=== PATIENT | female | born 1935 ===

== ENCOUNTER 2020-12-25 11:15 | Inpatient (IN) | payer MEDICARE ==
--- NOTE | 2020-12-25 11:30 | Event Note ---
ED Screening Note Date of service: 12/25/20 Time: 11:23 ED Screening Note: Patient sent here by PCP for hypokalemia and UTI Denies symptoms This initial assessment/diagnostic orders/clinical plan/treatment(s) is/are subject to change based on patients health status, clinical progression and re- assessment by fellow clinical providers in the ED. Further treatment and workup at subsequent clinical providers discretion. Patient/guardian urged not to elope from the ED as their condition may be serious if not clinically assessed and managed. Initial orders include: labs
[2020-12-25 12:16] LABS: Hematocrit 35.1 % (30.3-42.9); Hemoglobin 11.7 gm/dl (10.1-14.3); Mean Corpuscular HGB Conc 33 % (30-34); Mean Corpuscular Volume 77 fl (79-97); Platelet Count 473 K/mm3 (140-440); Red Blood Count 4.56 M/mm3 (3.65-5.03); Red Cell Distribution Width 19.1 % (13.2-15.2)
[2020-12-25 12:20] LABS: Albumin 3.5 g/dL (3.9-5); Calcium 9.4 mg/dL (8.4-10.2)
[2020-12-25] MEDS ORDERED: SODIUM CHLORIDE 0.9% 1000 ML IV SOLN IV ONE (12:41)
[2020-12-25] MEDS ORDERED: POTASSIUM CHLORIDE 10 MEQ 10 MEQ/100 ML BAG IV ONE (12:45)
--- NOTE | 2020-12-25 13:01 | Emergency Department Report ---
ED General Adult HPI - General Chief complaint: Recheck/Abnormal Lab/Rx Stated complaint: ABNORMAL LABS Time Seen by Provider: 12/25/20 11:20 Source: patient Mode of arrival: Ambulatory Limitations: No Limitations - History of Present Illness Initial comments: Patient 85-year-old female with past medical history of hypertension diabetes who is presenting with abnormal laboratory studies. Patient was seen by her primary care physician yesterday and was called to come in for evaluation. Patient has had fatigue and decreased ability to ambulate with less eating and drinking over the last several days. Laboratory studies showed a elevated white count, low potassium level, and evidence of UTI. Patient states she feels just fatigued and tired. She states when she walks she is gets very fatigued and has to stop. She denies any cough congestion nausea vomiting or diarrhea at this time. - Related Data Allergies Allergy/AdvReac Type Severity Reaction Status Date / Time Penicillins Allergy Unknown Verified 12/25/20 11:19 ED Review of Systems ROS: Stated complaint: ABNORMAL LABS Other details as noted in HPI Comment: All other systems reviewed and negative ED Past Medical Hx - Past Medical History Hx Hypertension: Yes Hx Diabetes: Yes - Surgical History Additional Surgical History: kidney - Social History Smoking Status: Never Smoker ED Physical Exam - General Limitations: No Limitations General appearance: alert, in no apparent distress - Head Head exam: Present: atraumatic, normocephalic - Eye Eye exam: Present: normal appearance, PERRL, EOMI - ENT ENT exam: Present: mucous membranes moist - Neck Neck exam: Present: normal inspection - Respiratory Respiratory exam: Present: normal lung sounds bilaterally. Absent: respiratory distress, wheezes, rales, rhonchi - Cardiovascular Cardiovascular Exam: Present: regular rate, normal rhythm, normal heart sounds. Absent: systolic murmur, diastolic murmur, rubs, gallop - GI/Abdominal GI/Abdominal exam: Present: soft, normal bowel sounds. Absent: distended, tenderness, guarding, rebound - Extremities Exam Extremities exam: Present: normal inspection - Back Exam Back exam: Present: normal inspection - Neurological Exam Neurological exam: Present: alert, oriented X3 - Psychiatric Psychiatric exam: Present: normal affect, normal mood - Skin Skin exam: Present: warm, dry, intact, normal color. Absent: rash ED Course Vital Signs 12/25/20 12/25/20 12/25/20 11:19 12:48 13:00 Temperature 98.0 F Pulse Rate 76 79 73 Respiratory 18 25 H 24 Rate Blood Pressure 130/75 O2 Sat by Pulse 92 91 Oximetry 12/25/20 12/25/20 12/25/20 13:15 13:30 13:46 Temperature Pulse Rate 70 73 74 Respiratory 23 20 24 Rate Blood Pressure 144/64 144/64 148/66 O2 Sat by Pulse 92 92 92 Oximetry 12/25/20 12/25/20 12/25/20 14:00 14:16 15:25 Temperature Pulse Rate 70 67 66 Respiratory 20 22 21 Rate Blood Pressure 149/98 163/79 158/70 O2 Sat by Pulse 93 94 93 Oximetry 12/25/20 15:28 Temperature 98 F Pulse Rate Respiratory Rate Blood Pressure O2 Sat by Pulse Oximetry ED Medical Decision Making - Lab Data Result diagrams: 12/25/20 11:35 12/25/20 11:35 Lab Results 12/25/20 12/25/20 Range/Units 11:35 11:35 WBC 20.1 H (4.5-11.0) K/mm3 RBC 4.56 (3.65-5.03) M/mm3 Hgb 11.7 (10.1-14.3) gm/dl Hct 35.1 (30.3-42.9) % MCV 77 L (79-97) fl MCH 26 L (28-32) pg MCHC 33 (30-34) % RDW 19.1 H (13.2-15.2) % Plt Count 473 H (140-440) K/mm3 Seg Neutrophils % Fly Fishing Guide Sodium 122 L (137-145) mmol/L Potassium 2.7 L* (3.6-5.0) mmol/L Chloride 80.2 L (98-107) mmol/L Carbon Dioxide 21 L (22-30) mmol/L Anion Gap 24 mmol/L BUN 35 H (7-17) mg/dL Creatinine 0.9 (0.6-1.2) mg/dL Estimated GFR 60 ml/min BUN/Creatinine Ratio 39 % Glucose 154 H (65-100) mg/dL Calcium 9.4 (8.4-10.2) mg/dL Magnesium 2.20 (1.7-2.3) mg/dL Total Bilirubin 0.90 (0.1-1.2) mg/dL AST 34 (5-40) units/L ALT 29 (7-56) units/L Alkaline Phosphatase 77 (35-129) units/L Total Protein 7.0 (6.3-8.2) g/dL Albumin 3.5 L (3.9-5) g/dL Albumin/Globulin Ratio 1.0 % Patient sodium on laboratory studies yesterday was 133 and there has been a significant drop to 122. Potassium 2.7. Patient's white count was 16 yesterday is now elevated to 20 Lab Results 12/25/20 12/25/20 Range/Units 11:35 11:35 WBC 20.1 H (4.5-11.0) K/mm3 RBC 4.56 (3.65-5.03) M/mm3 Hgb 11.7 (10.1-14.3) gm/dl Hct 35.1 (30.3-42.9) % MCV 77 L (79-97) fl MCH 26 L (28-32) pg MCHC 33 (30-34) % RDW 19.1 H (13.2-15.2) % Plt Count 473 H (140-440) K/mm3 Add Manual Diff Complete Total Counted 100 Seg Neutrophils % Fly Fishing Guide Seg Neuts % (Manual) 89.0 H (40.0-70.0) % Band Neutrophils % 2.0 % Lymphocytes % (Manual) 5.0 L (13.4-35.0) % Monocytes % (Manual) 4.0 (0.0-7.3) % Nucleated RBC % Not Reportable Seg Neutrophils # Man 17.9 H (1.8-7.7) K/mm3 Band Neutrophils # 0.4 K/mm3 Lymphocytes # (Manual) 1.0 L (1.2-5.4) K/mm3 Abs React Lymphs (Man) 0.0 K/mm3 Monocytes # (Manual) 0.8 (0.0-0.8) K/mm3 Eosinophils # (Manual) 0.0 (0.0-0.4) K/mm3 Basophils # (Manual) 0.0 (0.0-0.1) K/mm3 Metamyelocytes # 0.0 K/mm3 Myelocytes # 0.0 K/mm3 Promyelocytes # 0.0 K/mm3 Blast Cells # 0.0 K/mm3 WBC Morphology Not Reportable Hypersegmented Neuts Not Reportable Hyposegmented Neuts Not Reportable Hypogranular Neuts Not Reportable Smudge Cells Not Reportable Toxic Granulation Not Reportable Toxic Vacuolation Not Reportable Dohle Bodies Not Reportable Pelger-Huet Anomaly Not Reportable Ernie Rods Not Reportable Platelet Estimate Consistent w auto Clumped Platelets Not Reportable Plt Clumps, EDTA Not Reportable Large Platelets Not Reportable Giant Platelets Not Reportable Platelet Satelliting Not Reportable Plt Morphology Comment Not Reportable RBC Morphology Not Reportable Dimorphic RBCs Not Reportable Polychromasia Not Reportable Hypochromasia 1+ Poikilocytosis Not Reportable Anisocytosis 1+ Microcytosis Not Reportable Macrocytosis Not Reportable Spherocytes Not Reportable Pappenheimer Bodies Not Reportable Sickle Cells Not Reportable Target Cells Not Reportable Tear Drop Cells Not Reportable Ovalocytes Not Reportable Helmet Cells Not Reportable [place] Bodies Not Reportable [place] Rings Not Reportable Trina Cells Not Reportable Bite Cells Not Reportable Crenated Cell Not Reportable Elliptocytes Not Reportable Acanthocytes (Spur) Not Reportable Rouleaux Not Reportable Hemoglobin C Crystals Not Reportable Schistocytes Not Reportable Malaria parasites Not Reportable Louis Bodies Not Reportable Hem Pathologist Commnt No Sodium 122 L (137-145) mmol/L Potassium 2.7 L* (3.6-5.0) mmol/L Chloride 80.2 L (98-107) mmol/L Carbon Dioxide 21 L (22-30) mmol/L Anion Gap 24 mmol/L BUN 35 H (7-17) mg/dL Creatinine 0.9 (0.6-1.2) mg/dL Estimated GFR 60 ml/min BUN/Creatinine Ratio 39 % Glucose 154 H (65-100) mg/dL Calcium 9.4 (8.4-10.2) mg/dL Magnesium 2.20 (1.7-2.3) mg/dL Total Bilirubin 0.90 (0.1-1.2) mg/dL AST 34 (5-40) units/L ALT 29 (7-56) units/L Alkaline Phosphatase 77 (35-129) units/L Total Protein 7.0 (6.3-8.2) g/dL Albumin 3.5 L (3.9-5) g/dL Albumin/Globulin Ratio 1.0 % - EKG Data -: EKG Interpreted by Me - EKG Data 12/25/20 13:43 EKG shows sinus rhythm with a rate of 71. Evidence of LVH. Poor R wave progression. Intervals showed prolonged QT. No ST segment elevations or depressions. Occasional PVC - Medical Decision Making Patient with significant drop in the sodium level. Patient started on IV hydration and she will be admitted to the hospitalist service. Was reported that the patient had a UTI prior to her arrival. Urine appears normal at this time however cultures will be done. Is possible patient is already been pretreated with some antibiotics and is improving. White count is significantly elevated. Patient mated to the hospitalist service. Critical care attestation.: If time is entered above; I have spent that time in minutes in the direct care of this critically ill patient, excluding procedure time. ED Disposition Clinical Impression: Hypokalemia, Hyponatremia, Dehydration, Failure to thrive Disposition: 09 OP ADMIT IP TO THIS HOSP Is pt being admited?: Yes Does the pt Need Aspirin: No Condition: Stable Time of Disposition: 15:44
--- NOTE | 2020-12-25 13:29 | XRay Report ---
CHEST 1 VIEW INDICATION: dyspnea. COMPARISON: None. FINDINGS: Support devices: None. Heart: Normal. Lungs/Pleura: No acute pulmonary or pleural findings. There is a punctate calcified granuloma in the right lower lung with mild calcified right hilar nodes. There is elevation the left hemidiaphragm wit h presumed atelectasis in the left lung base. IMPRESSION: 1. No acute findings. Signer Name: Lorenzo Reddy MD Signed: 12/25/2020 1:25 PM Workstation Name: [id number]
[2020-12-25] MEDS ORDERED: ACETAMINOPHEN 325 MG TAB PO PRN ×2 (13:55→14:30)
--- NOTE | 2020-12-25 13:55 | History and Physical Report ---
History of Present Illness Chief complaint: She is just real weak History of present illness: 85 YO Female with HTN, DM, Vascular Dementia without Behavioral Disturbance, Cerebral Atherosclerosis presents ED for evaluation. Patient reports "I feel weak". Patient has diminished cognition at the time my evaluation and provides minimal history. Patient daughter is at bedside during exam and interview and provides more detailed history. As per daughter the patient has experienced increased weakness and confusion over the past 2 weeks with persistently worsening symptoms over the past 1 week. Patient daughter also reports that patient is unable to walk and has diminished oral intake. Patient transported to [facility] via private vehicle for further care and evaluation of the aforementioned symptoms. The patient was seen and evaluated in the emergency department. All lab and imaging studies reviewed. The patient was found to have urinary tract infection complicated by sepsis, hyponatremia, hypokalemia, as well as debility. The patient was found to have a palliative performance score of 30%. The patient is bedbound and nonambulatory and requires 5/6 assistance with activities of daily living. Patient admitted to medical floor and initiated on sepsis protocol. No reports of fever, chills, chest pain, palpitation, productive cough, skin rash, recent ill contacts, or known exposure to COVID-19. No prior admission for review. No medication listed at time of admission for reconciliation. Advanced care planning conducted in ED. Past History Past Medical History: diabetes, hypertension, other (See HPI) Past Surgical History: Other (Kidney surgery) Social history: lives with family. denies: smoking, alcohol abuse, prescription drug abuse Family history: diabetes, hypertension Medications and Allergies Allergies Allergy/AdvReac Type Severity Reaction Status Date / Time Penicillins Allergy Unknown Verified 12/25/20 11:19 Review of Systems ROS unobtainable: due to mental status Exam - Constitutional Vitals: Temp Pulse Resp BP Pulse Ox 98.0 F 76 18 130/75 92 12/25/20 11:19 12/25/20 11:19 12/25/20 11:19 12/25/20 11:19 12/25/20 11:19 General appearance: Present: mild distress - EENT Eyes: Present: PERRL ENT: clear oral mucosa, hearing decreased - Neck Neck: Present: supple, normal ROM - Respiratory Respiratory effort: normal Respiratory: bilateral: CTA - Cardiovascular Heart Sounds: Present: S1 & S2. Absent: rub, click - Extremities Extremities: pulses symmetrical, No edema Peripheral Pulses: abnormal (Capillary refill greater than 3.5 seconds) - Abdominal General gastrointestinal: Present: soft, non-tender, non-distended, normal bowel sounds Female genitourinary: Present: normal - Integumentary Integumentary: Present: dry, clammy, decreased turgor - Musculoskeletal Musculoskeletal: generalized weakness - Psychiatric Psychiatric: no intact judgment & insight, no memory intact, cooperative - Neurologic Neurologic: CNII-XII intact, no focal deficits, moves all extremities, no gait normal Results - Labs CBC & Chem 7: 12/25/20 11:35 12/25/20 11:35 Labs: Abnormal lab results 12/25/20 12/25/20 Range/Units 11:35 11:35 WBC 20.1 H (4.5-11.0) K/mm3 MCV 77 L (79-97) fl MCH 26 L (28-32) pg RDW 19.1 H (13.2-15.2) % Plt Count 473 H (140-440) K/mm3 Sodium 122 L (137-145) mmol/L Potassium 2.7 L* (3.6-5.0) mmol/L Chloride 80.2 L (98-107) mmol/L Carbon Dioxide 21 L (22-30) mmol/L BUN 35 H (7-17) mg/dL Glucose 154 H (65-100) mg/dL Albumin 3.5 L (3.9-5) g/dL Assessment and Plan - Patient Problems (1) Sepsis Status: Acute Plan to address problem: Sepsis protocol: IV fluid resuscitation therapy, IV antibiotic therapy, chest x- ray, urinalysis, blood culture, maintain mean arterial pressure greater than equal to 65, serial lactic acid level. (2) UTI (urinary tract infection) Status: Acute Qualifiers: Encounter type: initial encounter Plan to address problem: CBC, urinalysis, IV antibiotic therapy. (3) Vascular dementia Status: Acute Qualifiers: Dementia behavioral disturbance: without behavioral disturbance Qualified Code(s): F01.50 - Vascular dementia without behavioral disturbance Plan to address problem: Verbal prompting, verbal redirection, benzodiazepine therapy as clinically indicated. (4) Cerebral atherosclerosis Status: Acute Plan to address problem: Supportive care, risk factor reduction, antiplatelet therapy as clinically indicated. (5) Debility Status: Acute Plan to address problem: Fall precautions, supportive care. (6) Hyponatremia syndrome Status: Acute Plan to address problem: IV fluid resuscitation therapy, BMP, repeat BMP in a.m. to monitor serum sodium levels. (7) Hypokalemia Status: Acute Plan to address problem: Repleted in ED, IV magnesium therapy, supportive care, BMP, repeat BMP in a.m. (8) Hypertension Status: Acute Qualifiers: Hypertension type: essential hypertension Qualified Code(s): I10 - Essential (primary) hypertension Plan to address problem: Monitor blood pressure every shift, continue medical management. (9) Diabetes Status: Acute Plan to address problem: Consistent carbohydrate diet, sliding scale insulin therapy, Accu-Chek. (10) DVT prophylaxis Status: Acute Plan to address problem: SCD to bilateral lower extremities while in bed, prophylactic anticoagulation (11) Advance care planning Status: Acute Plan to address problem: Disease education conducted, care plan discussed, diagnosis discussed, prognosis discussed, patient daughter knowledges understanding and agreement with care plan. Patient daughter elects to have home hospice evaluation after discharge. Outpatient hospice consult placed and patient pending evaluation after discharge. Patient is full code, +30 minutes.
[2020-12-25] MEDS ORDERED: POTASSIUM CHLORIDE 20 MEQ PACKET FEEDTUBE NR (13:58)
[2020-12-25 14:41] LABS: Band Neutrophils # (Manual) 0.4 K/mm3; Total Cells Counted 100
[2020-12-25 14:42] LABS: Anisocytosis 1+; Hypochromasia 1+; Platelet Estimate Consistent w Auto
[2020-12-25] MEDS ORDERED: SODIUM CHLORIDE 0.9% 1000 ML 2,000 ML ONE (14:56)
[2020-12-25] MEDS ORDERED: MAGNESIUM SULFATE 1 GM in SODIUM CHLORIDE 0.9% 50 ML IV ONE (14:59)
[2020-12-25] MEDS ORDERED: HYDROmorphone 1 MG/1 ML INJ IV PRN (15:00)
[2020-12-25 15:30] LABS: Bilirubin,Urine NEG (Negative); Blood,Urine SM (Negative); Color,Urine Amber (Yellow); Mucus,Urine FEW /HPF
[2020-12-25 15:39] LABS: Protein,Urine >500 mg/dL (Negative)
[2020-12-25] MEDS ORDERED: ALBUTEROL 2.5 MG/3 ML NEBU IH PRN (16:00)
[2020-12-25] MEDS: ONDANSETRON 4 MG/2 ML INJ IV PRN (23:49)
[2020-12-26] MEDS ORDERED: amLODIPine 5 MG TAB PO SCH (14:00)
[2020-12-26] MEDS: atenoloL 50 MG TAB PO SCH (14:56)
[2020-12-26] MEDS: FLUoxetine 20 MG CAP PO SCH (14:56)
[2020-12-26] MEDS: amLODIPine 10 MG TAB PO SCH (14:56)
--- NOTE | 2020-12-26 15:07 | Progress Note ---
Assessment and Plan 85 YO Female with HTN, DM, Vascular Dementia without Behavioral Disturbance, Cerebral Atherosclerosis presents ED for generalized weakness. In the ER patient found to have hyponatremia hypokalemia dehydration and physical debility. The patient is bedbound and nonambulatory and requires 5/6 assistance with activities of daily living. Patient admitted to the medical floor for further evaluation and management. A/P -- Vascular dementia Verbal prompting, verbal redirection, benzodiazepine therapy as clinically indicated. --Cerebral atherosclerosis Supportive care, risk factor reduction, antiplatelet therapy as clinically indicated. --Physical debility Fall precautions, supportive care. --Hyponatremia syndrome Likely due to dehydration and lacking oral intake IV fluid resuscitation therapy, BMP, repeat BMP in a.m. to monitor serum sodium levels. -- Hypokalemia Repleted in ED, IV magnesium therapy, supportive care, repeat BMP in a.m. -- Hypertension Monitor blood pressure every shift, continue medical management. Resume patient's home meds -- Diabetes mellitus type II Consistent carbohydrate diet, sliding scale insulin therapy, Accu-Chek. -- DVT prophylaxis SCD to bilateral lower extremities while in bed, prophylactic anticoagulation -- Advance care planning Disease education conducted, care plan discussed, diagnosis discussed, prognosis discussed. Patient daughter elects to have home hospice evaluation after discharge. Outpatient hospice consult placed and patient pending evaluation after discharge. full code, +30 minutes. Daily clinical course: 12/26/20; continue IV fluids. Resume home meds, continue consistent carb with sliding scale insulin. Start on nutritional supplement as pt is Having limited oral intake. PT eval, discussed with protective services case worker for hospice placement. Subjective Date of service: 12/26/20 Interval history: Patient seen and examined. Medical records and medication list reviewed. No acute event overnight noted by the RN. Patient denies any chest pain or difficulty breathing. Patient states she does not have much appetite to eat She denies any abdominal pain nausea or vomiting Discussed plan of care at bedside with patient. Objective - Exam Narrative Exam: GENERAL: well-developed white female lying on bed appeared to be in no discomfort. HEENT: Normocephalic. Atraumatic. No conjunctival congestion or icterus. Patient has moist mucous membranes. NECK: Supple. Trachea midline. CHEST/LUNGS: Clear to auscultated bilaterally, breathing nonlabored. No wheezes crackles or rhonchi. HEART/CARDIOVASCULAR: Regular in rate and rhythm. S1 and S2 positive. ABDOMEN: Abdomen is soft, nontender. Patient has normal bowel sounds. SKIN: There is no rash. Warm and dry. NEURO: No focal motor deficit. Follows command. MUSCULOSKELETAL: No joint effusion or tenderness. EXTRIMITY: No edema, no cyanosis or clubbing. PSYCH: Cooperative. - Constitutional Vitals: Vital Signs - 12hr 12/26/20 12/26/20 12/26/20 06:12 08:50 11:34 Temperature 97.5 F L 98.4 F Pulse Rate 69 100 H Respiratory 20 Rate Blood Pressure 143/46 168/91 O2 Sat by Pulse 97 97 94 Oximetry 12/26/20 14:56 Temperature Pulse Rate 89 Respiratory Rate Blood Pressure 168/78 O2 Sat by Pulse Oximetry - Labs CBC & Chem 7: 12/25/20 11:35 12/25/20 11:35
[2020-12-26 15:42] LABS: Blood Urea Nitrogen 19 mg/dL (7-17); Calcium 9.4 mg/dL (8.4-10.2); Hemolysis Index 154
[2020-12-26 15:45] LABS: BUN/Creatinine Ratio 32
[2020-12-26 15:49] LABS: Mean Corpuscular HGB Conc 33 % (30-34); Mean Corpuscular Volume 78 fl (79-97); Red Blood Count 4.64 M/mm3 (3.65-5.03); Red Cell Distribution Width 19.3 % (13.2-15.2)
[2020-12-26 15:57] LABS: Platelet Count 293 K/mm3 (140-440)
[2020-12-26] MEDS: POTASSIUM CHLORIDE ER 20 MEQ TAB PO SCH ×2 (17:40→21:25)
[2020-12-26] MEDS: INSULIN REGULAR, HUMAN 100 UNITS/1 ML SUB-Q SCH ×2 (17:42→22:21)
[2020-12-27 06:05] LABS: Hematocrit 32.4 % (30.3-42.9); Hemoglobin 10.7 gm/dl (10.1-14.3); Mean Corpuscular HGB Conc 33 % (30-34); Mean Corpuscular Volume 78 fl (79-97); Platelet Count 419 K/mm3 (140-440); Red Blood Count 4.16 M/mm3 (3.65-5.03); Red Cell Distribution Width 19.2 % (13.2-15.2)
[2020-12-27 06:19] LABS: BUN/Creatinine Ratio 26; Blood Urea Nitrogen 21 mg/dL (7-17); Calcium 9.6 mg/dL (8.4-10.2); Hemolysis Index 16
[2020-12-27] MEDS ORDERED: POTASSIUM CHLORIDE ER 20 MEQ TAB PO ONE (07:00)
[2020-12-27] MEDS: INSULIN REGULAR, HUMAN 100 UNITS/1 ML SUB-Q SCH ×4 (07:30→22:00)
[2020-12-27 07:50] LABS: Total Cells Counted 100
[2020-12-27 07:51] LABS: Anisocytosis 1+; Hypochromasia 1+; Large Platelets Few; Platelet Estimate Consistent w Auto
[2020-12-27] MEDS: POTASSIUM CHLORIDE 10 MEQ 10 MEQ/100 ML BAG IV SCH ×2 (08:45→09:34)
[2020-12-27] MEDS: ONDANSETRON 4 MG/2 ML INJ IV PRN (08:54)
[2020-12-27] MEDS: atenoloL 50 MG TAB PO SCH (09:23)
[2020-12-27] MEDS: FAMOTIDINE 10 MG TAB PO SCH (09:23)
[2020-12-27] MEDS: FLUoxetine 20 MG CAP PO SCH (09:23)
[2020-12-27] MEDS: amLODIPine 10 MG TAB PO SCH (09:23)
[2020-12-27] MEDS ORDERED: POTASSIUM CHLORIDE ER 20 MEQ TAB PO NR (10:30)
[2020-12-27] MEDS ORDERED: POTASSIUM CHLORIDE 10 MEQ 10 MEQ/100 ML BAG IV SCH (11:00)
--- NOTE | 2020-12-27 15:19 | Progress Note ---
Assessment and Plan 85 YO Female with HTN, DM, Vascular Dementia without Behavioral Disturbance, Cerebral Atherosclerosis presents ED for generalized weakness. In the ER patient found to have hyponatremia hypokalemia dehydration and physical debility. The patient is bedbound and nonambulatory and requires 5/6 assistance with activities of daily living. Patient admitted to the medical floor for further evaluation and management. A/P --SIRS, cont empiric abx for now, UA normal, CXR normal. follow blood cx pt spiking fever, no clear etiology yet, will consult ID -- Vascular dementia Verbal prompting, verbal redirection, benzodiazepine therapy as clinically indicated. --Cerebral atherosclerosis Supportive care, risk factor reduction, antiplatelet therapy as clinically indicated. --Physical debility Fall precautions, supportive care. PT eval --Hyponatremia syndrome Likely due to dehydration and lacking oral intake IV fluid resuscitation therapy, BMP, repeat BMP in a.m. to monitor serum sodium levels. -- Hypokalemia 2.8 today with EKG prolonged MD and generalized weakness, cont to replete check phosphorus level -- Hypertension Monitor blood pressure every shift, continue medical management. Resume patient's home meds -- Diabetes mellitus type II Consistent carbohydrate diet, sliding scale insulin therapy, Accu-Chek. -- DVT prophylaxis SCD to bilateral lower extremities while in bed, prophylactic anticoagulation -- Advance care planning Disease education conducted, care plan discussed, diagnosis discussed, prognosis discussed. Patient daughter elects to have home hospice evaluation after discharge. Outpatient hospice consult placed and patient pending evaluation after discharge. full code, +30 minutes. Daily clinical course: 12/26/20; continue IV fluids. Resume home meds, continue consistent carb with sliding scale insulin. Start on nutritional supplement as pt is Having limited oral intake. PT eval, discussed with immigration case manager for hospice placement. 12/27/20; white count remains elevated, no clear source of infection yet. Continue to replete potassium-today K was 2.8. patient spiking fever, will consult ID. Subjective Date of service: 12/27/20 Interval history: Patient seen and examined. Medical records and medication list reviewed. No acute event overnight noted by the RN. Patient spiking fever, one out of 2 blood cx negative Discussed plan of care at bedside with patient. Objective - Exam Narrative Exam: GENERAL: elderly white female lying on bed appeared to be lethargic but able to follow commend HEENT: Normocephalic. Atraumatic. No conjunctival congestion or icterus. Patient has moist mucous membranes. NECK: Supple. Trachea midline. CHEST/LUNGS: Clear to auscultated bilaterally, breathing nonlabored. No wheezes crackles or rhonchi. HEART/CARDIOVASCULAR: Regular in rate and rhythm. S1 and S2 positive. ABDOMEN: Abdomen is soft, nontender. Patient has normal bowel sounds. SKIN: There is no rash. Warm and dry. NEURO: No focal motor deficit. Follows command. MUSCULOSKELETAL: No joint effusion or tenderness. EXTRIMITY: No edema, no cyanosis or clubbing. PSYCH: Cooperative. - Constitutional Vitals: Vital Signs - 12hr 12/27/20 12/27/20 12/27/20 04:26 04:34 05:34 Temperature 99.3 F Pulse Rate 95 H Respiratory 24 17 17 Rate Blood Pressure 135/54 O2 Sat by Pulse 87 Oximetry 12/27/20 12/27/20 12/27/20 09:04 11:11 11:12 Temperature 97.3 F L Pulse Rate 92 H 93 H Respiratory 20 Rate Blood Pressure 132/79 O2 Sat by Pulse 92 91 91 Oximetry - Labs CBC & Chem 7: 12/27/20 05:10 12/27/20 05:10 Labs: Abnormal lab results 12/26/20 12/26/20 12/26/20 Range/Units 15:02 15:07 15:07 WBC 17.9 H (4.5-11.0) K/mm3 MCV 78 L (79-97) fl MCH 26 L (28-32) pg RDW 19.3 H (13.2-15.2) % Seg Neuts % (Manual) (40.0-70.0) % Monocytes % (Manual) (0.0-7.3) % Seg Neutrophils # Man (1.8-7.7) K/mm3 Lymphocytes # (Manual) (1.2-5.4) K/mm3 Monocytes # (Manual) (0.0-0.8) K/mm3 Sodium 122 L (137-145) mmol/L Potassium 2.7 L* (3.6-5.0) mmol/L Chloride 82.7 L (98-107) mmol/L BUN 19 H (7-17) mg/dL Glucose 138 H (65-100) mg/dL POC Glucose 161 H (70-105) mg/dL Phosphorus (2.5-4.5) mg/dL 12/26/20 12/27/20 12/27/20 Range/Units 21:19 05:10 05:10 WBC 21.7 H (4.5-11.0) K/mm3 MCV 78 L (79-97) fl MCH 26 L (28-32) pg RDW 19.2 H (13.2-15.2) % Seg Neuts % (Manual) 92.0 H (40.0-70.0) % Monocytes % (Manual) 8.0 H (0.0-7.3) % Seg Neutrophils # Man 20.0 H (1.8-7.7) K/mm3 Lymphocytes # (Manual) 0.0 L (1.2-5.4) K/mm3 Monocytes # (Manual) 1.7 H (0.0-0.8) K/mm3 Sodium 128 L (137-145) mmol/L Potassium 2.8 L* (3.6-5.0) mmol/L Chloride 86.3 L (98-107) mmol/L BUN 21 H (7-17) mg/dL Glucose 147 H (65-100) mg/dL POC Glucose 142 H (70-105) mg/dL Phosphorus (2.5-4.5) mg/dL 12/27/20 12/27/20 Range/Units 06:52 07:33 WBC (4.5-11.0) K/mm3 MCV (79-97) fl MCH (28-32) pg RDW (13.2-15.2) % Seg Neuts % (Manual) (40.0-70.0) % Monocytes % (Manual) (0.0-7.3) % Seg Neutrophils # Man (1.8-7.7) K/mm3 Lymphocytes # (Manual) (1.2-5.4) K/mm3 Monocytes # (Manual) (0.0-0.8) K/mm3 Sodium (137-145) mmol/L Potassium (3.6-5.0) mmol/L Chloride (98-107) mmol/L BUN (7-17) mg/dL Glucose (65-100) mg/dL POC Glucose 163 H (70-105) mg/dL Phosphorus 1.50 L (2.5-4.5) mg/dL
[2020-12-27] MEDS ORDERED: ALUM-MAG HYDROXIDE-SIMETHICONE 200-200-20MG/5ML ORAL LIQD 30 ML PO PRN (15:33)
[2020-12-27] MEDS ORDERED: FUROSEMIDE 20 MG/2 ML INJ IV PRN (19:45)
--- NOTE | 2020-12-27 20:17 | XRay Report ---
CHEST 1 VIEW 12/27/2020 7:44 PM INDICATION / CLINICAL INFORMATION: SEPSIS,CHANGES IN STATUS. COMPARISON: 12/25/2020 FINDINGS: SUPPORT DEVICES: None. HEART / MEDIASTINUM: Stable. LUNGS / PLEURA: Moderate bilateral consolidative changes which are mostly in the lower lungs and the medial aspect of the right upper lung. No pneumothorax. ADDITIONAL FINDINGS: No significant additional findings. IMPRESSION: 1. Moderate bilateral consolidative changes, greatest in the left lower lung, however also present on the right. Findings are concerning for aspiration, edema, or pneumonia. Appearance is new/worse when compared to 12/25/2020. Signer Name: Neo Joseph MD Signed: 12/27/2020 8:13 PM Workstation Name: [id number]
[2020-12-27] MEDS ORDERED: FUROSEMIDE 40 MG/4 ML INJ IV ONE (22:45)
[2020-12-28] MEDS ORDERED: ACETAMINOPHEN 650 MG RECT SUPP PR PRN ×2 (05:30→10:00)
[2020-12-28] MEDS: INSULIN REGULAR, HUMAN 100 UNITS/1 ML SUB-Q SCH ×4 (07:30→23:18)
[2020-12-28] MEDS: FAMOTIDINE 10 MG TAB PO SCH (09:44)
[2020-12-28] MEDS: amLODIPine 10 MG TAB PO SCH (09:44)
[2020-12-28] MEDS: atenoloL 50 MG TAB PO SCH (09:45)
[2020-12-28] MEDS: FLUoxetine 20 MG CAP PO SCH (09:45)
[2020-12-28 10:40] LABS: Hematocrit 32.2 % (30.3-42.9); Hemoglobin 10.4 gm/dl (10.1-14.3); Lymphocytes # (Auto) 0.3 K/mm3 (1.2-5.4); Lymphocytes % (Auto) 1.8 % (13.4-35.0); Mean Corpuscular HGB Conc 32 % (30-34); Mean Corpuscular Volume 81 fl (79-97); Monocytes # (Auto) 1.2 K/mm3 (0.0-0.8); Monocytes % (Auto) 8.2 % (0.0-7.3); Platelet Count 399 K/mm3 (140-440); Red Blood Count 3.97 M/mm3 (3.65-5.03); Red Cell Distribution Width 19.5 % (13.2-15.2)
--- NOTE | 2020-12-28 10:55 | Consultation ---
History of Present Illness - Reason for Consult Consult date: 12/28/20 Sepsis Requesting physician: RUDOLPH CHENG - History of Present Illness The patient is a 80-year-old female with hypertension, dementia, diabetes mellitus, admitted to the hospital with weakness. Patient is a poor historian. Upon evaluation in the ER, she was noted to have leukocytosis. She has also been spiking fevers up to 102 F, hence infectious diseases was consulted. UA did not show any significant pyuria. Labs showed significant electrolyte abnormalities. Initial chest x-ray does not show pneumonia however repeat chest x-ray from yesterday does show bilateral consolidative changes more on the left. Due to worsening respiratory distress, she is now on BiPAP with 100% FiO2. Is quite drowsy. Moved to ICU. Review of Systems: Limited due to altered mental status Past History Past Medical History: diabetes, hypertension, other (See HPI) Past Surgical History: Other (Kidney surgery) Social history: lives with family. denies: smoking, alcohol abuse, prescription drug abuse Family history: diabetes, hypertension Medications and Allergies Allergies Allergy/AdvReac Type Severity Reaction Status Date / Time Penicillins Allergy Unknown Verified 12/25/20 11:19 Home Medications Medication Instructions Recorded Confirmed Last Taken Type Amlodipine Besylate [Norvasc] 10 mg PO DAILY 12/26/20 12/26/20 Unknown History FLUoxetine HCL [Prozac] 20 mg PO DAILY 12/26/20 12/26/20 Unknown History Famotidine [Acid Controller] 20 mg PO DAILY 12/26/20 12/26/20 Unknown History ISOSORBIDE MONOnitrate [Imdur ER] 30 mg PO DAILY 12/26/20 12/26/20 Unknown History atenoloL [Tenormin] 50 mg PO DAILY 12/26/20 12/26/20 Unknown History hydroCHLOROthiazide [HCTZ] 25 mg PO DAILY 12/26/20 12/26/20 Unknown History metFORMIN [Glucophage] 500 mg PO BID 12/26/20 12/26/20 Unknown History Active Meds: Active Medications Acetaminophen (Acetaminophen 325 Mg Tab) 650 mg PO Q4H PRN PRN Reason: Pain MILD(1-3)/Fever >100.5/JAIME Last Admin: 12/27/20 04:34 Dose: 650 mg Documented by: Acetaminophen (Acetaminophen 650 Mg Rect Supp) 650 mg [place] Q4H PRN PRN Reason: Pain, Mild (1-3) Last Admin: 12/28/20 10:01 Dose: 650 mg Documented by: Al Hydrox/Mg Hydrox/Simethicone (Alum-Mag Hydroxide-Simethicone [phone]/5ml Oral Liqd 30 Ml) 15 ml PO Q4H PRN PRN Reason: Indigestion Last Admin: 12/27/20 16:49 Dose: 15 ml Documented by: Albuterol (Albuterol 2.5 Mg/3 Ml Nebu) 2.5 mg IH Q4HRT PRN PRN Reason: Shortness Of Breath Last Admin: 12/27/20 22:11 Dose: 2.5 mg Documented by: Albuterol/Ipratropium (Ipratropium/Albuterol Sulfate 3 Ml Ampul.Neb) 1 ampul IH Q6HRT [facility] Amlodipine Besylate (Amlodipine 10 Mg Tab) 10 mg PO DAILY [facility] Last Admin: 12/28/20 09:44 Dose: Not Given Documented by: Atenolol (Atenolol 50 Mg Tab) 50 mg PO DAILY [facility] Last Admin: 12/28/20 09:45 Dose: Not Given Documented by: Famotidine (Famotidine 10 Mg Tab) 20 mg PO DAILY [facility] Last Admin: 12/28/20 09:44 Dose: Not Given Documented by: Fluoxetine HCl (Fluoxetine 20 Mg Cap) 20 mg PO DAILY [facility] Last Admin: 12/28/20 09:45 Dose: Not Given Documented by: Furosemide (Furosemide 20 Mg/2 Ml Inj) 10 mg IV ONCE PRN PRN Reason: ABNORMAL BLOOD GAS,CONGESTION. Last Admin: 12/27/20 20:28 Dose: 10 mg Documented by: Hydromorphone HCl (Hydromorphone 1 Mg/1 Ml Inj) 0.25 mg IV Q4H PRN PRN Reason: Pain, Moderate (4-6) Last Admin: 12/25/20 19:32 Dose: 0.25 mg Documented by: Levofloxacin/Dextrose (Levaquin 750mg/150ml) 750 mg in 150 mls @ 100 mls/hr IV Q24H [facility]; Protocol Vancomycin HCl (Vancomycin/Ns 1 Gm/250 Ml) 1 gm in 250 mls @ 166.667 mls/hr IV Q12H [facility]; Protocol Dextrose/Sodium Chloride (D5ns) 1,000 mls @ 42 mls/hr IV DIRECT [facility] Levofloxacin/Dextrose (Levaquin 500mg/100ml) 500 mg in 100 mls @ 100 mls/hr IV ONCE ONE Stop: 12/28/20 11:59 Last Admin: 12/28/20 10:45 Dose: 100 mls/hr Documented by: Vancomycin HCl 1,500 mg/ (Sodium Chloride) 530 mls @ 333.333 mls/hr IV ONCE ONE Stop: 12/28/20 14:35 Insulin Human Regular (Insulin Regular, Human 100 Units/1 Ml) 0 units SUB-Q ACHS [facility]; Protocol Last Admin: 12/28/20 07:30 Dose: Not Given Documented by: Isosorbide Mononitrate (Isosorbide Mononitrate Er 30 Mg Tab) 30 mg PO DAILY [facility] Last Admin: 12/28/20 09:44 Dose: Not Given Documented by: Ondansetron HCl (Ondansetron 4 Mg/2 Ml Inj) 4 mg IV Q8H PRN PRN Reason: Nausea And Vomiting Last Admin: 12/27/20 08:54 Dose: 4 mg Documented by: Sodium Chloride (Sodium Chloride 0.9% 10 Ml Flush Syringe) 10 ml IV BID [facility] Last Admin: 12/28/20 09:45 Dose: 10 ml Documented by: Sodium Chloride (Sodium Chloride 0.9% 10 Ml Flush Syringe) 10 ml IV PRN PRN PRN Reason: LINE FLUSH Stop: 01/05/21 13:54 Physical Examination - Physical Exam Narrative exam: Physical Exam: Constitutional:drowsy, on BiPAP Head, Ears, Nose: Normocephalic, atraumatic. External ears, nose normal Eyes: Conjunctivae/corneas clear. No icterus. No ptosis. Neck: Supple, no meningeal signs Oral: BiPAP Cardiovascular: S1, S2 normal. Respiratory: b/l rhonchi + GI: Soft, non-tender; bowel sounds normal. No peritoneal signs Musculoskeletal: No pedal edema, no cyanosis. Skin: No rash or abscess Hem/Lymphatic: No palpable cervical or supraclavicular nodes. No lymphangitis Psych: no agitation Neurological: drowsy - Constitutional Vitals: Vital Signs Temp Pulse Resp BP Pulse Ox 102 F H 85 32 H 119/51 94 12/28/20 10:39 06/12/21 10:39 12/28/20 10:39 12/28/20 10:39 12/28/20 10:39 Temperature -Last 24 Hours Temperature 102 F Temperature 102.0 F Temperature 98.9 F Temperature 98.9 F Temperature 99.2 F Temperature 98.9 F Temperature 97.3 F Results - Labs CBC & Chem 7: 12/28/20 10:01 12/28/20 10:01 Labs: Abnormal lab results 12/27/20 12/27/20 12/27/20 Range/Units 06:52 13:16 16:42 WBC (4.5-11.0) K/mm3 MCH (28-32) pg RDW (13.2-15.2) % Lymph % (Auto) (13.4-35.0) % [place] % (Auto) (0.0-7.3) % Lymph # (Auto) (1.2-5.4) K/mm3 [place] # (Auto) (0.0-0.8) K/mm3 Seg Neutrophils % (40.0-70.0) % Seg Neutrophils # (1.8-7.7) K/mm3 POC ABG pCO2 (32.0-48.0) mmHg POC ABG pO2 (83-108) mmHg ABG Oxyhemoglobin (94-98) ABG Chloride (98-107) mmol/L ABG Glucose (65-95) mg/dL POC Glucose 165 H 124 H (70-105) mg/dL Phosphorus 1.50 L (2.5-4.5) mg/dL Arterial Blood Glucose (65-95) mg/dL 12/27/20 12/27/20 12/27/20 Range/Units 19:00 19:21 21:58 WBC (4.5-11.0) K/mm3 MCH (28-32) pg RDW (13.2-15.2) % Lymph % (Auto) (13.4-35.0) % [place] % (Auto) (0.0-7.3) % Lymph # (Auto) (1.2-5.4) K/mm3 [place] # (Auto) (0.0-0.8) K/mm3 Seg Neutrophils % (40.0-70.0) % Seg Neutrophils # (1.8-7.7) K/mm3 POC ABG pCO2 53.3 H (32.0-48.0) mmHg POC ABG pO2 51.3 L (83-108) mmHg ABG Oxyhemoglobin 86.9 L (94-98) ABG Chloride 91.0 L (98-107) mmol/L ABG Glucose 143 H (65-95) mg/dL POC Glucose 141 H 137 H (70-105) mg/dL Phosphorus (2.5-4.5) mg/dL Arterial Blood Glucose 143 H (65-95) mg/dL 12/28/20 12/28/20 Range/Units 07:49 10:01 WBC 15.2 H (4.5-11.0) K/mm3 MCH 26 L (28-32) pg RDW 19.5 H (13.2-15.2) % Lymph % (Auto) 1.8 L (13.4-35.0) % [place] % (Auto) 8.2 H (0.0-7.3) % Lymph # (Auto) 0.3 L (1.2-5.4) K/mm3 [place] # (Auto) 1.2 H (0.0-0.8) K/mm3 Seg Neutrophils % 90.0 H (40.0-70.0) % Seg Neutrophils # 13.6 H (1.8-7.7) K/mm3 POC ABG pCO2 (32.0-48.0) mmHg POC ABG pO2 (83-108) mmHg ABG Oxyhemoglobin (94-98) ABG Chloride (98-107) mmol/L ABG Glucose (65-95) mg/dL POC Glucose 122 H (70-105) mg/dL Phosphorus (2.5-4.5) mg/dL Arterial Blood Glucose (65-95) mg/dL - Imaging and Cardiology Chest x-ray: report reviewed, image reviewed (b/l pneumonia) Assessment and Plan Cultures: 12/25/2020 blood culture: No growth 12/26/2020 blood culture: No growth A/P: 80-year-old female with hypertension, dementia, diabetes mellitus, admitted to the hospital with weakness: #Sepsis, likely secondary to bilateral probably aspiration pneumonia as noted on subsequent chest x-ray. UA did not show any significant pyuria. #Acute hypoxic respiratory failure: on BiPAP #Acute encephalopathy/underlying vascular dementia, also electrolyte abnormalities Recs: Switched to Ceftriaxone and vancomycin MRSA nasal PCR ordered COVID-19 PCR ordered Procalcitonin ordered If fever and leukocytosis remains persistent, obtain CT abdomen and pelvis with IV contrast to look for any additional source of infection Hilaria Glover MD, FACP [facility] O: [phone] F: [phone]
[2020-12-28 11:00] LABS: Calcium 9.9 mg/dL (8.4-10.2)
[2020-12-28] MEDS ORDERED: VANCOMYCIN PHARMACY TO DOSE IV SCH (11:00)
[2020-12-28] MEDS ORDERED: VANCOMYCIN/NS 1 GM/250 ML 1 GM/250 ML BAG IV SCH (11:00)
[2020-12-28] MEDS: cefTRIAXone/NS 2 GM/100 ML 2 GM/100 ML BAG IV SCH (12:18)
[2020-12-28] MEDS ORDERED: POTASSIUM PHOSPHATE 30 MMOL in SODIUM CHLORIDE 0.9% 500 ML 500 ML IV ONE (13:00)
[2020-12-28] MEDS ORDERED: VANCOMYCIN 1,500 MG in SODIUM CHLORIDE 0.9% 500 ML 500 ML IV ONE (13:00)
[2020-12-28] MEDS ORDERED: IPRATROPIUM/ALBUTEROL SULFATE 3 ML AMPUL.NEB IH SCH (14:00)
--- NOTE | 2020-12-28 14:08 | Consultation ---
History of Present Illness Consult date: 12/28/20 Requesting physician: RUDOLPH CHENG Reason for consult: other (Severe Sepsis; Acute Hypoxemic Respiratory Failure) History of present illness: PULMONARY/CCM CONSULT NOTE (Full dictation # [id number]) Please see dictated notes for full details Past History Past Medical History: diabetes, hypertension, other (See HPI) Past Surgical History: Other (Kidney surgery) Social history: lives with family. denies: smoking, alcohol abuse, prescription drug abuse Family history: diabetes, hypertension Medications and Allergies Allergies Allergy/AdvReac Type Severity Reaction Status Date / Time Penicillins Allergy Unknown Verified 12/25/20 11:19 Home Medications Medication Instructions Recorded Confirmed Last Taken Type Amlodipine Besylate [Norvasc] 10 mg PO DAILY 12/26/20 12/26/20 Unknown History FLUoxetine HCL [Prozac] 20 mg PO DAILY 12/26/20 12/26/20 Unknown History Famotidine [Acid Controller] 20 mg PO DAILY 12/26/20 12/26/20 Unknown History ISOSORBIDE MONOnitrate [Imdur ER] 30 mg PO DAILY 12/26/20 12/26/20 Unknown History atenoloL [Tenormin] 50 mg PO DAILY 12/26/20 12/26/20 Unknown History hydroCHLOROthiazide [HCTZ] 25 mg PO DAILY 12/26/20 12/26/20 Unknown History metFORMIN [Glucophage] 500 mg PO BID 12/26/20 12/26/20 Unknown History Active Meds: Active Medications Acetaminophen (Acetaminophen 325 Mg Tab) 650 mg PO Q4H PRN PRN Reason: Pain MILD(1-3)/Fever >100.5/JAIME Last Admin: 12/27/20 04:34 Dose: 650 mg Documented by: Acetaminophen (Acetaminophen 650 Mg Rect Supp) 650 mg [place] Q4H PRN PRN Reason: Pain, Mild (1-3) Last Admin: 12/28/20 10:01 Dose: 650 mg Documented by: Al Hydrox/Mg Hydrox/Simethicone (Alum-Mag Hydroxide-Simethicone [id number]/5ml Oral Liqd 30 Ml) 15 ml PO Q4H PRN PRN Reason: Indigestion Last Admin: 12/27/20 16:49 Dose: 15 ml Documented by: Albuterol (Albuterol 2.5 Mg/3 Ml Nebu) 2.5 mg IH Q4HRT PRN PRN Reason: Shortness Of Breath Last Admin: 12/27/20 22:11 Dose: 2.5 mg Documented by: Amlodipine Besylate (Amlodipine 10 Mg Tab) 10 mg PO DAILY [facility] [place] Last Admin: 12/28/20 09:44 Dose: Not Given Documented by: Atenolol (Atenolol 50 Mg Tab) 50 mg PO DAILY [facility] [place] Last Admin: 12/28/20 09:45 Dose: Not Given Documented by: Famotidine (Famotidine 10 Mg Tab) 20 mg PO DAILY [facility] [place] Last Admin: 12/28/20 09:44 Dose: Not Given Documented by: Fluoxetine HCl (Fluoxetine 20 Mg Cap) 20 mg PO DAILY [facility] [place] Last Admin: 12/28/20 09:45 Dose: Not Given Documented by: Furosemide (Furosemide 20 Mg/2 Ml Inj) 10 mg IV ONCE PRN PRN Reason: ABNORMAL BLOOD GAS,CONGESTION. Last Admin: 12/27/20 20:28 Dose: 10 mg Documented by: Hydromorphone HCl (Hydromorphone 1 Mg/1 Ml Inj) 0.25 mg IV Q4H PRN PRN Reason: Pain, Moderate (4-6) Last Admin: 12/25/20 19:32 Dose: 0.25 mg Documented by: Dextrose/Sodium Chloride (D5ns) 1,000 mls @ 42 mls/hr IV DIRECT [facility] Vancomycin HCl 1,500 mg/ (Sodium Chloride) 530 mls @ 333.333 mls/hr IV ONCE ONE Stop: 12/28/20 14:35 Ceftriaxone Sodium (Rocephin/Ns 2 Gm/100 Ml) 2 gm in 100 mls @ 200 mls/hr IV Q24HR [facility] [place]; Protocol Last Admin: 12/28/20 12:18 Dose: 200 mls/hr Documented by: Potassium Phosphate 30 mmol/ (Sodium Chloride) 510 mls @ 85 mls/hr IV ONCE ONE Stop: 12/28/20 18:59 Insulin Human Regular (Insulin Regular, Human 100 Units/1 Ml) 0 units SUB-Q ACHS [facility]; Protocol Last Admin: 12/28/20 12:30 Dose: Not Given Documented by: Isosorbide Mononitrate (Isosorbide Mononitrate Er 30 Mg Tab) 30 mg PO DAILY [facility] [place] Last Admin: 12/28/20 09:44 Dose: Not Given Documented by: Ondansetron HCl (Ondansetron 4 Mg/2 Ml Inj) 4 mg IV Q8H PRN PRN Reason: Nausea And Vomiting Last Admin: 12/27/20 08:54 Dose: 4 mg Documented by: Sodium Chloride (Sodium Chloride 0.9% 10 Ml Flush Syringe) 10 ml IV BID [facility] Last Admin: 12/28/20 09:45 Dose: 10 ml Documented by: Sodium Chloride (Sodium Chloride 0.9% 10 Ml Flush Syringe) 10 ml IV PRN PRN PRN Reason: LINE FLUSH Stop: 01/05/21 13:54 Physical Examination Vital signs: Vital Signs Temp Pulse Resp BP Pulse Ox 98.0 F 76 18 130/75 92 12/25/20 11:19 12/25/20 11:19 12/25/20 11:19 12/25/20 11:19 12/25/20 11:19 Results - Laboratory Findings CBC and BMP: 12/28/20 10:01 12/28/20 10:01 ABG ABG pH 7.184 (7.320-7.450) L 12/28/20 12:11 POC ABG pCO2 80.7 mmHg (32.0-48.0) H 12/28/20 12:11 POC ABG pO2 76.0 mmHg (83-108) L 12/28/20 12:11 POC ABG HCO3 29.7 12/28/20 12:11 ABG O2 Saturation 93.3 (0-100) 12/28/20 12:11 Abnormal lab findings: Abnormal Labs 12/25/20 12/25/20 12/26/20 11:35 11:35 15:02 WBC 20.1 H MCV 77 L MCH 26 L RDW 19.1 H Plt Count 473 H Lymph % (Auto) [place] % (Auto) Lymph # (Auto) [place] # (Auto) Seg Neutrophils % Seg Neuts % (Manual) 89.0 H Lymphocytes % (Manual) 5.0 L Monocytes % (Manual) Seg Neutrophils # Seg Neutrophils # Man 17.9 H Lymphocytes # (Manual) 1.0 L Monocytes # (Manual) ABG pH POC ABG pCO2 POC ABG pO2 ABG Hemoglobin ABG Oxyhemoglobin ABG Sodium ABG Chloride ABG Glucose Carboxyhemoglobin Sodium 122 L Potassium 2.7 L* Chloride 80.2 L Carbon Dioxide 21 L BUN 35 H Creatinine Glucose 154 H POC Glucose 161 H Phosphorus Albumin 3.5 L Arterial Blood Glucose 12/26/20 12/26/20 12/26/20 15:07 15:07 21:19 WBC 17.9 H MCV 78 L MCH 26 L RDW 19.3 H Plt Count Lymph % (Auto) [place] % (Auto) Lymph # (Auto) [place] # (Auto) Seg Neutrophils % Seg Neuts % (Manual) Lymphocytes % (Manual) Monocytes % (Manual) Seg Neutrophils # Seg Neutrophils # Man Lymphocytes # (Manual) Monocytes # (Manual) ABG pH POC ABG pCO2 POC ABG pO2 ABG Hemoglobin ABG Oxyhemoglobin ABG Sodium ABG Chloride ABG Glucose Carboxyhemoglobin Sodium 122 L Potassium 2.7 L* Chloride 82.7 L Carbon Dioxide BUN 19 H Creatinine Glucose 138 H POC Glucose 142 H Phosphorus Albumin Arterial Blood Glucose 12/27/20 12/27/20 12/27/20 05:10 05:10 06:52 WBC 21.7 H MCV 78 L MCH 26 L RDW 19.2 H Plt Count Lymph % (Auto) [place] % (Auto) Lymph # (Auto) [place] # (Auto) Seg Neutrophils % Seg Neuts % (Manual) 92.0 H Lymphocytes % (Manual) Monocytes % (Manual) 8.0 H Seg Neutrophils # Seg Neutrophils # Man 20.0 H Lymphocytes # (Manual) 0.0 L Monocytes # (Manual) 1.7 H ABG pH POC ABG pCO2 POC ABG pO2 ABG Hemoglobin ABG Oxyhemoglobin ABG Sodium ABG Chloride ABG Glucose Carboxyhemoglobin Sodium 128 L Potassium 2.8 L* Chloride 86.3 L Carbon Dioxide BUN 21 H Creatinine Glucose 147 H POC Glucose Phosphorus 1.50 L Albumin Arterial Blood Glucose 12/27/20 12/27/20 12/27/20 07:33 13:16 16:42 WBC MCV MCH RDW Plt Count Lymph % (Auto) [place] % (Auto) Lymph # (Auto) [place] # (Auto) Seg Neutrophils % Seg Neuts % (Manual) Lymphocytes % (Manual) Monocytes % (Manual) Seg Neutrophils # Seg Neutrophils # Man Lymphocytes # (Manual) Monocytes # (Manual) ABG pH POC ABG pCO2 POC ABG pO2 ABG Hemoglobin ABG Oxyhemoglobin ABG Sodium ABG Chloride ABG Glucose Carboxyhemoglobin Sodium Potassium Chloride Carbon Dioxide BUN Creatinine Glucose POC Glucose 163 H 165 H 124 H Phosphorus Albumin Arterial Blood Glucose 12/27/20 12/27/20 12/27/20 19:00 19:21 21:58 WBC MCV MCH RDW Plt Count Lymph % (Auto) [place] % (Auto) Lymph # (Auto) [place] # (Auto) Seg Neutrophils % Seg Neuts % (Manual) Lymphocytes % (Manual) Monocytes % (Manual) Seg Neutrophils # Seg Neutrophils # Man Lymphocytes # (Manual) Monocytes # (Manual) ABG pH POC ABG pCO2 53.3 H POC ABG pO2 51.3 L ABG Hemoglobin ABG Oxyhemoglobin 86.9 L ABG Sodium ABG Chloride 91.0 L ABG Glucose 143 H Carboxyhemoglobin Sodium Potassium Chloride Carbon Dioxide BUN Creatinine Glucose POC Glucose 141 H 137 H Phosphorus Albumin Arterial Blood Glucose 143 H 12/28/20 12/28/20 12/28/20 07:49 10:01 10:01 WBC 15.2 H MCV MCH 26 L RDW 19.5 H Plt Count Lymph % (Auto) 1.8 L [place] % (Auto) 8.2 H Lymph # (Auto) 0.3 L [place] # (Auto) 1.2 H Seg Neutrophils % 90.0 H Seg Neuts % (Manual) Lymphocytes % (Manual) Monocytes % (Manual) Seg Neutrophils # 13.6 H Seg Neutrophils # Man Lymphocytes # (Manual) Monocytes # (Manual) ABG pH POC ABG pCO2 POC ABG pO2 ABG Hemoglobin ABG Oxyhemoglobin ABG Sodium ABG Chloride ABG Glucose Carboxyhemoglobin Sodium 133 L Potassium Chloride 94.4 L Carbon Dioxide 31 H BUN 40 H Creatinine 1.6 H D Glucose 122 H POC Glucose 122 H Phosphorus Albumin Arterial Blood Glucose 12/28/20 12:11 WBC MCV MCH RDW Plt Count Lymph % (Auto) [place] % (Auto) Lymph # (Auto) [place] # (Auto) Seg Neutrophils % Seg Neuts % (Manual) Lymphocytes % (Manual) Monocytes % (Manual) Seg Neutrophils # Seg Neutrophils # Man Lymphocytes # (Manual) Monocytes # (Manual) ABG pH 7.184 L POC ABG pCO2 80.7 H POC ABG pO2 76.0 L ABG Hemoglobin 10.3 L ABG Oxyhemoglobin 92.7 L ABG Sodium 134.5 L ABG Chloride 96.0 L ABG Glucose 119 H Carboxyhemoglobin 0.3 L Sodium Potassium Chloride Carbon Dioxide BUN Creatinine Glucose POC Glucose Phosphorus Albumin Arterial Blood Glucose 119 H
--- NOTE | 2020-12-28 16:34 | Progress Note ---
Assessment and Plan 85 YO Female with HTN, DM, presents ED for generalized weakness and not eating and drinking well. In the ER patient found to have hyponatremia hypokalemia dehydration and physical debility. Patient admitted to the medical floor for further evaluation and management. Now developed respiratory failure with aspiration pneumonia. A/P --Acute hypoxic respiratory failure, developed o/n Likely due to aspiration pneumonia, patient placed on BiPAP We will consult pulmonary and transfer the patient to ICU Continue scheduled breathing treatment and empiric antibiotics --Sepsis, likely due to aspiration pneumonia Patient initially admitted with SIRS criteria and infectious work-up initially remained negative Repeat checks x-ray now showing pulmonary infiltrate Consulted ID, continue empiric antibiotics --Aspiration PNA, cont abx, follow clinically --COVID 19 PUI, will order for the test --Physical debility Fall precautions, supportive care. PT eval --Hyponatremia syndrome Likely due to dehydration and lacking oral intake IV fluid resuscitation therapy, BMP, repeat BMP in a.m. to monitor serum sodium levels. -- Hypokalemia 2.8 today with EKG prolonged AK and generalized weakness, cont to replete check phosphorus level -- Hypertension Monitor blood pressure every shift, continue medical management. Resume patient's home meds -- Diabetes mellitus type II Consistent carbohydrate diet, sliding scale insulin therapy, Accu-Chek. 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 The aggregate critical care time was [45] minutes. This time is in addition to time spent performing reported procedures but includes the following: [x] Data Review and interpretation [x] Patient assessment and monitoring of vital signs [x] Documentation [x] Medication orders and management Daily clinical course: 12/26/20; continue IV fluids. Resume home meds, continue consistent carb with sliding scale insulin. Start on nutritional supplement as pt is Having limited oral intake. PT abdirashid, discussed with case planner for hospice placement. 12/27/20; white count remains elevated, no clear source of infection yet. Continue to replete potassium-today K was 2.8. patient spiking fever, will consult ID. 12/28/20; Discussed with patient's daughter and pt did not have covid vaccine yet. family also denies any h/o dementia, will order COVID test. patient o/n placed on BIPAP and cxr showing consolidation. transferred to ICU. Consult CC, ID following. cont gentle hydration. Family wants to keep the patient full code Subjective Date of service: 12/28/20 Interval history: Patient seen and examined. Medical records and medication list reviewed. Patient developed respiratory distress overnight and placed on BiPAP Spiking temp with elevated white count Repeat chest x-ray showed pulmonary infiltrates likely aspiration pneumonia Patient transferred to ICU today Objective - Exam Narrative Exam: GENERAL: elderly white female currently on BiPAP, lethargic, HEENT: Normocephalic. Atraumatic. No conjunctival congestion or icterus. Patient has moist mucous membranes. NECK: Supple. Trachea midline. CHEST/LUNGS: Coarse breath sound bilaterally HEART/CARDIOVASCULAR: Regular in rate and rhythm. S1 and S2 positive. ABDOMEN: Abdomen is soft, nontender. Patient has normal bowel sounds. SKIN: There is no rash. Warm and dry. NEURO: No focal motor deficit. Unable to follow any command MUSCULOSKELETAL: No joint effusion or tenderness. EXTRIMITY: No edema, no cyanosis or clubbing. PSYCH: Unable to assess - Constitutional Vitals: Vital Signs - 12hr 12/28/20 12/28/20 12/28/20 04:48 05:00 05:06 Temperature Pulse Rate 98 H 96 H 99 H Respiratory 41 H Rate Blood Pressure Blood Pressure [Left] O2 Sat by Pulse 97 99 97 Oximetry 12/28/20 12/28/20 12/28/20 05:49 07:24 09:01 Temperature 102.0 F H Pulse Rate 102 H 92 H Respiratory 28 H 24 Rate Blood Pressure 134/71 121/57 Blood Pressure [Left] O2 Sat by Pulse 90 92 Oximetry 12/28/20 12/28/20 12/28/20 10:00 10:39 12:08 Temperature 102 F H Pulse Rate 85 96 H Respiratory 32 H 33 H Rate Blood Pressure 97/48 Blood Pressure 119/51 [Left] O2 Sat by Pulse 94 94 96 Oximetry 12/28/20 15:08 Temperature Pulse Rate 79 Respiratory 30 H Rate Blood Pressure 125/56 Blood Pressure [Left] O2 Sat by Pulse 97 Oximetry - Labs CBC & Chem 7: 12/28/20 10:01 12/28/20 10:01 Labs: Abnormal lab results 12/27/20 12/27/20 12/27/20 Range/Units 13:16 16:42 19:00 WBC (4.5-11.0) K/mm3 MCH (28-32) pg RDW (13.2-15.2) % Lymph % (Auto) (13.4-35.0) % Lassen % (Auto) (0.0-7.3) % Lymph # (Auto) (1.2-5.4) K/mm3 Lassen # (Auto) (0.0-0.8) K/mm3 Seg Neutrophils % (40.0-70.0) % Seg Neutrophils # (1.8-7.7) K/mm3 ABG pH (7.320-7.450) POC ABG pCO2 (32.0-48.0) mmHg POC ABG pO2 (83-108) mmHg ABG Hemoglobin (12.0-17.5) ABG Oxyhemoglobin (94-98) ABG Sodium (136.0-145.0) mmol/L ABG Chloride (98-107) mmol/L ABG Glucose (65-95) mg/dL Carboxyhemoglobin (0.5-1.5) Sodium (137-145) mmol/L Chloride (98-107) mmol/L Carbon Dioxide (22-30) mmol/L BUN (7-17) mg/dL Creatinine (0.6-1.2) mg/dL Glucose (65-100) mg/dL POC Glucose 165 H 124 H 141 H (70-105) mg/dL C-Reactive Protein (0.00-1.30) mg/dL Arterial Blood Glucose (65-95) mg/dL 12/27/20 12/27/20 12/28/20 Range/Units 19:21 21:58 07:49 WBC (4.5-11.0) K/mm3 MCH (28-32) pg RDW (13.2-15.2) % Lymph % (Auto) (13.4-35.0) % Lassen % (Auto) (0.0-7.3) % Lymph # (Auto) (1.2-5.4) K/mm3 Lassen # (Auto) (0.0-0.8) K/mm3 Seg Neutrophils % (40.0-70.0) % Seg Neutrophils # (1.8-7.7) K/mm3 ABG pH (7.320-7.450) POC ABG pCO2 53.3 H (32.0-48.0) mmHg POC ABG pO2 51.3 L (83-108) mmHg ABG Hemoglobin (12.0-17.5) ABG Oxyhemoglobin 86.9 L (94-98) ABG Sodium (136.0-145.0) mmol/L ABG Chloride 91.0 L (98-107) mmol/L ABG Glucose 143 H (65-95) mg/dL Carboxyhemoglobin (0.5-1.5) Sodium (137-145) mmol/L Chloride (98-107) mmol/L Carbon Dioxide (22-30) mmol/L BUN (7-17) mg/dL Creatinine (0.6-1.2) mg/dL Glucose (65-100) mg/dL POC Glucose 137 H 122 H (70-105) mg/dL C-Reactive Protein (0.00-1.30) mg/dL Arterial Blood Glucose 143 H (65-95) mg/dL 12/28/20 12/28/20 12/28/20 Range/Units 10:01 10:01 12:11 WBC 15.2 H (4.5-11.0) K/mm3 MCH 26 L (28-32) pg RDW 19.5 H (13.2-15.2) % Lymph % (Auto) 1.8 L (13.4-35.0) % Lassen % (Auto) 8.2 H (0.0-7.3) % Lymph # (Auto) 0.3 L (1.2-5.4) K/mm3 Lassen # (Auto) 1.2 H (0.0-0.8) K/mm3 Seg Neutrophils % 90.0 H (40.0-70.0) % Seg Neutrophils # 13.6 H (1.8-7.7) K/mm3 ABG pH 7.184 L (7.320-7.450) POC ABG pCO2 80.7 H (32.0-48.0) mmHg POC ABG pO2 76.0 L (83-108) mmHg ABG Hemoglobin 10.3 L (12.0-17.5) ABG Oxyhemoglobin 92.7 L (94-98) ABG Sodium 134.5 L (136.0-145.0) mmol/L ABG Chloride 96.0 L (98-107) mmol/L ABG Glucose 119 H (65-95) mg/dL Carboxyhemoglobin 0.3 L (0.5-1.5) Sodium 133 L (137-145) mmol/L Chloride 94.4 L (98-107) mmol/L Carbon Dioxide 31 H (22-30) mmol/L BUN 40 H (7-17) mg/dL Creatinine 1.6 H D (0.6-1.2) mg/dL Glucose 122 H (65-100) mg/dL POC Glucose (70-105) mg/dL C-Reactive Protein (0.00-1.30) mg/dL Arterial Blood Glucose 119 H (65-95) mg/dL 12/28/20 12/28/20 Range/Units 12:15 13:15 WBC (4.5-11.0) K/mm3 MCH (28-32) pg RDW (13.2-15.2) % Lymph % (Auto) (13.4-35.0) % Lassen % (Auto) (0.0-7.3) % Lymph # (Auto) (1.2-5.4) K/mm3 Lassen # (Auto) (0.0-0.8) K/mm3 Seg Neutrophils % (40.0-70.0) % Seg Neutrophils # (1.8-7.7) K/mm3 ABG pH (7.320-7.450) POC ABG pCO2 (32.0-48.0) mmHg POC ABG pO2 (83-108) mmHg ABG Hemoglobin (12.0-17.5) ABG Oxyhemoglobin (94-98) ABG Sodium (136.0-145.0) mmol/L ABG Chloride (98-107) mmol/L ABG Glucose (65-95) mg/dL Carboxyhemoglobin (0.5-1.5) Sodium (137-145) mmol/L Chloride (98-107) mmol/L Carbon Dioxide (22-30) mmol/L BUN (7-17) mg/dL Creatinine (0.6-1.2) mg/dL Glucose (65-100) mg/dL POC Glucose 123 H (70-105) mg/dL C-Reactive Protein 25.50 H (0.00-1.30) mg/dL Arterial Blood Glucose (65-95) mg/dL
[2020-12-28] MEDS: HEPARIN 5,000 UNIT/1 ML VIAL SUB-Q SCH (18:01)
[2020-12-28] MEDS: D5W/0.9% NACL 1,000 ML IV SCH (20:05)
--- NOTE | 2020-12-28 22:49 | Consultation ---
DATE OF CONSULTATION: 12/28/2020 PULMONARY CRITICAL CARE CONSULT CONSULTING PHYSICIAN: Dr. Burks. REASON FOR CONSULTATION: Altered mental status, acute hypoxemic respiratory failure. CHIEF COMPLAINT AND HISTORY OF PRESENT ILLNESS: The patient is an 85-year-old obese female with past medical history significant amongst other things for vascular dementia with so-called behavioral disturbance came into the Emergency Room on the of this month is about 3 days ago complaining of feeling weak. She was described as having diminished cognition in the ER. Per her daughter, it had been going on for about 2 weeks with worsening symptoms in the preceding few days. She had had reduced oral intake and was just unable to perform activities of daily living. In the ER, she was diagnosed with a urinary tract infection complicated by sepsis and electrolyte derangements. She was evaluated for COVID-19, admitted to the medical floor. It seems that she had been managing her appointment medical followup until earlier today she was described as being found with altered mental status, short of breath. She was spiking fevers and she was transferred to the Intensive Care Unit for close observation after she had been put on noninvasive ventilation therapy when I stopped by to see her, she was resting in bed. She was riding the set rate on the noninvasive ventilation. She had been put on the AVAPS mode with a target tidal volume at the time, I believe of about 400 mL. She was getting about 12 liters minute ventilation. She was on 100% oxygen, but her O2 sats were 100%. I do not have any history of vomiting or overt aspiration. The above is as much of the history of presentation as I have. PAST MEDICAL HISTORY: According to the records, significant for hypertension, diabetes, vascular dementia. She is obese. PAST SURGICAL HISTORY: She has had surgery on her kidney in the past. Nature of the surgery is unknown. MEDICATIONS: She was on at the time I stopped by to see according to the medication administration record included the following: Tylenol 650 mg p.o. q. 4 hours p.r.n. mild pain or fevers, albuterol 2.5 mg nebulized q. 4 hours p.r.n. shortness of breath, amlodipine 10 mg p.o. daily, atenolol 50 mg p.o. daily, Rocephin 2 grams IV daily, D5 NS at 42 mL per hour, Pepcid 20 mg p.o. daily, Prozac 20 mg p.o. daily, Lasix, had a one-time dose, Dilaudid 0.25 mg IV every 4 hours p.r.n. moderate pain, insulin via sliding scale, Imdur 30 mg p.o. daily, Zofran 4 mg IV q. 8 hours p.r.n. nausea and vomiting. She was given 30 millimoles of potassium phosphate and vancomycin 1.5 grams IV x1. ALLERGIES: PENICILLIN. NATURE OF THIS ALLERGY IS UNKNOWN. DIET: Obese lady, acute weight loss or gain history is unknown. FAMILY AND SOCIAL HISTORY: Apparently lives in the community with family. They denied alcohol, tobacco, or illicit drug use or abuse. There is a family history of diabetes and hypertension. REVIEW OF SYSTEMS: Unobtainable secondary to patient's medical and mental condition. Since she has been here, no reported gross hematochezia or melena, no gross hematuria or dysuria. No hematemesis, no hemoptysis, no witnessed seizures. Review of systems otherwise unobtainable or as in the body of the history above. PHYSICAL EXAMINATION: VITAL SIGNS: At presentation in the Emergency Room, vital signs, she was afebrile, temperature 98.0 degrees Fahrenheit, pulse of 76, respiratory rate of 18, blood pressure 130/75, O2 sats were 92%, inspired oxygen concentration was not recorded. She had a fever of 102.0 Fahrenheit today when I saw her O2 sats 100% that was on AVAPS noninvasive ventilation with an FIO2 of 100%, sats 100%. GENERAL: Elderly looking, obese female. Normocephalic, atraumatic. Resting in bed right in the set rate on the noninvasive ventilator without significant ventilator dyssynchrony. HEENT: Anicteric, No conjunctival erythema. Oropharynx appeared moist. She had a full face mask over her face. NECK: No gross jugular venous distention, no thyromegaly. Grossly, there were no palpable lymph nodes in the supraclavicular or submandibular lymph node chains. LUNGS: Auscultation of both lung campa significant for diminished bibasilar air entry, bibasilar inspiratory rales. No wheezing. HEART: Sounds 1 and 2 are heard at the time of my evaluation, regular rate and rhythm without overt rubs or murmurs. ABDOMEN: Soft, full, protuberant. Bowel sounds are positive, nontender, no palpable hepatosplenomegaly. EXTREMITIES: Without overt digital clubbing or cyanosis, no pedal edema. Pedal pulses are 2+ bilaterally. NEUROLOGIC: Pupils are equal, round, about 4 mm, reactive to light. Extraocular muscle movements could not be assessed. She did have some withdrawal movements to all extremities. SKIN: Normal turgor in the areas examined without overt cellulitis or rash. Please see the wound care nurses' notes for full description of the skin. PSYCHIATRIC: Mood and affect could not be assessed. LABORATORY DATA: From my review are as follows: Admission white cell count 20,100, hemoglobin 11.7, hematocrit 35.1, platelet count at that time was 473. 2% band forms on the manual differential. Serum sodium was 122, potassium 2.7, chloride 80, bicarbonate 21, BUN 35, creatinine 0.9, glucose 154. Urinalysis negative for nitrites and leukocyte esterase. White count today is 15,200, platelet count 399. Her arterial blood gases earlier showed a pH of 7.18, pCO2 of 81, pO2 of 76 that was on 100%, I believe nonrebreather. BUN is 40, creatinine is 1.6 today. Two sets of blood cultures are no growth to date. Chest x-ray today documents new bibasilar predominant infiltrates that are new since admission. Small bilateral pleural effusions. The film is slightly rotated to the right appears to be some element of interstitial edema also. Overall, consistent with an aspiration event. ASSESSMENT: 1. Acute hypoxemic respiratory failure on noninvasive ventilation. 2. Severe sepsis, presumably due to bilateral pneumonia. 3. Bilateral pneumonia, aspiration. 4. Possible urinary tract infections. 5. History of diabetes. 6. Acute hypercapnic respiratory failure. 7. Acute kidney injury. 8. Acute toxic metabolic encephalopathy. PLAN: We will keep her in the intensive care unit. Watch her closely. She is tolerating the bilevel positive airway pressure ventilation, the AVAPS ventilation therapy well, good minute ventilation. I have increased the set tidal volume to about 450 mL. We will repeat an arterial blood gas in a couple of hours and see which direction she is going. I have dropped the FiO2 to 80 percent. Oxygen will be weaned to keep sats greater than or equal to about 92%. Strict aspiration precautions will be maintained. She is on the precautions for possible COVID-19 infection. COVID test has been ordered and she will be in contact and airborne isolation in the short time. While critically ill, we will target blood glucose for 140-180 mg/dL. We will watch her electrolytes and correct as necessary. Consideration will be given for empiric Lasix depending on how she progresses. For now, she may end up needing vasopressor support if she becomes hypotensive as I do feel there is some element of pulmonary edema, but it depends on gas will see which direction she is going. Infectious Disease consultation will be at the behest of the attending physician. We will continue broad spectrum anti-infective therapy coordinating covering healthcare-associated pneumonia. She has received vancomycin and Rocephin. I will defer to the infectious disease physician as to escalating or deescalating anti-infective therapy. She is appropriately on GI prophylaxis. She will be placed on DVT prophylaxis with heparin. Flu and pneumonia vaccination will be addressed per protocol. Thank you very much for the consult. We will follow along and make further recommendations as picture progresses/becomes clearer. She is critically ill on life-sustaining interventions including noninvasive continuous ventilation at high risk of from cardiopulmonary system decompensation. At this time was spent about 35-40 minutes of critical care time without overlap and excluding any procedural time that may be necessary. TID: [id number] RECEIPT: [id number] BISHOP/BELIA COTTER
[2020-12-29] MEDS: HEPARIN 5,000 UNIT/1 ML VIAL SUB-Q SCH (05:37)
[2020-12-29] MEDS: D5W/0.9% NACL 1,000 ML IV SCH ×2 (06:44→21:25)
--- NOTE | 2020-12-29 12:26 | Event Note ---
Date: 12/29/20 Patient remains on Bipap unresponsive Cannot do CT head as she is on Bipap Discussed with daughter again this am and she wanted to change the code status to DNR and requested inpt hospice Hospice consult placed and changed code to DNR patient also positive for COVID 19, ID following
[2020-12-29] MEDS: cefTRIAXone/NS 2 GM/100 ML 2 GM/100 ML BAG IV SCH (12:39)
[2020-12-29] MEDS: INSULIN REGULAR, HUMAN 100 UNITS/1 ML SUB-Q SCH ×2 (12:40→22:00)
[2020-12-29] MEDS: amLODIPine 10 MG TAB PO SCH (12:40)
[2020-12-29] MEDS: FLUoxetine 20 MG CAP PO SCH (12:41)
[2020-12-29] MEDS: atenoloL 50 MG TAB PO SCH (12:41)
[2020-12-29] MEDS: FAMOTIDINE 10 MG TAB PO SCH (12:41)
--- NOTE | 2020-12-29 13:50 | Progress Note ---
Assessment and Plan Cultures: 12/25/2020 blood culture: No growth 12/26/2020 blood culture: No growth A/P: 80-year-old female with hypertension, dementia, diabetes mellitus, admitted to the hospital with weakness: #Sepsis, likely secondary to bilateral probably aspiration pneumonia as noted on subsequent chest x-ray. UA did not show any significant pyuria. #Acute hypoxic respiratory failure: on BiPAP #Acute encephalopathy/underlying vascular dementia, also electrolyte abnormalities Recs: Ceftriaxone switched to IV Cefepime. Continue IV vancomycin f/u MRSA nasal PCR, COVID-19 PCR agree with goals of care discussion and possible hospice Hilaria Glover MD, FACP [facility] O: [phone] F: [phone] Subjective Date of service: 12/29/20 Interval history: Continues to spike fever. Remains on BiPAP. COVID-19 PCR is not back. Objective - Exam Narrative Exam: Physical Exam: Constitutional:unresponsive, on BiPAP Head, Ears, Nose: Normocephalic, atraumatic. External ears, nose normal Eyes: Conjunctivae/corneas clear. No icterus. No ptosis. Neck: Supple, no meningeal signs Oral: BiPAP Cardiovascular: S1, S2 normal. Respiratory: b/l rhonchi + GI: Soft, non-tender; bowel sounds normal. No peritoneal signs Musculoskeletal: No pedal edema, no cyanosis. Skin: No rash or abscess Hem/Lymphatic: No palpable cervical or supraclavicular nodes. No lymphangitis Psych: no agitation Neurological: unresponsive - Constitutional Vitals: Vital Signs Temp Pulse Resp BP Pulse Ox 103.1 F H 101 H 39 H 151/62 97 12/29/20 12:00 12/29/20 11:11 12/29/20 11:11 12/29/20 11:11 12/29/20 11:11 Temperature -Last 24 Hours Temperature 103.1 F Temperature 102.9 F Temperature 97.7 F Temperature 98.8 F Temperature 99.8 F - Labs CBC & Chem 7: 12/28/20 10:01 12/28/20 10:01 Labs: Abnormal lab results 12/28/20 12/28/20 12/28/20 Range/Units 12:15 13:15 18:09 POC ABG pO2 57.8 L (83-108) mmHg ABG Hemoglobin 10.2 L (12.0-17.5) ABG Oxyhemoglobin 90.4 L (94-98) ABG Sodium 134.4 L (136.0-145.0) mmol/L ABG Glucose 98 H (65-95) mg/dL Carboxyhemoglobin 0.4 L (0.5-1.5) POC Glucose 123 H (70-105) mg/dL C-Reactive Protein 25.50 H (0.00-1.30) mg/dL Arterial Blood Glucose 98 H (65-95) mg/dL
--- NOTE | 2020-12-29 16:29 | Progress Note ---
Assessment and Plan 85 YO Female with HTN, DM, presents ED for generalized weakness and not eating and drinking well. In the ER patient found to have hyponatremia hypokalemia dehydration and physical debility. Patient admitted to the medical floor for further evaluation and management. Now developed respiratory failure with aspiration pneumonia. A/P --Acute hypoxic respiratory failure, not POA Likely due to COVID 19 and aspiration pneumonia, patient placed on BiPAP consulted pulmonary and ID Continue scheduled breathing treatment and empiric antibiotics follow ID recommendation --Sepsis, likely due to covid 19 and aspiration pneumonia Patient initially admitted with SIRS criteria and infectious work-up initially was negative Repeat checks x-ray now showing pulmonary infiltrate Consulted ID, continue empiric antibiotics, patient is tested positive for COVID --COVID 19 PNA, consulted ID , follow protocol --aspiration PNA, cont iv abx --Physical debility Fall precautions, supportive care. PT eval --Hyponatremia syndrome Likely due to dehydration and lacking oral intake IV fluid resuscitation therapy, BMP, repeat BMP in a.m. to monitor serum sodium levels. -- Hypokalemia 2.8 today with EKG prolonged HI and generalized weakness, cont to replete check phosphorus level -- Hypertension Monitor blood pressure every shift, continue medical management. Resume patient's home meds -- Diabetes mellitus type II Consistent carbohydrate diet, sliding scale insulin therapy, Accu-Chek. 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 The aggregate critical care time was [45] minutes. This time is in addition to time spent performing reported procedures but includes the following: [x] Data Review and interpretation [x] Patient assessment and monitoring of vital signs [x] Documentation [x] Medication orders and management Daily clinical course: 12/26/20; continue IV fluids. Resume home meds, continue consistent carb with sliding scale insulin. Start on nutritional supplement as pt is Having limited oral intake. PT eval, discussed with dependency case manager for hospice placement. 12/27/20; white count remains elevated, no clear source of infection yet. Continue to replete potassium-today K was 2.8. patient spiking fever, will consult ID. 12/28/20; Discussed with patient's daughter and pt did not have covid vaccine yet. family also denies any h/o dementia, will order COVID test. patient o/n placed on BIPAP and cxr showing consolidation. transferred to ICU. Consult CC, ID following. cont gentle hydration. Family wants to keep the patient full code 12/29/20; Positive for COVID, consult ID. family wants hospice and DNR, But they also want to cont with treatment for COVID. Start on steroid, will order remdesivir if Cr level improves. Subjective Date of service: 12/29/20 Interval history: Patient seen and examined. Medical records and medication list reviewed. Patient remains on BiPAP, continues to be lethargic Spiking temp with elevated white count Repeat chest x-ray showed pulmonary infiltrates, patient also positive for COVID-19 Discussed with family and requesting DNR Objective - Exam Narrative Exam: GENERAL: elderly white female currently on BiPAP, lethargic, HEENT: Normocephalic. Atraumatic. No conjunctival congestion or icterus. Patient has moist mucous membranes. NECK: Supple. Trachea midline. CHEST/LUNGS: Coarse breath sound bilaterally HEART/CARDIOVASCULAR: Regular in rate and rhythm. S1 and S2 positive. ABDOMEN: Abdomen is soft, nontender. Patient has normal bowel sounds. SKIN: There is no rash. Warm and dry. NEURO: No focal motor deficit. Unable to follow any command MUSCULOSKELETAL: No joint effusion or tenderness. EXTRIMITY: No edema, no cyanosis or clubbing. PSYCH: Unable to assess - Constitutional Vitals: Vital Signs - 12hr 12/29/20 12/29/20 12/29/20 06:00 07:00 07:54 Temperature 102.9 F H Pulse Rate 103 H Respiratory 30 H 37 H Rate Blood Pressure 152/73 O2 Sat by Pulse 94 90 Oximetry 12/29/20 12/29/20 12/29/20 07:57 11:11 12:00 Temperature 103.1 F H Pulse Rate 101 H Respiratory 39 H Rate Blood Pressure 151/62 O2 Sat by Pulse 87 97 Oximetry 12/29/20 15:13 Temperature Pulse Rate 100 H Respiratory 40 H Rate Blood Pressure 147/91 O2 Sat by Pulse 96 Oximetry - Labs CBC & Chem 7: 12/30/20 07:38 06/14/21 07:38 Labs: Abnormal lab results 12/28/20 12/29/20 Range/Units 18:09 09:25 POC ABG pO2 57.8 L (83-108) mmHg ABG Hemoglobin 10.2 L (12.0-17.5) ABG Oxyhemoglobin 90.4 L (94-98) ABG Sodium 134.4 L (136.0-145.0) mmol/L ABG Glucose 98 H (65-95) mg/dL Carboxyhemoglobin 0.4 L (0.5-1.5) Arterial Blood Glucose 98 H (65-95) mg/dL Coronavirus (PCR) Positive A (Negative)
[2020-12-29] MEDS ORDERED: SIMPLE SYRUP 15 ML FEEDTUBE PRN ×2 (16:34)
[2020-12-29] MEDS ORDERED: LIPASE 10,500/PROTEASE 25,000/AMYLASE 43,750 (UNITS) DR CAP FEEDTUBE PRN (16:34)
[2020-12-29] MEDS ORDERED: SODIUM BICARBONATE 325 MG TAB FEEDTUBE PRN (16:34)
--- NOTE | 2020-12-29 18:37 | Progress Note ---
Assessment and Plan Acute hypercapnic respiratory failure Acute kidney injury Acute toxic metabolic encephalopathy. Acute hypoxemic respiratory failure on noninvasive ventilation Severe sepsis, presumably due to bilateral pneumonia Bilateral pneumonia, aspiration Possible urinary tract infections History of diabetes - continue on RTC NIV for now (await families final decision while transitioning to [facility] only BIPAP as tolerated) - get repeat CXR in am - continue care as below otherwise; - continue aspiration precautions (HOB > 40 degrees) - continue lung protective strategies - continue bronchodilators with pulmonary hygiene per RT - wean per pulmonary driven protocols otherwise - avoid nephrotoxins, renally dose all medications - continue to avoid benzodiazepine's, reduce the possibility of delirium - complete AB's per ID rec's - prn analgesia per CPOT score - Maintenance of sleep-wake cycle, avoid delirium - continue enteral nutritional support at goal rate as tolerated - G.I. & VTE prophylaxis - PT/OT/ROM exercises - continue mobility protocols for pressure ulcer prophylaxis - Monitor hemodynamics closely - continue other care per attending / other consultants - discharge planning ongoing concurrently COVID SPECIFIC INTERVENTIONS - Remdesivir as per ID/Pulmonary developed protocols - continue systemic steroids for severe COVID-19 infection empirically - follow repeat COVID tests results - zinc and vitamin C supplementation - Monitor inflammatory markers per facility protocol - ferritin, Ddimer, CRP - therapeutic anticoagulation per system Protocol based on d-dimer and clinical considerations - Continue contact and airborne isolation .... Re-evaluate in am & prn CONDITION: CRITICAL PROGNOSIS: GUARDED CODE STATUS: FULL CODE The high probability of a clinically significant, sudden or life-threatening deterioration of the [respiratory, cardiovascular, GI & neurologic] system(s) re quired my full and direct attention, intervention and personal management. The aggregate critical care time was [34] minutes without overlap. Time includes spent on; [x] Data Review and interpretation [x] Patient assessment and monitoring of vital signs [x] Documentation [x] Medication orders and management Subjective Date of service: 12/29/20 Principal diagnosis: Ac. hypercapnic and hypoxemic resp failure; MOUNA; Severe sepsis; COVID-19 Interval history: Patient is seen today for: Acute hypercapnic and hypoxemic respiratory failure; Acute kidney injury; Acute toxic metabolic encephalopathy; Severe sepsis; Bilateral pneumonia; COVID-19 infection Seen and examined at bedside; 24hour events reviewed; nursing and respiratory care staff consulted; no adverse overnight events reported to me; resting in bed; remains BIPAP dependent; AMS is persistent; no emesis or overt aspiration; remains DNR but family wants continued aggressive care; no high grade fevers Objective Vital Signs - 12hr 12/29/20 12/29/20 12/29/20 07:00 07:54 07:57 Temperature 102.9 F H Pulse Rate 103 H Respiratory 37 H Rate Blood Pressure 152/73 O2 Sat by Pulse 90 87 Oximetry 12/29/20 12/29/20 12/29/20 11:11 12:00 15:13 Temperature 103.1 F H Pulse Rate 101 H 100 H Respiratory 39 H 40 H Rate Blood Pressure 151/62 147/91 O2 Sat by Pulse 97 96 Oximetry Constitutional: appears uncomfortable, other (elderly female with mildly increased respiratory effort at rest) Eyes: non-icteric ENT: oropharynx moist, other (BIPAP FFM) Neck: supple, no lymphadenopathy, no JVD Effort: mildly labored Ascultation: Bilateral: diminished breath sounds, rhonchi Percussion: Bilateral: not dull Cardiovascular: regular rate and rhythm Gastrointestinal: normoactive bowel sounds, soft, non-tender, non-distended (protuberant) Integumentary: normal Extremities: no cyanosis, no edema, pink and warm, pulses normal Neurologic: non-focal exam (grossly), unable to assess Psychiatric: other (unable to assess re: AMS) CBC and BMP: 12/30/20 07:38 12/30/20 07:38 ABG, PT/INR, D-dimer: ABG ABG pH 7.355 (7.320-7.450) 12/28/20 18:09 POC ABG pCO2 46.8 mmHg (32.0-48.0) 12/28/20 18:09 POC ABG pO2 57.8 mmHg (83-108) L 12/28/20 18:09 POC ABG HCO3 25.5 12/28/20 18:09 ABG O2 Saturation 91.0 (0-100) 12/28/20 18:09 Abnormal lab findings: Abnormal Labs 12/25/20 12/25/20 12/26/20 11:35 11:35 15:02 WBC 20.1 H MCV 77 L MCH 26 L RDW 19.1 H Plt Count 473 H Lymph % (Auto) Sierra % (Auto) Lymph # (Auto) Sierra # (Auto) Seg Neutrophils % Seg Neuts % (Manual) 89.0 H Lymphocytes % (Manual) 5.0 L Monocytes % (Manual) Seg Neutrophils # Seg Neutrophils # Man 17.9 H Lymphocytes # (Manual) 1.0 L Monocytes # (Manual) ABG pH POC ABG pCO2 POC ABG pO2 ABG Hemoglobin ABG Oxyhemoglobin ABG Sodium ABG Chloride ABG Glucose Carboxyhemoglobin Sodium 122 L Potassium 2.7 L* Chloride 80.2 L Carbon Dioxide 21 L BUN 35 H Creatinine Glucose 154 H POC Glucose 161 H Phosphorus C-Reactive Protein Albumin 3.5 L Arterial Blood Glucose Coronavirus (PCR) 12/26/20 12/26/20 12/26/20 15:07 15:07 21:19 WBC 17.9 H MCV 78 L MCH 26 L RDW 19.3 H Plt Count Lymph % (Auto) Sierra % (Auto) Lymph # (Auto) Sierra # (Auto) Seg Neutrophils % Seg Neuts % (Manual) Lymphocytes % (Manual) Monocytes % (Manual) Seg Neutrophils # Seg Neutrophils # Man Lymphocytes # (Manual) Monocytes # (Manual) ABG pH POC ABG pCO2 POC ABG pO2 ABG Hemoglobin ABG Oxyhemoglobin ABG Sodium ABG Chloride ABG Glucose Carboxyhemoglobin Sodium 122 L Potassium 2.7 L* Chloride 82.7 L Carbon Dioxide BUN 19 H Creatinine Glucose 138 H POC Glucose 142 H Phosphorus C-Reactive Protein Albumin Arterial Blood Glucose Coronavirus (PCR) 12/27/20 12/27/20 12/27/20 05:10 05:10 06:52 WBC 21.7 H MCV 78 L MCH 26 L RDW 19.2 H Plt Count Lymph % (Auto) Sierra % (Auto) Lymph # (Auto) Sierra # (Auto) Seg Neutrophils % Seg Neuts % (Manual) 92.0 H Lymphocytes % (Manual) Monocytes % (Manual) 8.0 H Seg Neutrophils # Seg Neutrophils # Man 20.0 H Lymphocytes # (Manual) 0.0 L Monocytes # (Manual) 1.7 H ABG pH POC ABG pCO2 POC ABG pO2 ABG Hemoglobin ABG Oxyhemoglobin ABG Sodium ABG Chloride ABG Glucose Carboxyhemoglobin Sodium 128 L Potassium 2.8 L* Chloride 86.3 L Carbon Dioxide BUN 21 H Creatinine Glucose 147 H POC Glucose Phosphorus 1.50 L C-Reactive Protein Albumin Arterial Blood Glucose Coronavirus (PCR) 12/27/20 12/27/20 12/27/20 07:33 13:16 16:42 WBC MCV MCH RDW Plt Count Lymph % (Auto) Sierra % (Auto) Lymph # (Auto) Sierra # (Auto) Seg Neutrophils % Seg Neuts % (Manual) Lymphocytes % (Manual) Monocytes % (Manual) Seg Neutrophils # Seg Neutrophils # Man Lymphocytes # (Manual) Monocytes # (Manual) ABG pH POC ABG pCO2 POC ABG pO2 ABG Hemoglobin ABG Oxyhemoglobin ABG Sodium ABG Chloride ABG Glucose Carboxyhemoglobin Sodium Potassium Chloride Carbon Dioxide BUN Creatinine Glucose POC Glucose 163 H 165 H 124 H Phosphorus C-Reactive Protein Albumin Arterial Blood Glucose Coronavirus (PCR) 12/27/20 12/27/20 12/27/20 19:00 19:21 21:58 WBC MCV MCH RDW Plt Count Lymph % (Auto) Sierra % (Auto) Lymph # (Auto) Sierra # (Auto) Seg Neutrophils % Seg Neuts % (Manual) Lymphocytes % (Manual) Monocytes % (Manual) Seg Neutrophils # Seg Neutrophils # Man Lymphocytes # (Manual) Monocytes # (Manual) ABG pH POC ABG pCO2 53.3 H POC ABG pO2 51.3 L ABG Hemoglobin ABG Oxyhemoglobin 86.9 L ABG Sodium ABG Chloride 91.0 L ABG Glucose 143 H Carboxyhemoglobin Sodium Potassium Chloride Carbon Dioxide BUN Creatinine Glucose POC Glucose 141 H 137 H Phosphorus C-Reactive Protein Albumin Arterial Blood Glucose 143 H Coronavirus (PCR) 12/28/20 12/28/20 12/28/20 07:49 10:01 10:01 WBC 15.2 H MCV MCH 26 L RDW 19.5 H Plt Count Lymph % (Auto) 1.8 L Sierra % (Auto) 8.2 H Lymph # (Auto) 0.3 L Sierra # (Auto) 1.2 H Seg Neutrophils % 90.0 H Seg Neuts % (Manual) Lymphocytes % (Manual) Monocytes % (Manual) Seg Neutrophils # 13.6 H Seg Neutrophils # Man Lymphocytes # (Manual) Monocytes # (Manual) ABG pH POC ABG pCO2 POC ABG pO2 ABG Hemoglobin ABG Oxyhemoglobin ABG Sodium ABG Chloride ABG Glucose Carboxyhemoglobin Sodium 133 L Potassium Chloride 94.4 L Carbon Dioxide 31 H BUN 40 H Creatinine 1.6 H D Glucose 122 H POC Glucose 122 H Phosphorus C-Reactive Protein Albumin Arterial Blood Glucose Coronavirus (PCR) 12/28/20 12/28/20 12/28/20 12:11 12:15 13:15 WBC MCV MCH RDW Plt Count Lymph % (Auto) Sierra % (Auto) Lymph # (Auto) Sierra # (Auto) Seg Neutrophils % Seg Neuts % (Manual) Lymphocytes % (Manual) Monocytes % (Manual) Seg Neutrophils # Seg Neutrophils # Man Lymphocytes # (Manual) Monocytes # (Manual) ABG pH 7.184 L POC ABG pCO2 80.7 H POC ABG pO2 76.0 L ABG Hemoglobin 10.3 L ABG Oxyhemoglobin 92.7 L ABG Sodium 134.5 L ABG Chloride 96.0 L ABG Glucose 119 H Carboxyhemoglobin 0.3 L Sodium Potassium Chloride Carbon Dioxide BUN Creatinine Glucose POC Glucose 123 H Phosphorus C-Reactive Protein 25.50 H Albumin Arterial Blood Glucose 119 H Coronavirus (PCR) 12/28/20 12/29/20 18:09 09:25 WBC MCV MCH RDW Plt Count Lymph % (Auto) Sierra % (Auto) Lymph # (Auto) Sierra # (Auto) Seg Neutrophils % Seg Neuts % (Manual) Lymphocytes % (Manual) Monocytes % (Manual) Seg Neutrophils # Seg Neutrophils # Man Lymphocytes # (Manual) Monocytes # (Manual) ABG pH POC ABG pCO2 POC ABG pO2 57.8 L ABG Hemoglobin 10.2 L ABG Oxyhemoglobin 90.4 L ABG Sodium 134.4 L ABG Chloride ABG Glucose 98 H Carboxyhemoglobin 0.4 L Sodium Potassium Chloride Carbon Dioxide BUN Creatinine Glucose POC Glucose Phosphorus C-Reactive Protein Albumin Arterial Blood Glucose 98 H Coronavirus (PCR) Positive A Chest x-ray: other (none today) Allied health notes reviewed: nursing
--- NOTE | 2020-12-29 18:59 | XRay Report ---
ABDOMEN 1 VIEW INDICATION / CLINICAL INFORMATION: Dobhoff tube placement. COMPARISON: Chest radiograph 12/27/2020 FINDINGS: TUBES / LINES: A Dobbhoff tube is in place with tip terminating in the gastric body. BOWEL GAS PATTERN: Nonspecific, nonobstructive bowel gas pattern. FREE AIR / EXTRALUMINAL GAS: None seen. ADDITIONAL FINDINGS: No significant additional findings. IMPRESSION: 1. Dobbhoff tube with tip terminating in the gastric body. This could be advanced by approximately 10 to 15 cm if desired to be in a postpyloric position. Signer Name: Niru Rodgers MD Signed: 12/29/2020 6:55 PM Workstation Name: [id number]
[2020-12-29 19:42] LABS: C-Reactive Protein 33.6 mg/dL (0.00-1.30)
[2020-12-30] MEDS: CEFEPIME/NS 1 GM/100 ML 1 GM/100 ML BAG IV SCH ×2 (07:00→07:05)
[2020-12-30] MEDS: HEPARIN 5,000 UNIT/1 ML VIAL SUB-Q SCH ×2 (07:04→17:35)
[2020-12-30] MEDS: INSULIN REGULAR, HUMAN 100 UNITS/1 ML SUB-Q SCH ×3 (08:00→17:33)
[2020-12-30 08:07] LABS: Basophils % (Auto) 0.2 % (0.0-1.8); Eosinophils % (Auto) 0.1 % (0.0-4.3); Hematocrit 29.9 % (30.3-42.9); Hemoglobin 9.8 gm/dl (10.1-14.3); Lymphocytes # (Auto) 0.3 K/mm3 (1.2-5.4); Lymphocytes % (Auto) 3.5 % (13.4-35.0); Mean Corpuscular HGB Conc 33 % (30-34); Mean Corpuscular Volume 82 fl (79-97); Monocytes % (Auto) 10.7 % (0.0-7.3); Platelet Count 253 K/mm3 (140-440); Red Blood Count 3.64 M/mm3 (3.65-5.03)
[2020-12-30 08:12] LABS: Red Cell Distribution Width 20.3 % (13.2-15.2)
[2020-12-30 08:29] LABS: Calcium 9.2 mg/dL (8.4-10.2)
[2020-12-30] MEDS ORDERED: SODIUM BICARB 8.4% 50 MEQ/50 ML SYRINGE IV NR (08:49)
[2020-12-30] MEDS ORDERED: SODIUM POLYSTYRENE 15 GM/60 ML ORAL LIQD PO NR (08:49)
[2020-12-30] MEDS ORDERED: CALCIUM GLUCONATE 1,000 MG in SODIUM CHLORIDE 0.9% 100 ML IV NR (09:00)
[2020-12-30] MEDS: atenoloL 50 MG TAB PO SCH (10:21)
[2020-12-30] MEDS: FAMOTIDINE 10 MG TAB PO SCH (10:22)
[2020-12-30] MEDS: FLUoxetine 20 MG CAP PO SCH (10:22)
[2020-12-30] MEDS: amLODIPine 10 MG TAB PO SCH (10:22)
[2020-12-30] MEDS: VANCOMYCIN 1,250 MG in SODIUM CHLORIDE 0.9% 250ML 250 ML IV SCH (10:25)
[2020-12-30] MEDS ORDERED: CALCIUM GLUCONATE 1,000 MG in SODIUM CHLORIDE 0.9% 100 ML IV ONE (11:00)
[2020-12-30] MEDS ORDERED: SODIUM BICARB 8.4% 50 MEQ/50 ML SYRINGE IV ONE (11:00)
[2020-12-30] MEDS ORDERED: REMDESIVIR 200 MG in SODIUM CHLORIDE 0.9% 250ML 250 ML IV ONE (11:30)
[2020-12-30] MEDS: SODIUM CHLORIDE 0.9% 50 ML IVPB IV SCH (11:43)
--- NOTE | 2020-12-30 13:37 | Progress Note ---
Assessment and Plan Cultures: 12/25/2020 blood culture: No growth 12/26/2020 blood culture: No growth COVID PCR: positive A/P: 80-year-old female with hypertension, dementia, diabetes mellitus, admitted to the hospital with weakness: #Sepsis, likely secondary to bilateral probably aspiration pneumonia as noted on subsequent chest x-ray. UA did not show any significant pyuria. #Acute hypoxic respiratory failure: on BiPAP #COVID-19: PCR positive. #Acute encephalopathy/underlying vascular dementia, also electrolyte abnormalities Recs: IV Cefepime. Continue IV vancomycin f/u MRSA nasal PCR agree with goals of care discussion and possible hospice Continue Remdesivir to complete 5 days given COVID PCR positive. Irma Boyd MD [facility] O: [phone] F: [phone] Subjective Date of service: 12/30/20 Principal diagnosis: Ac. hypercapnic and hypoxemic resp failure; MOUNA; Severe sepsis; COVID-19 Interval history: Afebrile over last 24 hours, white count 9.4 which has resolved. Cultures remain negative so far. Imaging personally reviewed: Abdominal x-ray: Dobbhoff tube in place. Objective - Exam Narrative Exam: Physical Exam: Constitutional:unresponsive, on BiPAP Head, Ears, Nose: Normocephalic, atraumatic. Eyes: Conjunctivae/corneas clear. No icterus. No ptosis. Neck: Supple, no meningeal signs Oral: BiPAP Cardiovascular: S1, S2 normal. Respiratory: b/l rhonchi + GI: Soft, non-tender; bowel sounds normal. No peritoneal signs Musculoskeletal: No pedal edema, no cyanosis. Skin: No rash or abscess Hem/Lymphatic: No palpable cervical or supraclavicular nodes. No lymphangitis Psych: no agitation Neurological: unresponsive - Constitutional Vitals: Vital Signs Temp Pulse Resp BP Pulse Ox 98.7 F 102 H 22 131/69 92 12/30/20 08:00 12/30/20 12:00 12/30/20 12:00 12/30/20 12:00 12/30/20 12:00 Temperature -Last 24 Hours Temperature 98.7 F Temperature 98.8 F Temperature 99.6 F Temperature 98.6 F - Labs CBC & Chem 7: 12/30/20 07:38 12/30/20 07:38 Labs: Abnormal lab results 12/29/20 12/29/20 12/29/20 Range/Units 09:25 17:24 19:08 RBC (3.65-5.03) M/mm3 Hgb (10.1-14.3) gm/dl Hct (30.3-42.9) % MCH (28-32) pg RDW (13.2-15.2) % Lymph % (Auto) (13.4-35.0) % Gillespie % (Auto) (0.0-7.3) % Lymph # (Auto) (1.2-5.4) K/mm3 [place]illespie # (Auto) (0.0-0.8) K/mm3 Seg Neutrophils % (40.0-70.0) % Seg Neutrophils # (1.8-7.7) K/mm3 D-Dimer 2475.06 H (0-234) ng/mlDDU Potassium (3.6-5.0) mmol/L Chloride (98-107) mmol/L BUN (7-17) mg/dL Glucose (65-100) mg/dL POC Glucose 109 H (70-105) mg/dL Ferritin (10.0-200.0) ng/mL Lactate Dehydrogenase (91-180) units/L C-Reactive Protein (0.00-1.30) mg/dL Coronavirus (PCR) Positive A (Negative) 12/29/20 12/29/20 12/29/20 Range/Units 19:08 19:08 22:06 RBC (3.65-5.03) M/mm3 Hgb (10.1-14.3) gm/dl Hct (30.3-42.9) % MCH (28-32) pg RDW (13.2-15.2) % Lymph % (Auto) (13.4-35.0) % Gillespie % (Auto) (0.0-7.3) % Lymph # (Auto) (1.2-5.4) K/mm3 [place]illespie # (Auto) (0.0-0.8) K/mm3 Seg Neutrophils % (40.0-70.0) % Seg Neutrophils # (1.8-7.7) K/mm3 D-Dimer (0-234) ng/mlDDU Potassium (3.6-5.0) mmol/L Chloride (98-107) mmol/L BUN (7-17) mg/dL Glucose 119 H (65-100) mg/dL POC Glucose 120 H (70-105) mg/dL Ferritin 486.0 H (10.0-200.0) ng/mL Lactate Dehydrogenase 386 H (91-180) units/L C-Reactive Protein 33.60 H (0.00-1.30) mg/dL Coronavirus (PCR) (Negative) 12/30/20 12/30/20 12/30/20 Range/Units 04:55 07:38 07:38 RBC 3.64 L (3.65-5.03) M/mm3 Hgb 9.8 L (10.1-14.3) gm/dl Hct 29.9 L (30.3-42.9) % MCH 27 L (28-32) pg RDW 20.3 H (13.2-15.2) % Lymph % (Auto) 3.5 L (13.4-35.0) % [place]pie % (Auto) 10.7 H (0.0-7.3) % Lymph # (Auto) 0.3 L (1.2-5.4) K/mm3 [place]illespie # (Auto) 1.0 H (0.0-0.8) K/mm3 Seg Neutrophils % 85.5 H (40.0-70.0) % Seg Neutrophils # 8.0 H (1.8-7.7) K/mm3 D-Dimer (0-234) ng/mlDDU Potassium 5.5 H D (3.6-5.0) mmol/L Chloride 109.4 H (98-107) mmol/L BUN 38 H (7-17) mg/dL Glucose 133 H (65-100) mg/dL POC Glucose 123 H (70-105) mg/dL Ferritin (10.0-200.0) ng/mL Lactate Dehydrogenase (91-180) units/L C-Reactive Protein (0.00-1.30) mg/dL Coronavirus (PCR) (Negative)
--- NOTE | 2020-12-30 15:01 | Progress Note ---
Assessment and Plan Acute hypercapnic respiratory failure Acute kidney injury Acute toxic metabolic encephalopathy. Acute hypoxemic respiratory failure on noninvasive ventilation Severe sepsis, presumably due to bilateral pneumonia Bilateral pneumonia, aspiration Possible urinary tract infections History of diabetes - get stat ABG and address - continue on RTC NIV for now (await families final decision while transitioning to qhs only BIPAP as tolerated) - repeat CXR with persistent disease burden - continue care as below otherwise; - continue aspiration precautions (HOB > 40 degrees) - continue lung protective strategies - continue bronchodilators with pulmonary hygiene per RT - wean per pulmonary driven protocols otherwise - avoid nephrotoxins, renally dose all medications - continue to avoid benzodiazepine's, reduce the possibility of delirium - complete AB's per ID rec's - prn analgesia per CPOT score - Maintenance of sleep-wake cycle, avoid delirium - continue enteral nutritional support at goal rate as tolerated - G.I. & VTE prophylaxis - PT/OT/ROM exercises - continue mobility protocols for pressure ulcer prophylaxis - Monitor hemodynamics closely - continue other care per attending / other consultants - discharge planning ongoing concurrently COVID SPECIFIC INTERVENTIONS - Remdesivir as per ID/Pulmonary developed protocols - continue systemic steroids for severe COVID-19 infection empirically - follow repeat COVID tests results - zinc and vitamin C supplementation - Monitor inflammatory markers per facility protocol - ferritin, Ddimer, CRP - therapeutic anticoagulation per system Protocol based on d-dimer and clinical considerations - Continue contact and airborne isolation .... Re-evaluate in am & prn CONDITION: CRITICAL PROGNOSIS: GUARDED CODE STATUS: FULL CODE The high probability of a clinically significant, sudden or life-threatening deterioration of the [respiratory, cardiovascular, GI & neurologic] system(s) required my full and direct attention, intervention and personal management. The aggregate critical care time was [32] minutes without overlap. Time includes spent on; [x] Data Review and interpretation [x] Patient assessment and monitoring of vital signs [x] Documentation [x] Medication orders and management Subjective Date of service: 12/30/20 Principal diagnosis: Ac. hypercapnic and hypoxemic resp failure; MOUNA; Severe sepsis; COVID-19 Interval history: Patient is seen today for: Acute hypercapnic and hypoxemic respiratory failure; Acute kidney injury; Acute toxic metabolic encephalopathy; Severe sepsis; Bilateral pneumonia; COVID-19 infection Seen and examined at bedside; 24hour events reviewed; nursing and respiratory care staff consulted; no adverse overnight events reported to me; resting in bed; remains AVAPS dependent; breathing much better; responds more appropriately; FiO2 down to 70% but O2 sats in 80's Objective Vital Signs - 12hr 12/30/20 12/30/20 12/30/20 03:30 04:00 04:30 Temperature 98.8 F Pulse Rate 84 85 85 Respiratory 33 H 34 H 33 H Rate Blood Pressure 137/64 127/59 130/64 O2 Sat by Pulse 100 100 98 Oximetry 12/30/20 12/30/20 12/30/20 04:40 05:00 05:31 Temperature Pulse Rate 85 83 96 H Respiratory 33 H 33 H 34 H Rate Blood Pressure 130/64 128/64 147/72 O2 Sat by Pulse 100 99 97 Oximetry 12/30/20 12/30/20 12/30/20 06:01 06:30 07:00 Temperature Pulse Rate 93 H 86 86 Respiratory 33 H 33 H 33 H Rate Blood Pressure 159/66 129/62 126/62 O2 Sat by Pulse 97 98 98 Oximetry 12/30/20 12/30/20 12/30/20 07:31 08:00 08:30 Temperature 98.7 F Pulse Rate 86 83 92 H Respiratory 31 H 33 H 35 H Rate Blood Pressure 118/56 136/60 146/68 O2 Sat by Pulse 99 100 94 Oximetry 12/30/20 12/30/20 12/30/20 09:00 09:30 10:00 Temperature Pulse Rate 89 90 91 H Respiratory 34 H 34 H 32 H Rate Blood Pressure 131/63 145/50 135/60 O2 Sat by Pulse 94 95 96 Oximetry 12/30/20 12/30/20 12/30/20 10:21 10:22 10:30 Temperature Pulse Rate 91 H 92 H 91 H Respiratory 34 H Rate Blood Pressure 135/60 135/60 134/57 O2 Sat by Pulse 94 Oximetry 12/30/20 12/30/20 12/30/20 11:00 11:30 12:00 Temperature Pulse Rate 94 H 96 H 102 H Respiratory 34 H 35 H 22 Rate Blood Pressure 131/74 129/69 131/69 O2 Sat by Pulse 92 91 92 Oximetry Constitutional: appears uncomfortable (less so), other (elderly obese female wi th mildly increased respiratory effort at rest on NIV) Eyes: non-icteric ENT: oropharynx moist, other (BIPAP FFM) Neck: supple, no lymphadenopathy, no JVD Effort: mildly labored Ascultation: Bilateral: diminished breath sounds, rhonchi Percussion: Bilateral: not dull Cardiovascular: regular rate and rhythm Gastrointestinal: normoactive bowel sounds, soft, non-tender, non-distended (protuberant) Integumentary: normal Extremities: no cyanosis, no edema, pink and warm, pulses normal Neurologic: non-focal exam (grossly), unable to assess Psychiatric: other (unable to assess re: AMS) CBC and BMP: 12/30/20 07:38 12/30/20 07:38 ABG, PT/INR, D-dimer: ABG ABG pH 7.355 (7.320-7.450) 12/28/20 18:09 POC ABG pCO2 46.8 mmHg (32.0-48.0) 12/28/20 18:09 POC ABG pO2 57.8 mmHg (83-108) L 12/28/20 18:09 POC ABG HCO3 25.5 12/28/20 18:09 ABG O2 Saturation 91.0 (0-100) 12/28/20 18:09 PT/INR, D-dimer D-Dimer 2475.06 ng/mlDDU (0-234) H 12/29/20 19:08 Abnormal lab findings: Abnormal Labs 12/25/20 12/25/20 12/26/20 11:35 11:35 15:02 WBC 20.1 H RBC Hgb Hct MCV 77 L MCH 26 L RDW 19.1 H Plt Count 473 H Lymph % (Auto) [place] % (Auto) Lymph # (Auto) [place] # (Auto) Seg Neutrophils % Seg Neuts % (Manual) 89.0 H Lymphocytes % (Manual) 5.0 L Monocytes % (Manual) Seg Neutrophils # Seg Neutrophils # Man 17.9 H Lymphocytes # (Manual) 1.0 L Monocytes # (Manual) D-Dimer ABG pH POC ABG pCO2 POC ABG pO2 ABG Hemoglobin ABG Oxyhemoglobin ABG Sodium ABG Chloride ABG Glucose Carboxyhemoglobin Sodium 122 L Potassium 2.7 L* Chloride 80.2 L Carbon Dioxide 21 L BUN 35 H Creatinine Glucose 154 H POC Glucose 161 H Phosphorus Ferritin Lactate Dehydrogenase C-Reactive Protein Albumin 3.5 L Arterial Blood Glucose Coronavirus (PCR) 12/26/20 12/26/20 12/26/20 15:07 15:07 21:19 WBC 17.9 H RBC Hgb Hct MCV 78 L MCH 26 L RDW 19.3 H Plt Count Lymph % (Auto) [place] % (Auto) Lymph # (Auto) [place] # (Auto) Seg Neutrophils % Seg Neuts % (Manual) Lymphocytes % (Manual) Monocytes % (Manual) Seg Neutrophils # Seg Neutrophils # Man Lymphocytes # (Manual) Monocytes # (Manual) D-Dimer ABG pH POC ABG pCO2 POC ABG pO2 ABG Hemoglobin ABG Oxyhemoglobin ABG Sodium ABG Chloride ABG Glucose Carboxyhemoglobin Sodium 122 L Potassium 2.7 L* Chloride 82.7 L Carbon Dioxide BUN 19 H Creatinine Glucose 138 H POC Glucose 142 H Phosphorus Ferritin Lactate Dehydrogenase C-Reactive Protein Albumin Arterial Blood Glucose Coronavirus (PCR) 12/27/20 12/27/20 12/27/20 05:10 05:10 06:52 WBC 21.7 H RBC Hgb Hct MCV 78 L MCH 26 L RDW 19.2 H Plt Count Lymph % (Auto) [place] % (Auto) Lymph # (Auto) [place] # (Auto) Seg Neutrophils % Seg Neuts % (Manual) 92.0 H Lymphocytes % (Manual) Monocytes % (Manual) 8.0 H Seg Neutrophils # Seg Neutrophils # Man 20.0 H Lymphocytes # (Manual) 0.0 L Monocytes # (Manual) 1.7 H D-Dimer ABG pH POC ABG pCO2 POC ABG pO2 ABG Hemoglobin ABG Oxyhemoglobin ABG Sodium ABG Chloride ABG Glucose Carboxyhemoglobin Sodium 128 L Potassium 2.8 L* Chloride 86.3 L Carbon Dioxide BUN 21 H Creatinine Glucose 147 H POC Glucose Phosphorus 1.50 L Ferritin Lactate Dehydrogenase C-Reactive Protein Albumin Arterial Blood Glucose Coronavirus (PCR) 12/27/20 12/27/20 12/27/20 07:33 13:16 16:42 WBC RBC Hgb Hct MCV MCH RDW Plt Count Lymph % (Auto) [place] % (Auto) Lymph # (Auto) [place] # (Auto) Seg Neutrophils % Seg Neuts % (Manual) Lymphocytes % (Manual) Monocytes % (Manual) Seg Neutrophils # Seg Neutrophils # Man Lymphocytes # (Manual) Monocytes # (Manual) D-Dimer ABG pH POC ABG pCO2 POC ABG pO2 ABG Hemoglobin ABG Oxyhemoglobin ABG Sodium ABG Chloride ABG Glucose Carboxyhemoglobin Sodium Potassium Chloride Carbon Dioxide BUN Creatinine Glucose POC Glucose 163 H 165 H 124 H Phosphorus Ferritin Lactate Dehydrogenase C-Reactive Protein Albumin Arterial Blood Glucose Coronavirus (PCR) 12/27/20 12/27/20 12/27/20 19:00 19: 21:58 WBC RBC Hgb Hct MCV MCH RDW Plt Count Lymph % (Auto) [place] % (Auto) Lymph # (Auto) [place] # (Auto) Seg Neutrophils % Seg Neuts % (Manual) Lymphocytes % (Manual) Monocytes % (Manual) Seg Neutrophils # Seg Neutrophils # Man Lymphocytes # (Manual) Monocytes # (Manual) D-Dimer ABG pH POC ABG pCO2 53.3 H POC ABG pO2 51.3 L ABG Hemoglobin ABG Oxyhemoglobin 86.9 L ABG Sodium ABG Chloride 91.0 L ABG Glucose 143 H Carboxyhemoglobin Sodium Potassium Chloride Carbon Dioxide BUN Creatinine Glucose POC Glucose 141 H 137 H Phosphorus Ferritin Lactate Dehydrogenase C-Reactive Protein Albumin Arterial Blood Glucose 143 H Coronavirus (PCR) 12/28/20 12/28/20 12/28/20 07:49 10:01 10:01 WBC 15.2 H RBC Hgb Hct MCV MCH 26 L RDW 19.5 H Plt Count Lymph % (Auto) 1.8 L [place] % (Auto) 8.2 H Lymph # (Auto) 0.3 L [place] # (Auto) 1.2 H Seg Neutrophils % 90.0 H Seg Neuts % (Manual) Lymphocytes % (Manual) Monocytes % (Manual) Seg Neutrophils # 13.6 H Seg Neutrophils # Man Lymphocytes # (Manual) Monocytes # (Manual) D-Dimer ABG pH POC ABG pCO2 POC ABG pO2 ABG Hemoglobin ABG Oxyhemoglobin ABG Sodium ABG Chloride ABG Glucose Carboxyhemoglobin Sodium 133 L Potassium Chloride 94.4 L Carbon Dioxide 31 H BUN 40 H Creatinine 1.6 H D Glucose 122 H POC Glucose 122 H Phosphorus Ferritin Lactate Dehydrogenase C-Reactive Protein Albumin Arterial Blood Glucose Coronavirus (PCR) 12/28/20 12/28/20 12/28/20 12:11 12:15 13:15 WBC RBC Hgb Hct MCV MCH RDW Plt Count Lymph % (Auto) [place] % (Auto) Lymph # (Auto) [place] # (Auto) Seg Neutrophils % Seg Neuts % (Manual) Lymphocytes % (Manual) Monocytes % (Manual) Seg Neutrophils # Seg Neutrophils # Man Lymphocytes # (Manual) Monocytes # (Manual) D-Dimer ABG pH 7.184 L POC ABG pCO2 80.7 H POC ABG pO2 76.0 L ABG Hemoglobin 10.3 L ABG Oxyhemoglobin 92.7 L ABG Sodium 134.5 L ABG Chloride 96.0 L ABG Glucose 119 H Carboxyhemoglobin 0.3 L Sodium Potassium Chloride Carbon Dioxide BUN Creatinine Glucose POC Glucose 123 H Phosphorus Ferritin Lactate Dehydrogenase C-Reactive Protein 25.50 H Albumin Arterial Blood Glucose 119 H Coronavirus (PCR) 12/28/20 12/29/20 12/29/20 18:09 09:25 17:24 WBC RBC Hgb Hct MCV MCH RDW Plt Count Lymph % (Auto) [place] % (Auto) Lymph # (Auto) [place] # (Auto) Seg Neutrophils % Seg Neuts % (Manual) Lymphocytes % (Manual) Monocytes % (Manual) Seg Neutrophils # Seg Neutrophils # Man Lymphocytes # (Manual) Monocytes # (Manual) D-Dimer ABG pH POC ABG pCO2 POC ABG pO2 57.8 L ABG Hemoglobin 10.2 L ABG Oxyhemoglobin 90.4 L ABG Sodium 134.4 L ABG Chloride ABG Glucose 98 H Carboxyhemoglobin 0.4 L Sodium Potassium Chloride Carbon Dioxide BUN Creatinine Glucose POC Glucose 109 H Phosphorus Ferritin Lactate Dehydrogenase C-Reactive Protein Albumin Arterial Blood Glucose 98 H Coronavirus (PCR) Positive A 12/29/20 12/29/20 12/29/20 19:08 19:08 19:08 WBC RBC Hgb Hct MCV MCH RDW Plt Count Lymph % (Auto) [place] % (Auto) Lymph # (Auto) [place] # (Auto) Seg Neutrophils % Seg Neuts % (Manual) Lymphocytes % (Manual) Monocytes % (Manual) Seg Neutrophils # Seg Neutrophils # Man Lymphocytes # (Manual) Monocytes # (Manual) D-Dimer 2475.06 H ABG pH POC ABG pCO2 POC ABG pO2 ABG Hemoglobin ABG Oxyhemoglobin ABG Sodium ABG Chloride ABG Glucose Carboxyhemoglobin Sodium Potassium Chloride Carbon Dioxide BUN Creatinine Glucose 119 H POC Glucose Phosphorus Ferritin 486.0 H Lactate Dehydrogenase 386 H C-Reactive Protein 33.60 H Albumin Arterial Blood Glucose Coronavirus (PCR) 12/29/20 12/30/20 12/30/20 22:06 04:55 07:38 WBC RBC 3.64 L Hgb 9.8 L Hct 29.9 L MCV MCH 27 L RDW 20.3 H Plt Count Lymph % (Auto) 3.5 L [place] % (Auto) 10.7 H Lymph # (Auto) 0.3 L [place] # (Auto) 1.0 H Seg Neutrophils % 85.5 H Seg Neuts % (Manual) Lymphocytes % (Manual) Monocytes % (Manual) Seg Neutrophils # 8.0 H Seg Neutrophils # Man Lymphocytes # (Manual) Monocytes # (Manual) D-Dimer ABG pH POC ABG pCO2 POC ABG pO2 ABG Hemoglobin ABG Oxyhemoglobin ABG Sodium ABG Chloride ABG Glucose Carboxyhemoglobin Sodium Potassium Chloride Carbon Dioxide BUN Creatinine Glucose POC Glucose 120 H 123 H Phosphorus Ferritin Lactate Dehydrogenase C-Reactive Protein Albumin Arterial Blood Glucose Coronavirus (PCR) 12/30/20 12/30/20 07:38 11:49 WBC RBC Hgb Hct MCV MCH RDW Plt Count Lymph % (Auto) [place] % (Auto) Lymph # (Auto) [place] # (Auto) Seg Neutrophils % Seg Neuts % (Manual) Lymphocytes % (Manual) Monocytes % (Manual) Seg Neutrophils # Seg Neutrophils # Man Lymphocytes # (Manual) Monocytes # (Manual) D-Dimer ABG pH POC ABG pCO2 POC ABG pO2 ABG Hemoglobin ABG Oxyhemoglobin ABG Sodium ABG Chloride ABG Glucose Carboxyhemoglobin Sodium Potassium 5.5 H D Chloride 109.4 H Carbon Dioxide BUN 38 H Creatinine Glucose 133 H POC Glucose 123 H Phosphorus Ferritin Lactate Dehydrogenase C-Reactive Protein Albumin Arterial Blood Glucose Coronavirus (PCR) Chest x-ray: image reviewed (persistent stable infiltrates) Allied health notes reviewed: nursing
--- NOTE | 2020-12-30 15:06 | Electrocardiograph Report ---
[facility] Test Date: 2020-12-30 Test Time: 12:45:01 Pat Name: KRISTINE CROSS Department: Room: A263 1 Gender: F [employer]: ARNALDO : [id number] Requested By: RUDOLPH CHENG Order Number: [id number] Reading MD: Percy Washington Measurements Intervals [place] Rate: 99 P: -78 [place]: 194 QRS: -57 QRSD: 91 T: 85 QT: 311 QTc: 400 Interpretive Statements Sinus rhythm Left ventricular hypertrophy Inferior infarct, old Anterior infarct, old Compared to ECG 12/27/2020 20:01:39 Left anterior fascicular block no longer present Myocardial infarct finding still present Electronically Signed On 12-30-2020 15:05:34 EDT by Percy Washington
--- NOTE | 2020-12-30 16:04 | XRay Report ---
CHEST 1 VIEW 12/30/2020 2:57 PM INDICATION / CLINICAL INFORMATION: aspiration. COMPARISON: July 29, 2020 FINDINGS: SUPPORT DEVICES: Dobbhoff tube extends within the stomach HEART / MEDIASTINUM: No significant abnormality. LUNGS / PLEURA: Diffuse opacities in bilateral lungs appear slightly increased. No pneumothorax. ADDITIONAL FINDINGS: No significant additional findings. IMPRESSION: 1. Bilateral pulmonary opacities are slightly increased. Signer Name: Nakul Flores MD Signed: 12/30/2020 3:59 PM Workstation Name: [email or web address]
[2020-12-30] MEDS: dexAMETHasone 4 MG/ML VIAL IV SCH (17:02)
[2020-12-30] MEDS: D5W/0.9% NACL 1,000 ML IV SCH (17:03)
[2020-12-30] MEDS: METOCLOPRAMIDE 10 MG/2 ML INJ IV SCH ×2 (17:03→22:53)
[2020-12-30 17:17] LABS: Albumin 2.3 g/dL (3.9-5); Calcium 9.4 mg/dL (8.4-10.2)
--- NOTE | 2020-12-30 18:10 | Progress Note ---
Assessment and Plan 85 YO Female with HTN, DM, presents ED for generalized weakness and not eating and drinking well. In the ER patient found to have hyponatremia hypokalemia dehydration and physical debility. Patient admitted to the medical floor for further evaluation and management. Now developed respiratory failure with aspiration pneumonia and positive for COVID-19. A/P --Acute hypoxic respiratory failure, not POA Likely due to COVID 19 and aspiration pneumonia, patient placed on BiPAP consulted pulmonary and ID Continue scheduled breathing treatment and empiric antibiotics follow ID recommendation --Sepsis, likely due to covid 19 and aspiration pneumonia Patient initially admitted with SIRS criteria and infectious work-up initially was negative Repeat checks x-ray now showing pulmonary infiltrate Consulted ID, continue empiric antibiotics, patient is tested positive for COVID: Initiated on COVID-19 protocol, also being treated for aspiration pneumonia with empiric antibiotics --COVID 19 PNA, consulted ID , follow protocol -Patient tested positive for COVID-19 virus on 12/29/20 -CXR shows b/l patchy parenchymal disease which represent atypical pneumonia and also aspiration -Placed on dexamethasone for total 10 days and remdesivir total 5 days -Infectious disease consulted, appreciate recommendations -Droplet/contact isolation -Continue SPO2 monitoring -Supplemental oxygen as needed -Pulmonary hygiene -Prone to sleep -Vitamin C, vitamin D, zinc -Start Eliquis 5 mg twice daily as D-dimer is elevated -Lasix IV as needed to prevent pulmonary edema --aspiration PNA, cont iv abx --Physical debility Fall precautions, supportive care. PT eval --Hyponatremia syndrome, resolved with IV fluid Likely due to dehydration and lacking oral intake --Hyperkalemia: Treated with Kayexalate bicarbonate and calcium gluconate -- Hypokalemia Presented with EKG prolonged HI and generalized weakness, repleted and now resolved -- Hypertension Monitor blood pressure every shift, continue medical management. Resume patient's home meds -- Diabetes mellitus type II Consistent carbohydrate diet, sliding scale insulin therapy, Accu-Chek. --MOUNA, cont gentle hydration, follow BMP -- DVT prophylaxis SCD to bilateral lower extremities while in bed, prophylactic anticoagulation --DNR CODE STATUS --Unable to place for inpatient hospice as patient is Covid positive The high probability of a clinically significant, sudden or life threatening deterioration of the system(CATEGORY ANALYST, CVS, respiratory, renal) required my full and direct attention, intervention and personal management. The aggregate critical care time was [45] minutes. This time is in addition to time spent performing reported procedures but includes the following: [x] Data Review and interpretation [x] Patient assessment and monitoring of vital signs [x] Documentation [x] Medication orders and management Daily clinical course: 12/26/20; continue IV fluids. Resume home meds, continue consistent carb with sliding scale insulin. Start on nutritional supplement as pt is Having limited oral intake. PT eval, discussed with caser up for hospice placement. 12/27/20; white count remains elevated, no clear source of infection yet. Continue to replete potassium-today K was 2.8. patient spiking fever, will consult ID. 12/28/20; Discussed with patient's daughter and pt did not have covid vaccine yet. family also denies any h/o dementia, will order COVID test. patient o/n placed on BIPAP and cxr showing consolidation. transferred to ICU. Consult CC, ID following. cont gentle hydration. Family wants to keep the patient full code 12/29/20; Positive for COVID, consult ID. family wants hospice and DNR, But they also want to cont with treatment for COVID. Start on steroid, will order remdesivir if Cr level improves. 12/30/20: We will initiate on remdesivir as renal function has improved. Treat hyperkalemia with Kayexalate bicarbonate and calcium gluconate. Continue dexame thasone and BiPAP. Unable to place for inpatient hospice as patient is Covid positive. But family also wished to continue treatment for COVID-19. D-dimer noted to be elevated -we will initiate on therapeutic dose of Eliquis. Continue to monitor H&H. Will start on tube feeding, continue gentle IV fluid hydration with D5 normal saline. Subjective Date of service: 12/30/20 Principal diagnosis: Ac. hypercapnic and hypoxemic resp failure; MOUNA; Severe sepsis; COVID-19 Interval history: Patient seen and examined. Medical records and medication list reviewed. Patient remains on BiPAP, continues to be lethargic Repeat chest x-ray showed pulmonary infiltrates, patient also positive for COVID-19 Discussed with family and requested DNR Objective - Exam Narrative Exam: GENERAL: elderly white female currently on BiPAP, lethargic, HEENT: Normocephalic. Atraumatic. No conjunctival congestion or icterus. Patient has moist mucous membranes. NECK: Supple. Trachea midline. CHEST/LUNGS: Coarse breath sound bilaterally HEART/CARDIOVASCULAR: Regular in rate and rhythm. S1 and S2 positive. ABDOMEN: Abdomen is soft, nontender. Patient has normal bowel sounds. SKIN: There is no rash. Warm and dry. NEURO: No focal motor deficit. Unable to follow any command MUSCULOSKELETAL: No joint effusion or tenderness. EXTRIMITY: No edema, no cyanosis or clubbing. PSYCH: Unable to assess - Constitutional Vitals: Vital Signs - 12hr 12/30/20 12/30/20 12/30/20 06:30 07:00 07:31 Temperature Pulse Rate 86 86 86 Respiratory 33 H 33 H 31 H Rate Blood Pressure 129/62 126/62 118/56 O2 Sat by Pulse 98 98 99 Oximetry 12/30/20 12/30/20 12/30/20 08:00 08:30 09:00 Temperature 98.7 F Pulse Rate 88 92 H 89 Respiratory 33 H 35 H 34 H Rate Blood Pressure 136/60 146/68 131/63 O2 Sat by Pulse 100 94 94 Oximetry 12/30/20 12/30/20 12/30/20 09:30 10:00 10:21 Temperature Pulse Rate 90 91 H 91 H Respiratory 34 H 32 H Rate Blood Pressure 145/50 135/60 135/60 O2 Sat by Pulse 95 96 Oximetry 12/30/20 12/30/20 12/30/20 10:22 10:30 11:00 Temperature Pulse Rate 92 H 91 H 94 H Respiratory 34 H 34 H Rate Blood Pressure 135/60 134/57 131/74 O2 Sat by Pulse 94 92 Oximetry 12/30/20 12/30/20 12/30/20 11:30 12:00 12:30 Temperature Pulse Rate 96 H 99 H 100 H Respiratory 35 H 22 36 H Rate Blood Pressure 129/69 131/69 138/75 O2 Sat by Pulse 91 92 90 Oximetry 12/30/20 12/30/20 12/30/20 13:01 13:30 14:00 Temperature Pulse Rate 110 H 104 H 104 H Respiratory 37 H 38 H 35 H Rate Blood Pressure 139/66 136/68 129/69 O2 Sat by Pulse 93 92 91 Oximetry 12/30/20 12/30/20 12/30/20 14:30 15:00 15:31 Temperature Pulse Rate 103 H 106 H 105 H Respiratory 36 H 34 H 36 H Rate Blood Pressure 118/67 136/68 136/68 O2 Sat by Pulse 91 91 89 Oximetry 12/30/20 12/30/20 12/30/20 16:00 16:01 16:31 Temperature 99.4 F Pulse Rate 103 H 100 H 106 H Respiratory 37 H 35 H 38 H Rate Blood Pressure 131/69 136/68 136/68 O2 Sat by Pulse 93 93 89 Oximetry 12/30/20 12/30/20 12/30/20 16:34 17:00 17:31 Temperature Pulse Rate 101 H 96 H 100 H Respiratory 32 H 33 H Rate Blood Pressure 156/71 156/71 O2 Sat by Pulse 91 94 Oximetry - Labs CBC & Chem 7: 12/30/20 07:38 12/30/20 15:28 Labs: Abnormal lab results 12/29/20 12/29/20 12/29/20 Range/Units 17:24 19:08 19:08 RBC (3.65-5.03) M/mm3 Hgb (10.1-14.3) gm/dl Hct (30.3-42.9) % MCH (28-32) pg RDW (13.2-15.2) % Lymph % (Auto) (13.4-35.0) % [place] % (Auto) (0.0-7.3) % Lymph # (Auto) (1.2-5.4) K/mm3 [place] # (Auto) (0.0-0.8) K/mm3 Seg Neutrophils % (40.0-70.0) % Seg Neutrophils # (1.8-7.7) K/mm3 D-Dimer 2475.06 H (0-234) ng/mlDDU POC ABG pO2 (83-108) mmHg ABG Hemoglobin (12.0-17.5) ABG Oxyhemoglobin (94-98) ABG Sodium (136.0-145.0) mmol/L ABG Chloride (98-107) mmol/L ABG Glucose (65-95) mg/dL Potassium (3.6-5.0) mmol/L Chloride (98-107) mmol/L Carbon Dioxide (22-30) mmol/L BUN (7-17) mg/dL Glucose 119 H (65-100) mg/dL POC Glucose 109 H (70-105) mg/dL Ferritin (10.0-200.0) ng/mL Lactate Dehydrogenase 386 H (91-180) units/L C-Reactive Protein 33.60 H (0.00-1.30) mg/dL Total Protein (6.3-8.2) g/dL Albumin (3.9-5) g/dL Arterial Blood Glucose (65-95) mg/dL 12/29/20 12/29/20 12/30/20 Range/Units 19:08 22:06 04:55 RBC (3.65-5.03) M/mm3 Hgb (10.1-14.3) gm/dl Hct (30.3-42.9) % MCH (28-32) pg RDW (13.2-15.2) % Lymph % (Auto) (13.4-35.0) % [place] % (Auto) (0.0-7.3) % Lymph # (Auto) (1.2-5.4) K/mm3 [place] # (Auto) (0.0-0.8) K/mm3 Seg Neutrophils % (40.0-70.0) % Seg Neutrophils # (1.8-7.7) K/mm3 D-Dimer (0-234) ng/mlDDU POC ABG pO2 (83-108) mmHg ABG Hemoglobin (12.0-17.5) ABG Oxyhemoglobin (94-98) ABG Sodium (136.0-145.0) mmol/L ABG Chloride (98-107) mmol/L ABG Glucose (65-95) mg/dL Potassium (3.6-5.0) mmol/L Chloride (98-107) mmol/L Carbon Dioxide (22-30) mmol/L BUN (7-17) mg/dL Glucose (65-100) mg/dL POC Glucose 120 H 123 H (70-105) mg/dL Ferritin 486.0 H (10.0-200.0) ng/mL Lactate Dehydrogenase (91-180) units/L C-Reactive Protein (0.00-1.30) mg/dL Total Protein (6.3-8.2) g/dL Albumin (3.9-5) g/dL Arterial Blood Glucose (65-95) mg/dL 12/30/20 12/30/20 12/30/20 Range/Units 07:38 07:38 11:49 RBC 3.64 L (3.65-5.03) M/mm3 Hgb 9.8 L (10.1-14.3) gm/dl Hct 29.9 L (30.3-42.9) % MCH 27 L (28-32) pg RDW 20.3 H (13.2-15.2) % Lymph % (Auto) 3.5 L (13.4-35.0) % [place] % (Auto) 10.7 H (0.0-7.3) % Lymph # (Auto) 0.3 L (1.2-5.4) K/mm3 [place] # (Auto) 1.0 H (0.0-0.8) K/mm3 Seg Neutrophils % 85.5 H (40.0-70.0) % Seg Neutrophils # 8.0 H (1.8-7.7) K/mm3 D-Dimer (0-234) ng/mlDDU POC ABG pO2 (83-108) mmHg ABG Hemoglobin (12.0-17.5) ABG Oxyhemoglobin (94-98) ABG Sodium (136.0-145.0) mmol/L ABG Chloride (98-107) mmol/L ABG Glucose (65-95) mg/dL Potassium 5.5 H D (3.6-5.0) mmol/L Chloride 109.4 H (98-107) mmol/L Carbon Dioxide (22-30) mmol/L BUN 38 H (7-17) mg/dL Glucose 133 H (65-100) mg/dL POC Glucose 123 H (70-105) mg/dL Ferritin (10.0-200.0) ng/mL Lactate Dehydrogenase (91-180) units/L C-Reactive Protein (0.00-1.30) mg/dL Total Protein (6.3-8.2) g/dL Albumin (3.9-5) g/dL Arterial Blood Glucose (65-95) mg/dL 12/30/20 12/30/20 12/30/20 Range/Units 15:20 15:28 17:31 RBC (3.65-5.03) M/mm3 Hgb (10.1-14.3) gm/dl Hct (30.3-42.9) % MCH (28-32) pg RDW (13.2-15.2) % Lymph % (Auto) (13.4-35.0) % [place] % (Auto) (0.0-7.3) % Lymph # (Auto) (1.2-5.4) K/mm3 [place] # (Auto) (0.0-0.8) K/mm3 Seg Neutrophils % (40.0-70.0) % Seg Neutrophils # (1.8-7.7) K/mm3 D-Dimer (0-234) ng/mlDDU POC ABG pO2 55.0 L (83-108) mmHg ABG Hemoglobin 9.4 L (12.0-17.5) ABG Oxyhemoglobin 87.6 L (94-98) ABG Sodium 148.7 H (136.0-145.0) mmol/L ABG Chloride 113.0 H (98-107) mmol/L ABG Glucose 166 H (65-95) mg/dL Potassium (3.6-5.0) mmol/L Chloride 111.2 H (98-107) mmol/L Carbon Dioxide 21 L (22-30) mmol/L BUN 41 H (7-17) mg/dL Glucose 143 H (65-100) mg/dL POC Glucose 149 H (70-105) mg/dL Ferritin (10.0-200.0) ng/mL Lactate Dehydrogenase (91-180) units/L C-Reactive Protein (0.00-1.30) mg/dL Total Protein 5.7 L (6.3-8.2) g/dL Albumin 2.3 L (3.9-5) g/dL Arterial Blood Glucose 166 H (65-95) mg/dL
[2020-12-30] MEDS ORDERED: D5W/0.9% NACL 1,000 ML IV SCH (19:00)
[2020-12-30] MEDS ORDERED: hydrALAZINE 20 MG/1 ML INJ IV PRN (22:37)
[2020-12-30] MEDS ORDERED: hydrALAZINE 20 MG/1 ML INJ ONE (22:50)
[2020-12-30] MEDS: ASCORBIC ACID 500 MG TAB PO SCH (22:52)
[2020-12-30] MEDS: APIXABAN 5 MG TAB PO SCH (22:53)
[2020-12-30] MEDS: ZINC SULFATE 220 MG CAP PO SCH (22:53)
[2020-12-30] MEDS: CHOLECALCIFEROL (VIT D3) 5,000 UNIT TAB PO SCH (22:54)
[2020-12-31 00:10] LABS: Hematocrit 29.1 % (30.3-42.9); Hemoglobin 9.6 gm/dl (10.1-14.3); Mean Corpuscular HGB Conc 33 % (30-34); Mean Corpuscular Volume 84 fl (79-97); Red Blood Count 3.49 M/mm3 (3.65-5.03)
[2020-12-31 00:14] LABS: Platelet Count 249 K/mm3 (140-440); Red Cell Distribution Width 20.2 % (13.2-15.2)
[2020-12-31 00:27] LABS: INR 1.43 (0.87-1.13)
[2020-12-31] MEDS: dexAMETHasone 4 MG/ML VIAL IV SCH ×2 (08:53→18:32)
[2020-12-31] MEDS: CEFEPIME/NS 1 GM/100 ML 1 GM/100 ML BAG IV SCH ×3 (08:53→18:32)
[2020-12-31] MEDS: APIXABAN 5 MG TAB PO SCH ×2 (09:36→21:47)
[2020-12-31] MEDS: amLODIPine 10 MG TAB PO SCH (09:36)
[2020-12-31] MEDS: atenoloL 50 MG TAB PO SCH (09:37)
[2020-12-31] MEDS: FLUoxetine 20 MG CAP PO SCH (09:37)
[2020-12-31] MEDS: METOCLOPRAMIDE 10 MG/2 ML INJ IV SCH ×2 (09:37→21:47)
[2020-12-31] MEDS: FAMOTIDINE 10 MG TAB PO SCH (09:37)
[2020-12-31] MEDS: VANCOMYCIN 1,250 MG in SODIUM CHLORIDE 0.9% 250ML 250 ML IV SCH (09:41)
[2020-12-31] MEDS: ZINC SULFATE 220 MG CAP PO SCH ×2 (09:42→21:47)
[2020-12-31] MEDS: ASCORBIC ACID 500 MG TAB PO SCH ×2 (09:42→21:47)
[2020-12-31] MEDS: CHOLECALCIFEROL (VIT D3) 5,000 UNIT TAB PO SCH (09:42)
[2020-12-31] MEDS: INSULIN REGULAR, HUMAN 100 UNITS/1 ML SUB-Q SCH ×2 (12:03→18:33)
--- NOTE | 2020-12-31 13:45 | Progress Note ---
Assessment and Plan Cultures: 12/25/2020 blood culture: No growth 12/26/2020 blood culture: No growth COVID PCR: positive A/P: 80-year-old female with hypertension, dementia, diabetes mellitus, admitted to the hospital with weakness: #Sepsis, likely secondary to bilateral probably aspiration pneumonia as noted on subsequent chest x-ray. UA did not show any significant pyuria. #Acute hypoxic respiratory failure: on BiPAP #COVID-19: PCR positive. #Acute encephalopathy/underlying vascular dementia, also electrolyte abnormalities Recs: IV Cefepime. Continue IV vancomycin f/u MRSA nasal PCR stop vancomycin if negative. agree with goals of care discussion and possible hospice Continue Remdesivir to complete 5 days given COVID PCR positive. Irma Boyd MD [facility] ([facility] O: [phone] F: [phone] Subjective Date of service: 12/31/20 Principal diagnosis: Ac. hypercapnic and hypoxemic resp failure; MOUNA; Severe sepsis; COVID-19 Interval history: Afebrile, cultures remain negative. On BiPAP. Family wants to continue treatment for COVID-19, otherwise considering hospice but can be placed right now due to Covid. Objective - Exam Narrative Exam: Physical Exam: Constitutional:unresponsive, on BiPAP Head, Ears, Nose: Normocephalic, atraumatic. Eyes: Conjunctivae/corneas clear. No icterus. No ptosis. Neck: Supple, no meningeal signs Oral: BiPAP Cardiovascular: S1, S2 normal. Respiratory: b/l rhonchi + GI: Soft, non-tender; bowel sounds normal. No peritoneal signs Musculoskeletal: No pedal edema, no cyanosis. Skin: No rash or abscess Hem/Lymphatic: No palpable cervical or supraclavicular nodes. No lymphangitis Psych: no agitation Neurological: unresponsive - Constitutional Vitals: Vital Signs Temp Pulse Resp BP Pulse Ox 98.5 F 95 H 30 H 143/64 93 12/31/20 12:00 12/31/20 09:37 12/31/20 09:20 12/31/20 09:37 12/31/20 09:20 Temperature -Last 24 Hours Temperature 98.5 F Temperature 98.2 F Temperature 98.2 F Temperature 98.6 F Temperature 99.6 F Temperature 99.4 F - Labs CBC & Chem 7: 12/30/20 23:43 12/30/20 23:43 Labs: Abnormal lab results 12/30/20 12/30/20 12/30/20 Range/Units 11:49 15:20 15:28 WBC (4.5-11.0) K/mm3 RBC (3.65-5.03) M/mm3 Hgb (10.1-14.3) gm/dl Hct (30.3-42.9) % MCH (28-32) pg RDW (13.2-15.2) % PT (12.2-14.9) Sec. INR (0.87-1.13) APTT (24.2-36.6) Sec. POC ABG pO2 55.0 L (83-108) mmHg ABG Hemoglobin 9.4 L (12.0-17.5) ABG Oxyhemoglobin 87.6 L (94-98) ABG Sodium 148.7 H (136.0-145.0) mmol/L ABG Chloride 113.0 H (98-107) mmol/L ABG Glucose 166 H (65-95) mg/dL Chloride 111.2 H (98-107) mmol/L Carbon Dioxide 21 L (22-30) mmol/L BUN 41 H (7-17) mg/dL Glucose 143 H (65-100) mg/dL POC Glucose 123 H (70-105) mg/dL Total Protein 5.7 L (6.3-8.2) g/dL Albumin 2.3 L (3.9-5) g/dL Arterial Blood Glucose 166 H (65-95) mg/dL 12/30/20 12/30/20 12/30/20 Range/Units 17:31 23:43 23:43 WBC 14.3 H (4.5-11.0) K/mm3 RBC 3.49 L (3.65-5.03) M/mm3 Hgb 9.6 L (10.1-14.3) gm/dl Hct 29.1 L (30.3-42.9) % MCH 27 L (28-32) pg RDW 20.2 H (13.2-15.2) % PT 18.1 H (12.2-14.9) Sec. INR 1.43 H (0.87-1.13) APTT 23.0 L (24.2-36.6) Sec. POC ABG pO2 (83-108) mmHg ABG Hemoglobin (12.0-17.5) ABG Oxyhemoglobin (94-98) ABG Sodium (136.0-145.0) mmol/L ABG Chloride (98-107) mmol/L ABG Glucose (65-95) mg/dL Chloride (98-107) mmol/L Carbon Dioxide (22-30) mmol/L BUN (7-17) mg/dL Glucose (65-100) mg/dL POC Glucose 149 H (70-105) mg/dL Total Protein (6.3-8.2) g/dL Albumin (3.9-5) g/dL Arterial Blood Glucose (65-95) mg/dL 12/31/20 12/31/20 12/31/20 Range/Units 00:33 06:33 11:17 WBC (4.5-11.0) K/mm3 RBC (3.65-5.03) M/mm3 Hgb (10.1-14.3) gm/dl Hct (30.3-42.9) % MCH (28-32) pg RDW (13.2-15.2) % PT (12.2-14.9) Sec. INR (0.87-1.13) APTT (24.2-36.6) Sec. POC ABG pO2 (83-108) mmHg ABG Hemoglobin (12.0-17.5) ABG Oxyhemoglobin (94-98) ABG Sodium (136.0-145.0) mmol/L ABG Chloride (98-107) mmol/L ABG Glucose (65-95) mg/dL Chloride (98-107) mmol/L Carbon Dioxide (22-30) mmol/L BUN (7-17) mg/dL Glucose (65-100) mg/dL POC Glucose 237 H 198 H 197 H (70-105) mg/dL Total Protein (6.3-8.2) g/dL Albumin (3.9-5) g/dL Arterial Blood Glucose (65-95) mg/dL
[2020-12-31 14:47] LABS: Albumin 2.5 g/dL (3.9-5); C-Reactive Protein 23.4 mg/dL (0.00-1.30); Calcium 9.6 mg/dL (8.4-10.2)
[2020-12-31 15:19] LABS: ABG HCO3 27.6 mmol/L (20.0-26.0); ABG PCO2 45.3 mm Hg; ABG PH 7.403 pH Units (7.350-7.450); ABG PO2 53.4 mm Hg (80.0-90.0)
[2020-12-31 15:20] LABS: ABG Base Excess 2.5 mmol/L (-2.0-3.0); ABG Methemoglobin 0.3 % (0.0-1.5); ABG Oxygen Saturation 86.4 % (95.0-99.0)
--- NOTE | 2020-12-31 16:00 | Progress Note ---
Assessment and Plan Acute hypercapnic respiratory failure Acute kidney injury Acute toxic metabolic encephalopathy. Acute hypoxemic respiratory failure on noninvasive ventilation Severe sepsis, presumably due to bilateral pneumonia Bilateral pneumonia, aspiration Possible urinary tract infections History of diabetes - trickle feed and check residuals q4h - continue on RTC NIV for now (await families final decision while transitioning to qhs only NIV as tolerated) - repeat CXR prn at this point - repeat ABG and address - continue care as below otherwise; - continue aspiration precautions (HOB > 40 degrees) - continue lung protective strategies - continue bronchodilators with pulmonary hygiene per RT - wean per pulmonary driven protocols otherwise - avoid nephrotoxins, renally dose all medications - continue to avoid benzodiazepine's, reduce the possibility of delirium - complete AB's per ID rec's - prn analgesia per CPOT score - Maintenance of sleep-wake cycle, avoid delirium - continue enteral nutritional support at goal rate as tolerated - G.I. & VTE prophylaxis - PT/OT/ROM exercises - continue mobility protocols for pressure ulcer prophylaxis - Monitor hemodynamics closely - continue other care per attending / other consultants - discharge planning ongoing concurrently COVID SPECIFIC INTERVENTIONS - Remdesivir as per ID/Pulmonary developed protocols - continue systemic steroids for severe COVID-19 infection empirically - follow repeat COVID tests results - zinc and vitamin C supplementation - Monitor inflammatory markers per facility protocol - ferritin, Ddimer, CRP - therapeutic anticoagulation per system Protocol based on d-dimer and clinical considerations - Continue contact and airborne isolation .... Re-evaluate in am & prn CONDITION: CRITICAL PROGNOSIS: GUARDED CODE STATUS: FULL CODE The high probability of a clinically significant, sudden or life-threatening deterioration of the [respiratory, cardiovascular, GI & neurologic] system(s) required my full and direct attention, intervention and personal management. The aggregate critical care time was [35] minutes without overlap. Time includes spent on; [x] Data Review and interpretation [x] Patient assessment and monitoring of vital signs [x] Documentation [x] Medication orders and management Subjective Date of service: 12/31/20 Principal diagnosis: Ac. hypercapnic and hypoxemic resp failure; MOUNA; Severe sepsis; COVID-19 Interval history: Patient is seen today for: Acute hypercapnic and hypoxemic respiratory failure; Acute kidney injury; Acute toxic metabolic encephalopathy; Severe sepsis; Bilateral pneumonia; COVID-19 infection Seen and examined at bedside; 24hour events reviewed; nursing and respiratory care staff consulted; no adverse overnight events reported to me; resting in bed; remains AVAPS dependent and FiO2 actually increased to 100% overnight; no emesis or overt aspiration reported; no high grade fevers Objective Vital Signs - 12hr 12/31/20 12/31/20 12/31/20 04:00 05:00 06:00 Temperature 98.2 F Pulse Rate 95 H 102 H 96 H Respiratory 32 H 33 H 33 H Rate Blood Pressure 160/74 139/69 155/60 O2 Sat by Pulse 93 Oximetry 12/31/20 12/31/20 12/31/20 06:10 07:00 08:00 Temperature 98.2 F Pulse Rate 102 H 99 H 95 H Respiratory 40 H 33 H 30 H Rate Blood Pressure 168/72 130/106 161/79 O2 Sat by Pulse 92 86 94 Oximetry 12/31/20 12/31/20 12/31/20 09:20 09:36 09:37 Temperature Pulse Rate 95 H 92 H 95 H Respiratory 30 H Rate Blood Pressure 143/64 143/64 143/64 O2 Sat by Pulse 93 Oximetry 12/31/20 12/31/20 12:00 13:28 Temperature 98.5 F Pulse Rate 90 Respiratory 38 H Rate Blood Pressure 149/71 O2 Sat by Pulse 86 Oximetry Constitutional: appears uncomfortable (less so), other (elderly obese female with mildly increased respiratory effort at rest on NIV) Eyes: non-icteric ENT: oropharynx moist, other (BIPAP FFM) Neck: supple, no lymphadenopathy, no JVD Effort: mildly labored Ascultation: Bilateral: diminished breath sounds, rhonchi Percussion: Bilateral: not dull Cardiovascular: regular rate and rhythm Gastrointestinal: normoactive bowel sounds, soft, non-tender, non-distended (protuberant) Integumentary: normal Extremities: no cyanosis, no edema, pink and warm, pulses normal Neurologic: non-focal exam (grossly), unable to assess Psychiatric: other (unable to assess re: AMS) CBC and BMP: 12/31/20 14:58 12/31/20 Unknown ABG, PT/INR, D-dimer: ABG ABG pH 7.403 pH Units (7.350-7.450) 12/31/20 14:59 POC ABG pCO2 40.1 mmHg (32.0-48.0) 12/30/20 15:20 ABG pCO2 45.3 mm Hg 12/31/20 14:59 POC ABG pO2 55.0 mmHg (83-108) L 12/30/20 15:20 ABG pO2 53.4 mm Hg (80.0-90.0) L 12/31/20 14:59 POC ABG HCO3 26.1 12/30/20 15:20 ABG O2 Saturation 86.4 % (95.0-99.0) L 12/31/20 14:59 PT/INR, D-dimer PT 18.1 Sec. (12.2-14.9) H 12/30/20 23:43 INR 1.43 (0.87-1.13) H 12/30/20 23:43 D-Dimer 2475.06 ng/mlDDU (0-234) H 12/29/20 19:08 Abnormal lab findings: Abnormal Labs 12/25/20 12/25/20 12/26/20 11:35 11:35 15:02 WBC 20.1 H RBC Hgb Hct MCV 77 L MCH 26 L RDW 19.1 H Plt Count 473 H Lymph % (Auto) [place] % (Auto) Lymph # (Auto) [place] # (Auto) Seg Neutrophils % Seg Neuts % (Manual) 89.0 H Lymphocytes % (Manual) 5.0 L Monocytes % (Manual) Seg Neutrophils # Seg Neutrophils # Man 17.9 H Lymphocytes # (Manual) 1.0 L Monocytes # (Manual) PT INR APTT D-Dimer ABG pH POC ABG pCO2 POC ABG pO2 ABG pO2 ABG HCO3 ABG O2 Saturation ABG Hemoglobin ABG Oxyhemoglobin ABG Sodium ABG Chloride ABG Glucose Oxyhemoglobin Carboxyhemoglobin Sodium 122 L Potassium 2.7 L* Chloride 80.2 L Carbon Dioxide 21 L BUN 35 H Creatinine Glucose 154 H POC Glucose 161 H Phosphorus Ferritin Lactate Dehydrogenase C-Reactive Protein Total Protein Albumin 3.5 L Arterial Blood Glucose Coronavirus (PCR) 12/26/20 12/26/20 12/26/20 15:07 15:07 21:19 WBC 17.9 H RBC Hgb Hct MCV 78 L MCH 26 L RDW 19.3 H Plt Count Lymph % (Auto) [place] % (Auto) Lymph # (Auto) [place] # (Auto) Seg Neutrophils % Seg Neuts % (Manual) Lymphocytes % (Manual) Monocytes % (Manual) Seg Neutrophils # Seg Neutrophils # Man Lymphocytes # (Manual) Monocytes # (Manual) PT INR APTT D-Dimer ABG pH POC ABG pCO2 POC ABG pO2 ABG pO2 ABG HCO3 ABG O2 Saturation ABG Hemoglobin ABG Oxyhemoglobin ABG Sodium ABG Chloride ABG Glucose Oxyhemoglobin Carboxyhemoglobin Sodium 122 L Potassium 2.7 L* Chloride 82.7 L Carbon Dioxide BUN 19 H Creatinine Glucose 138 H POC Glucose 142 H Phosphorus Ferritin Lactate Dehydrogenase C-Reactive Protein Total Protein Albumin Arterial Blood Glucose Coronavirus (PCR) 12/27/20 12/27/20 12/27/20 05:10 05:10 06:52 WBC 21.7 H RBC Hgb Hct MCV 78 L MCH 26 L RDW 19.2 H Plt Count Lymph % (Auto) [place] % (Auto) Lymph # (Auto) [place] # (Auto) Seg Neutrophils % Seg Neuts % (Manual) 92.0 H Lymphocytes % (Manual) Monocytes % (Manual) 8.0 H Seg Neutrophils # Seg Neutrophils # Man 20.0 H Lymphocytes # (Manual) 0.0 L Monocytes # (Manual) 1.7 H PT INR APTT D-Dimer ABG pH POC ABG pCO2 POC ABG pO2 ABG pO2 ABG HCO3 ABG O2 Saturation ABG Hemoglobin ABG Oxyhemoglobin ABG Sodium ABG Chloride ABG Glucose Oxyhemoglobin Carboxyhemoglobin Sodium 128 L Potassium 2.8 L* Chloride 86.3 L Carbon Dioxide BUN 21 H Creatinine Glucose 147 H POC Glucose Phosphorus 1.50 L Ferritin Lactate Dehydrogenase C-Reactive Protein Total Protein Albumin Arterial Blood Glucose Coronavirus (PCR) 12/27/20 12/27/20 12/27/20 07:33 13:16 16:42 WBC RBC Hgb Hct MCV MCH RDW Plt Count Lymph % (Auto) [place] % (Auto) Lymph # (Auto) [place] # (Auto) Seg Neutrophils % Seg Neuts % (Manual) Lymphocytes % (Manual) Monocytes % (Manual) Seg Neutrophils # Seg Neutrophils # Man Lymphocytes # (Manual) Monocytes # (Manual) PT INR APTT D-Dimer ABG pH POC ABG pCO2 POC ABG pO2 ABG pO2 ABG HCO3 ABG O2 Saturation ABG Hemoglobin ABG Oxyhemoglobin ABG Sodium ABG Chloride ABG Glucose Oxyhemoglobin Carboxyhemoglobin Sodium Potassium Chloride Carbon Dioxide BUN Creatinine Glucose POC Glucose 163 H 165 H 124 H Phosphorus Ferritin Lactate Dehydrogenase C-Reactive Protein Total Protein Albumin Arterial Blood Glucose Coronavirus (PCR) 12/27/20 12/27/20 12/27/20 19:00 19:21 21:58 WBC RBC Hgb Hct MCV MCH RDW Plt Count Lymph % (Auto) [place] % (Auto) Lymph # (Auto) [place] # (Auto) Seg Neutrophils % Seg Neuts % (Manual) Lymphocytes % (Manual) Monocytes % (Manual) Seg Neutrophils # Seg Neutrophils # Man Lymphocytes # (Manual) Monocytes # (Manual) PT INR APTT D-Dimer ABG pH POC ABG pCO2 53.3 H POC ABG pO2 51.3 L ABG pO2 ABG HCO3 ABG O2 Saturation ABG Hemoglobin ABG Oxyhemoglobin 86.9 L ABG Sodium ABG Chloride 91.0 L ABG Glucose 143 H Oxyhemoglobin Carboxyhemoglobin Sodium Potassium Chloride Carbon Dioxide BUN Creatinine Glucose POC Glucose 141 H 137 H Phosphorus Ferritin Lactate Dehydrogenase C-Reactive Protein Total Protein Albumin Arterial Blood Glucose 143 H Coronavirus (PCR) 12/28/20 12/28/20 12/28/20 07:49 10:01 10:01 WBC 15.2 H RBC Hgb Hct MCV MCH 26 L RDW 19.5 H Plt Count Lymph % (Auto) 1.8 L [place] % (Auto) 8.2 H Lymph # (Auto) 0.3 L [place] # (Auto) 1.2 H Seg Neutrophils % 90.0 H Seg Neuts % (Manual) Lymphocytes % (Manual) Monocytes % (Manual) Seg Neutrophils # 13.6 H Seg Neutrophils # Man Lymphocytes # (Manual) Monocytes # (Manual) PT INR APTT D-Dimer ABG pH POC ABG pCO2 POC ABG pO2 ABG pO2 ABG HCO3 ABG O2 Saturation ABG Hemoglobin ABG Oxyhemoglobin ABG Sodium ABG Chloride ABG Glucose Oxyhemoglobin Carboxyhemoglobin Sodium 133 L Potassium Chloride 94.4 L Carbon Dioxide 31 H BUN 40 H Creatinine 1.6 H D Glucose 122 H POC Glucose 122 H Phosphorus Ferritin Lactate Dehydrogenase C-Reactive Protein Total Protein Albumin Arterial Blood Glucose Coronavirus (PCR) 12/28/20 12/28/20 12/28/20 12:11 12:15 13:15 WBC RBC Hgb Hct MCV MCH RDW Plt Count Lymph % (Auto) [place] % (Auto) Lymph # (Auto) [place] # (Auto) Seg Neutrophils % Seg Neuts % (Manual) Lymphocytes % (Manual) Monocytes % (Manual) Seg Neutrophils # Seg Neutrophils # Man Lymphocytes # (Manual) Monocytes # (Manual) PT INR APTT D-Dimer ABG pH 7.184 L POC ABG pCO2 80.7 H POC ABG pO2 76.0 L ABG pO2 ABG HCO3 ABG O2 Saturation ABG Hemoglobin 10.3 L ABG Oxyhemoglobin 92.7 L ABG Sodium 134.5 L ABG Chloride 96.0 L ABG Glucose 119 H Oxyhemoglobin Carboxyhemoglobin 0.3 L Sodium Potassium Chloride Carbon Dioxide BUN Creatinine Glucose POC Glucose 123 H Phosphorus Ferritin Lactate Dehydrogenase C-Reactive Protein 25.50 H Total Protein Albumin Arterial Blood Glucose 119 H Coronavirus (PCR) 12/28/20 12/29/20 12/29/20 18:09 09:25 17:24 WBC RBC Hgb Hct MCV MCH RDW Plt Count Lymph % (Auto) [place] % (Auto) Lymph # (Auto) [place] # (Auto) Seg Neutrophils % Seg Neuts % (Manual) Lymphocytes % (Manual) Monocytes % (Manual) Seg Neutrophils # Seg Neutrophils # Man Lymphocytes # (Manual) Monocytes # (Manual) PT INR APTT D-Dimer ABG pH POC ABG pCO2 POC ABG pO2 57.8 L ABG pO2 ABG HCO3 ABG O2 Saturation ABG Hemoglobin 10.2 L ABG Oxyhemoglobin 90.4 L ABG Sodium 134.4 L ABG Chloride ABG Glucose 98 H Oxyhemoglobin Carboxyhemoglobin 0.4 L Sodium Potassium Chloride Carbon Dioxide BUN Creatinine Glucose POC Glucose 109 H Phosphorus Ferritin Lactate Dehydrogenase C-Reactive Protein Total Protein Albumin Arterial Blood Glucose 98 H Coronavirus (PCR) Positive A 12/29/20 12/29/20 12/29/20 19:08 19:08 19:08 WBC RBC Hgb Hct MCV MCH RDW Plt Count Lymph % (Auto) [place] % (Auto) Lymph # (Auto) [place] # (Auto) Seg Neutrophils % Seg Neuts % (Manual) Lymphocytes % (Manual) Monocytes % (Manual) Seg Neutrophils # Seg Neutrophils # Man Lymphocytes # (Manual) Monocytes # (Manual) PT INR APTT D-Dimer 2475.06 H ABG pH POC ABG pCO2 POC ABG pO2 ABG pO2 ABG HCO3 ABG O2 Saturation ABG Hemoglobin ABG Oxyhemoglobin ABG Sodium ABG Chloride ABG Glucose Oxyhemoglobin Carboxyhemoglobin Sodium Potassium Chloride Carbon Dioxide BUN Creatinine Glucose 119 H POC Glucose Phosphorus Ferritin 486.0 H Lactate Dehydrogenase 386 H C-Reactive Protein 33.60 H Total Protein Albumin Arterial Blood Glucose Coronavirus (PCR) 12/29/20 12/30/20 12/30/20 22:06 04:55 07:38 WBC RBC 3.64 L Hgb 9.8 L Hct 29.9 L MCV MCH 27 L RDW 20.3 H Plt Count Lymph % (Auto) 3.5 L [place] % (Auto) 10.7 H Lymph # (Auto) 0.3 L [place] # (Auto) 1.0 H Seg Neutrophils % 85.5 H Seg Neuts % (Manual) Lymphocytes % (Manual) Monocytes % (Manual) Seg Neutrophils # 8.0 H Seg Neutrophils # Man Lymphocytes # (Manual) Monocytes # (Manual) PT INR APTT D-Dimer ABG pH POC ABG pCO2 POC ABG pO2 ABG pO2 ABG HCO3 ABG O2 Saturation ABG Hemoglobin ABG Oxyhemoglobin ABG Sodium ABG Chloride ABG Glucose Oxyhemoglobin Carboxyhemoglobin Sodium Potassium Chloride Carbon Dioxide BUN Creatinine Glucose POC Glucose 120 H 123 H Phosphorus Ferritin Lactate Dehydrogenase C-Reactive Protein Total Protein Albumin Arterial Blood Glucose Coronavirus (PCR) 12/30/20 12/30/20 12/30/20 07:38 11:49 15:20 WBC RBC Hgb Hct MCV MCH RDW Plt Count Lymph % (Auto) [place] % (Auto) Lymph # (Auto) [place] # (Auto) Seg Neutrophils % Seg Neuts % (Manual) Lymphocytes % (Manual) Monocytes % (Manual) Seg Neutrophils # Seg Neutrophils # Man Lymphocytes # (Manual) Monocytes # (Manual) PT INR APTT D-Dimer ABG pH POC ABG pCO2 POC ABG pO2 55.0 L ABG pO2 ABG HCO3 ABG O2 Saturation ABG Hemoglobin 9.4 L ABG Oxyhemoglobin 87.6 L ABG Sodium 148.7 H ABG Chloride 113.0 H ABG Glucose 166 H Oxyhemoglobin Carboxyhemoglobin Sodium Potassium 5.5 H D Chloride 109.4 H Carbon Dioxide BUN 38 H Creatinine Glucose 133 H POC Glucose 123 H Phosphorus Ferritin Lactate Dehydrogenase C-Reactive Protein Total Protein Albumin Arterial Blood Glucose 166 H Coronavirus (PCR) 12/30/20 12/30/20 12/30/20 15:28 17:31 23:43 WBC 14.3 H RBC 3.49 L Hgb 9.6 L Hct 29.1 L MCV MCH 27 L RDW 20.2 H Plt Count Lymph % (Auto) [place] % (Auto) Lymph # (Auto) [place] # (Auto) Seg Neutrophils % Seg Neuts % (Manual) Lymphocytes % (Manual) Monocytes % (Manual) Seg Neutrophils # Seg Neutrophils # Man Lymphocytes # (Manual) Monocytes # (Manual) PT INR APTT D-Dimer ABG pH POC ABG pCO2 POC ABG pO2 ABG pO2 ABG HCO3 ABG O2 Saturation ABG Hemoglobin ABG Oxyhemoglobin ABG Sodium ABG Chloride ABG Glucose Oxyhemoglobin Carboxyhemoglobin Sodium Potassium Chloride 111.2 H Carbon Dioxide 21 L BUN 41 H Creatinine Glucose 143 H POC Glucose 149 H Phosphorus Ferritin Lactate Dehydrogenase C-Reactive Protein Total Protein 5.7 L Albumin 2.3 L Arterial Blood Glucose Coronavirus (PCR) 12/30/20 12/31/20 12/31/20 23:43 00:33 06:33 WBC RBC Hgb Hct MCV MCH RDW Plt Count Lymph % (Auto) [place] % (Auto) Lymph # (Auto) [place] # (Auto) Seg Neutrophils % Seg Neuts % (Manual) Lymphocytes % (Manual) Monocytes % (Manual) Seg Neutrophils # Seg Neutrophils # Man Lymphocytes # (Manual) Monocytes # (Manual) PT 18.1 H INR 1.43 H APTT 23.0 L D-Dimer ABG pH POC ABG pCO2 POC ABG pO2 ABG pO2 ABG HCO3 ABG O2 Saturation ABG Hemoglobin ABG Oxyhemoglobin ABG Sodium ABG Chloride ABG Glucose Oxyhemoglobin Carboxyhemoglobin Sodium Potassium Chloride Carbon Dioxide BUN Creatinine Glucose POC Glucose 237 H 198 H Phosphorus Ferritin Lactate Dehydrogenase C-Reactive Protein Total Protein Albumin Arterial Blood Glucose Coronavirus (PCR) 12/31/20 12/31/20 12/31/20 11:17 14:59 Unknown WBC RBC Hgb Hct MCV MCH RDW Plt Count Lymph % (Auto) [place] % (Auto) Lymph # (Auto) [place] # (Auto) Seg Neutrophils % Seg Neuts % (Manual) Lymphocytes % (Manual) Monocytes % (Manual) Seg Neutrophils # Seg Neutrophils # Man Lymphocytes # (Manual) Monocytes # (Manual) PT INR APTT D-Dimer ABG pH POC ABG pCO2 POC ABG pO2 ABG pO2 53.4 L ABG HCO3 27.6 H ABG O2 Saturation 86.4 L ABG Hemoglobin ABG Oxyhemoglobin ABG Sodium ABG Chloride ABG Glucose Oxyhemoglobin 86.0 L Carboxyhemoglobin Sodium 149 H Potassium Chloride 113.5 H Carbon Dioxide BUN 49 H Creatinine Glucose 201 H POC Glucose 197 H Phosphorus Ferritin Lactate Dehydrogenase 392 H C-Reactive Protein 23.40 H Total Protein 5.8 L Albumin 2.5 L Arterial Blood Glucose Coronavirus (PCR) Chest x-ray: other (none today) Allied health notes reviewed: nursing
[2020-12-31 16:39] LABS: Hemoglobin 9.4 gm/dl (10.1-14.3); Mean Corpuscular HGB Conc 33 % (30-34); Mean Corpuscular Volume 88 fl (79-97); Platelet Count 292 K/mm3 (140-440); Red Blood Count 3.19 M/mm3 (3.65-5.03)
[2020-12-31 16:40] LABS: Red Cell Distribution Width 20.5 % (13.2-15.2)
--- NOTE | 2020-12-31 20:34 | Progress Note ---
<BRENDASitaDOMENICSarah - Last Filed: 12/31/20 20:37> Assessment and Plan Assessment and plan: 85 YO Female with HTN, DM, presents ED for generalized weakness and not eating and drinking well. In the ER patient found to have hyponatremia hypokalemia dehydration and physical debility. Patient admitted to the medical floor for further evaluation and management. Now developed respiratory failure with aspiration pneumonia and positive for COVID-19. Sepsis likely secondary to bilateral probable aspiration pneumonia Acute hypoxic respiratory failure, not POA COVID-19 infection Acute encephalopathy Leukocytosis Hypernatremia Elevated D-dimer Hyperchloremia Acute kidney injury Vascular dementia Hypertension Diabetes mellitus Physical debility -CCM, infectious disease, physical therapy consulted, appreciate recommendations -COVID-19 PCR positive -Droplet/agitation precautions -Remdesivir, steroids -Wean supplemental oxygen as tolerated -Continue SPO2 monitoring -Pulmonary hygiene -Prone to sleep -Vitamin C/vitamin D/zinc -Eliquis twice daily -Empiric antibiotics -Tube feedings -Reglan scheduled -Daily weight, avoid nephrotoxic medication -SSI, Accu-Cheks every 6 -CXR shows bilateral pulmonary parenchymal disease which represent atypical pneumonia and aspiration -Trend CBC, CMP, COVID-19 inflammatory markers for risk stratification GI/DVT prophylaxis: Eliquis twice daily, PPI ,SCDs to bilateral lower extremity while in bed, Disposition: ICU, unable to transfer to inpatient hospice due to Covid 19 PCR positive DNR status The high probability of a clinically significant, sudden or life threatening deterioration of the system(TRANSCRIPTIONIST, CVS, respiratory, renal) required my full and direct attention, intervention and personal management. The aggregate critical care time was [45] minutes. This time is in addition to time spent performing reported procedures but includes the following: [x] Data Review and interpretation [x] Patient assessment and monitoring of vital signs [x] Documentation [x] Medication orders and management History Interval history: This 85-year-old female with hypertension, diabetes, vascular dementia without behavior disturbance, cerebral atherosclerosis presented to emergency department on 12/25 with complaints of feeling weak and confusion over the past 2 weeks with inability to walk and diminished oral intake work-up in the emergency department revealed a urinary tract infection complicated by sepsis, hyponatremia, hypokalemia and debility. On subsequent CXR patient noted to have aspiration pneumonia. Patient COVID-19 PCR is positive. Patient was admitted to the hospital service with consults to infectious disease, [facility]. 12/26/20; continue IV fluids. Resume home meds, continue consistent carb with sliding scale insulin. Start on nutritional supplement as pt is Having limited oral intake. PT eval, discussed with shelter case manager for hospice placement. 12/27/20; white count remains elevated, no clear source of infection yet. Continue to replete potassium-today K was 2.8. patient spiking fever, will consult ID. 12/28/20; Discussed with patient's daughter and pt did not have covid vaccine yet. family also denies any h/o dementia, will order COVID test. patient o/n placed on BIPAP and cxr showing consolidation. transferred to ICU. Consult CC, ID following. cont gentle hydration. Family wants to keep the patient full code 12/29/20; Positive for COVID, consult ID. family wants hospice and DNR, But they also want to cont with treatment for COVID. Start on steroid, will order remdesivir if Cr level improves. 12/30/20: We will initiate on remdesivir as renal function has improved. Treat hyperkalemia with Kayexalate bicarbonate and calcium gluconate. Continue dexamethasone and BiPAP. Unable to place for inpatient hospice as patient is Covid positive. But family also wished to continue treatment for COVID-19. D-dimer noted to be elevated -we will initiate on therapeutic dose of Eliquis. Continue to monitor H&H. Will start on tube feeding, continue gentle IV fluid hydration with D5 normal saline. 12/31: Patient remains on continuous BiPAP and is on tube feedings with scheduled Reglan to prevent aspiration per [facility]. Patient has improving leukocytosis and D-dimer. Patient has hypernatremia and hyperchloremia today with slight improvement to creatinine to 1.1 from 1.2. Patient is hyperglycemic and long- acting insulin has been adjusted. We will continue to monitor LFTs while on remdesivir. Patient is not a candidate for inpatient hospice due to positive COVID-19 and only option will be home hospice which will be discussed by case management with family. Hospitalist Physical - Constitutional Vitals: Temp Pulse Resp BP Pulse Ox 98.8 F 85 53 H 156/73 86 12/31/20 20:00 12/31/20 20:14 12/31/20 20:14 12/31/20 20:14 12/31/20 20:14 General appearance: Present: mild distress, other - EENT Eyes: Present: PERRL, EOM intact - Neck Neck: Present: normal ROM - Respiratory Respiratory effort: normal Respiratory: bilateral: diminished - Cardiovascular Rhythm: regular Heart Sounds: Present: S1 & S2. Absent: systolic murmur, diastolic murmur - Extremities Extremities: no ischemia, pulses intact, pulses symmetrical, No edema, normal temperature, normal color Peripheral Pulses: within normal limits - Abdominal General gastrointestinal: soft, non-tender, non-distended, normal bowel sounds - Integumentary Integumentary: Present: warm, dry - Psychiatric Psychiatric: cooperative - Neurologic Neurologic: CNII-XII intact, no focal deficits, moves all extremities - Allied Health Allied health notes reviewed: nursing, social work Results - Labs CBC & Chem 7: 12/31/20 14:58 12/31/20 Unknown Labs: Laboratory Last Values WBC 13.9 K/mm3 (4.5-11.0) H 12/31/20 14:58 RBC 3.19 M/mm3 (3.65-5.03) L 12/31/20 14:58 Hgb 9.4 gm/dl (10.1-14.3) L 12/31/20 14:58 Hct 28.0 % (30.3-42.9) L 12/31/20 14:58 MCV 88 fl (79-97) 12/31/20 14:58 MCH 29 pg (28-32) 12/31/20 14:58 MCHC 33 % (30-34) 12/31/20 14:58 RDW 20.5 % (13.2-15.2) H 12/31/20 14:58 Plt Count 292 K/mm3 (140-440) 12/31/20 14:58 Lymph % (Auto) 3.5 % (13.4-35.0) L 12/30/20 07:38 [place] % (Auto) 10.7 % (0.0-7.3) H 12/30/20 07:38 Eos % (Auto) 0.1 % (0.0-4.3) 12/30/20 07:38 Baso % (Auto) 0.2 % (0.0-1.8) 12/30/20 07:38 Lymph # (Auto) 0.3 K/mm3 (1.2-5.4) L 12/30/20 07:38 [place] # (Auto) 1.0 K/mm3 (0.0-0.8) H 12/30/20 07:38 Eos # (Auto) 0.0 K/mm3 (0.0-0.4) 12/30/20 07:38 Baso # (Auto) 0.0 K/mm3 (0.0-0.1) 12/30/20 07:38 Add Manual Diff Complete 12/27/20 05:10 Total Counted 100 12/27/20 05:10 Seg Neutrophils % 85.5 % (40.0-70.0) H 12/30/20 07:38 Seg Neuts % (Manual) 92.0 % (40.0-70.0) H 12/27/20 05:10 Band Neutrophils % 2.0 % 12/25/20 11:35 Lymphocytes % (Manual) 5.0 % (13.4-35.0) L 12/25/20 11:35 Monocytes % (Manual) 8.0 % (0.0-7.3) H 12/27/20 05:10 Nucleated RBC % Not Reportable 12/27/20 05:10 Seg Neutrophils # 8.0 K/mm3 (1.8-7.7) H 12/30/20 07:38 Seg Neutrophils # Man 20.0 K/mm3 (1.8-7.7) H 12/27/20 05:10 Band Neutrophils # 0.0 K/mm3 12/27/20 05:10 Lymphocytes # (Manual) 0.0 K/mm3 (1.2-5.4) L 12/27/20 05:10 Abs React Lymphs (Man) 0.0 K/mm3 12/27/20 05:10 Monocytes # (Manual) 1.7 K/mm3 (0.0-0.8) H 12/27/20 05:10 Eosinophils # (Manual) 0.0 K/mm3 (0.0-0.4) 12/27/20 05:10 Basophils # (Manual) 0.0 K/mm3 (0.0-0.1) 12/27/20 05:10 Metamyelocytes # 0.0 K/mm3 12/27/20 05:10 Myelocytes # 0.0 K/mm3 12/27/20 05:10 Promyelocytes # 0.0 K/mm3 12/27/20 05:10 Blast Cells # 0.0 K/mm3 12/27/20 05:10 WBC Morphology Not Reportable 12/27/20 05:10 Hypersegmented Neuts Not Reportable 12/27/20 05:10 Hyposegmented Neuts Not Reportable 12/27/20 05:10 Hypogranular Neuts Not Reportable 12/27/20 05:10 Smudge Cells Not Reportable 12/27/20 05:10 Toxic Granulation Not Reportable 12/27/20 05:10 Toxic Vacuolation Not Reportable 12/27/20 05:10 Dohle Bodies Not Reportable 12/27/20 05:10 Pelger-Huet Anomaly Not Reportable 12/27/20 05:10 Ernie Rods Not Reportable 12/27/20 05:10 Platelet Estimate Consistent w auto 12/27/20 05:10 Clumped Platelets Not Reportable 12/27/20 05:10 Plt Clumps, EDTA Not Reportable 12/27/20 05:10 Large Platelets Few 12/27/20 05:10 Giant Platelets Not Reportable 12/27/20 05:10 Platelet Satelliting Not Reportable 12/27/20 05:10 Plt Morphology Comment Not Reportable 12/27/20 05:10 RBC Morphology Not Reportable 12/27/20 05:10 Dimorphic RBCs Not Reportable 12/27/20 05:10 Polychromasia Not Reportable 12/27/20 05:10 Hypochromasia 1+ 12/27/20 05:10 Poikilocytosis Not Reportable 12/27/20 05:10 Anisocytosis 1+ 12/27/20 05:10 Microcytosis Not Reportable 12/27/20 05:10 Macrocytosis Not Reportable 12/27/20 05:10 Spherocytes Not Reportable 12/27/20 05:10 Pappenheimer Bodies Not Reportable 12/27/20 05:10 Sickle Cells Not Reportable 12/27/20 05:10 Target Cells Not Reportable 12/27/20 05:10 Tear Drop Cells Not Reportable 12/27/20 05:10 Ovalocytes Not Reportable 12/27/20 05:10 Helmet Cells Not Reportable 12/27/20 05:10 Fonseca-Boron Bodies Not Reportable 12/27/20 05:10 [place] Rings Not Reportable 12/27/20 05:10 [place] Cells Not Reportable 12/27/20 05:10 Bite Cells Not Reportable 12/27/20 05:10 Crenated Cell Not Reportable 12/27/20 05:10 Elliptocytes Not Reportable 12/27/20 05:10 Acanthocytes (Spur) Not Reportable 12/27/20 05:10 Rouleaux Not Reportable 12/27/20 05:10 Hemoglobin C Crystals Not Reportable 12/27/20 05:10 Schistocytes Not Reportable 12/27/20 05:10 Malaria parasites Not Reportable 12/27/20 05:10 Louis Bodies Not Reportable 12/27/20 05:10 Hem Pathologist Commnt No 12/27/20 05:10 PT 18.1 Sec. (12.2-14.9) H 12/30/20 23:43 INR 1.43 (0.87-1.13) H 12/30/20 23:43 APTT 23.0 Sec. (24.2-36.6) L 12/30/20 23:43 D-Dimer 1968.92 ng/mlDDU (0-234) H 12/31/20 14:58 ABG pH 7.403 pH Units (7.350-7.450) 12/31/20 14:59 POC ABG pCO2 40.1 mmHg (32.0-48.0) 12/30/20 15:20 ABG pCO2 45.3 mm Hg 12/31/20 14:59 POC ABG pO2 55.0 mmHg (83-108) L 12/30/20 15:20 ABG pO2 53.4 mm Hg (80.0-90.0) L 12/31/20 14:59 POC ABG HCO3 26.1 12/30/20 15:20 ABG HCO3 27.6 mmol/L (20.0-26.0) H 12/31/20 14:59 ABG O2 Saturation 86.4 % (95.0-99.0) L 12/31/20 14:59 POC ABG Base Excess 1.7 12/30/20 15:20 ABG Base Excess 2.5 mmol/L (-2.0-3.0) 12/31/20 14:59 ABG Hemoglobin 13.5 gm/dl (12.0-16.0) 12/31/20 14:59 ABG Oxyhemoglobin 87.6 (94-98) L 12/30/20 15:20 ABG Carboxyhemoglobin 0.2 % (0.0-5.0) 12/31/20 14:59 ABG Methemoglobin 0.3 % (0.0-1.5) 12/31/20 14:59 ABG Sodium 148.7 mmol/L (136.0-145.0) H 12/30/20 15:20 ABG Potassium 3.4 mmol/L (3.40-4.50) 12/30/20 15:20 ABG Chloride 113.0 mmol/L (98-107) H 12/30/20 15:20 ABG Glucose 166 mg/dL (65-95) H 12/30/20 15:20 Oxyhemoglobin 86.0 % (95.0-99.0) L 12/31/20 14:59 Carboxyhemoglobin 0.5 (0.5-1.5) 12/30/20 15:20 FiO2 100.0 % 12/31/20 14:59 FiO2 % 70.0 12/30/20 15:20 Sodium 149 mmol/L (137-145) H 12/31/20 Unknown Potassium 3.8 mmol/L (3.6-5.0) D 12/31/20 Unknown Chloride 113.5 mmol/L (98-107) H 12/31/20 Unknown Carbon Dioxide 27 mmol/L (22-30) 12/31/20 Unknown Anion Gap 12 mmol/L 12/31/20 Unknown BUN 49 mg/dL (7-17) H 12/31/20 Unknown Creatinine 1.1 mg/dL (0.6-1.2) 12/31/20 Unknown Estimated GFR 47 ml/min 12/31/20 Unknown BUN/Creatinine Ratio 45 % 12/31/20 Unknown Glucose 201 mg/dL (65-100) H 12/31/20 Unknown POC Glucose 182 mg/dL (70-105) H 12/31/20 17:54 Lactic Acid 1.20 mmol/L (0.7-2.0) 12/26/20 23:01 Calcium 9.6 mg/dL (8.4-10.2) 12/31/20 Unknown Phosphorus 1.50 mg/dL (2.5-4.5) L 12/27/20 06:52 Magnesium 2.20 mg/dL (1.7-2.3) 12/25/20 11:35 Ferritin 503.3 ng/mL (10.0-200.0) H 12/31/20 14:58 Total Bilirubin 0.30 mg/dL (0.1-1.2) 12/31/20 Unknown AST 20 units/L (5-40) 12/31/20 Unknown ALT 13 units/L (7-56) 12/31/20 Unknown Alkaline Phosphatase 62 units/L (35-129) 12/31/20 Unknown Lactate Dehydrogenase 392 units/L (91-180) H 12/31/20 Unknown C-Reactive Protein 23.40 mg/dL (0.00-1.30) H 12/31/20 Unknown Total Protein 5.8 g/dL (6.3-8.2) L 12/31/20 Unknown Albumin 2.5 g/dL (3.9-5) L 12/31/20 Unknown Albumin/Globulin Ratio 0.8 % 12/31/20 Unknown Procalcitonin 0.46 ng/mL (<0.15) 12/29/20 19:08 Arterial Blood Glucose 166 mg/dL (65-95) H 12/30/20 15:20 Arterial Blood Ionized Calcium 4.8 mg/dL (4.6-5.3) 12/30/20 15:20 Urine Color Shania (Yellow) 12/25/20 15:20 Urine Turbidity Clear (Clear) 12/25/20 15:20 Urine pH 6.0 (5.0-7.0) 12/25/20 15:20 Ur Specific [place] 1.018 (1.003-1.030) 12/25/20 15:20 Urine Protein >500 mg/dL (Negative) 12/25/20 15:20 Urine Glucose (UA) Neg mg/dL (Negative) 12/25/20 15:20 Urine Ketones Tr mg/dL (Negative) 12/25/20 15:20 Urine Blood Sm (Negative) 12/25/20 15:20 Urine Nitrite Neg (Negative) 12/25/20 15:20 Urine Bilirubin Neg (Negative) 12/25/20 15:20 Urine Urobilinogen 2.0 mg/dL (<2.0) 12/25/20 15:20 Ur Leukocyte Esterase Neg (Negative) 12/25/20 15:20 Urine WBC (Auto) 2.0 /HPF (0.0-6.0) 12/25/20 15:20 Urine RBC (Auto) 4.0 /HPF (0.0-6.0) 12/25/20 15:20 U Epithel Cells (Auto) 1.0 /HPF (0-13.0) 12/25/20 15:20 Urine Mucus Few /HPF 12/25/20 15:20 Random Vancomycin 5.7 ug/mL (0-40.0) 12/30/20 07:38 Coronavirus (PCR) Positive (Negative) A 12/29/20 09:25 Blood Type B POSITIVE 12/25/20 14:00 Antibody Screen Positive 12/25/20 14:00 Antibody Identification Anti-Fya 12/25/20 14:00 Microbiology: Microbiology 12/26/20 15:07 Peripheral/Venous Blood Culture - Final NO GROWTH AFTER 5 DAYS Fermin/IV: Voiding Method Indwelling Catheter Active Medications - Current Medications Current Medications: Generic Name Dose Route Start Last Admin Trade Name Freq PRN Reason Stop Dose Admin Acetaminophen 650 mg 12/25/20 14:30 12/27/20 04:34 Acetaminophen 325 Mg Tab PO 650 mg Q4H PRN Administration Pain MILD(1-3)/Fever >100.5/JAIME Acetaminophen 650 mg 12/28/20 10:00 12/28/20 10:01 Acetaminophen 650 Mg Rect Supp MT 650 mg Q4H PRN Administration Pain, Mild (1-3) Al Hydrox/Mg Hydrox/Simethicone 15 ml 12/27/20 15:33 12/27/20 16:49 Alum-Mag Hydroxide-Simethicone 320-716-04tr/5ml Oral Liqd 30 Ml PO 15 ml Q4H PRN Administration Indigestion Albuterol 2.5 mg 12/25/20 16:00 12/27/20 22:11 Albuterol 2.5 Mg/3 Ml Nebu IH 2.5 mg Q4HRT PRN Administration Shortness Of Breath Amlodipine Besylate 10 mg 12/26/20 14:00 12/31/20 09:36 Amlodipine 10 Mg Tab PO 10 mg DAILY LUCIUS Administration Lipase/Protease/Amylase 1 each 12/29/20 16:34 Lipase 10,500/Protease 25,000/Amylase 43,750 (Units) Dr Carrillo FEEDTUBE PRN PRN For Clogged Feeding Tube Apixaban 5 mg 12/30/20 22:00 12/31/20 09:36 Apixaban 5 Mg Tab PO 5 mg Q12HR LUCIUS Administration Protocol Ascorbic Acid 1,000 mg 12/30/20 22:00 12/31/20 09:42 Ascorbic Acid 500 Mg Tab PO 1,000 mg BID LUCIUS Administration Atenolol 50 mg 12/26/20 14:00 12/31/20 09:37 Atenolol 50 Mg Tab PO 50 mg DAILY LUCIUS Administration Cholecalciferol 5,000 unit 12/30/20 19:00 12/31/20 09:42 Cholecalciferol (Vit D3) 5,000 Unit Tab PO 5,000 unit DAILY LUCIUS Administration Dexamethasone 6 mg 12/29/20 18:00 12/31/20 18:32 Dexamethasone 4 Mg/Ml Vial IV 01/07/21 18:01 6 mg Q24H LUCIUS Administration Famotidine 20 mg 12/27/20 10:00 12/31/20 09:37 Famotidine 10 Mg Tab PO 20 mg DAILY LUCIUS Administration Fluoxetine HCl 20 mg 12/26/20 14:00 12/31/20 09:37 Fluoxetine 20 Mg Cap PO 20 mg DAILY LUCIUS Administration Hydralazine HCl 10 mg 12/30/20 22:37 Hydralazine 20 Mg/1 Ml Inj IV Q6H PRN Hypertension Hydromorphone HCl 0.25 mg 12/25/20 15:00 12/25/20 19:32 Hydromorphone 1 Mg/1 Ml Inj IV 0.25 mg Q4H PRN Administration Pain, Moderate (4-6) Cefepime HCl 1 gm in 100 mls @ 200 mls/hr 12/29/20 18:00 12/31/20 18:32 Cefepime/Ns 1 Gm/100 Ml IV 200 mls/hr Q12H LUCIUS Administration Protocol Vancomycin HCl 1,250 mg/ 275 mls @ 166.667 mls/hr 12/30/20 10:00 12/31/20 09: 41 Sodium Chloride IV 166.667 mls/hr Q24H LUCIUS Administration REMDESIVIR 100 mg/ Sodium 250 mls @ 500 mls/hr 12/31/20 21:00 Chloride IV 01/03/21 21:29 Q24HR@2100 [facility] Insulin Human Regular 0 units 12/31/20 12:00 12/31/20 18:33 Insulin Regular, Human 100 Units/1 Ml SUB-Q 3 units Q6HR LUCIUS Administration Protocol Isosorbide Mononitrate 20 mg 12/31/20 09:00 12/31/20 15:14 Isosorbide Mononitrate 20 Mg Tab PO 20 mg TID LUCIUS Administration Metoclopramide HCl 5 mg 12/30/20 16:00 12/31/20 09:37 Metoclopramide 10 Mg/2 Ml Inj IV 5 mg BID LUCIUS Administration Ondansetron HCl 4 mg 12/25/20 15:00 12/27/20 08:54 Ondansetron 4 Mg/2 Ml Inj IV 4 mg Q8H PRN Administration Nausea And Vomiting Simple Syrup 15 ml 12/29/20 16:34 Simple Syrup 15 Ml FEEDTUBE PRN PRN Hypoglycemia Simple Syrup 30 ml 12/29/20 16:34 Simple Syrup 15 Ml FEEDTUBE PRN PRN Hypoglycemia Sodium Bicarbonate 325 mg 12/29/20 16:34 Sodium Bicarbonate 325 Mg Tab FEEDTUBE PRN PRN For Clogged Feeding Tube Sodium Chloride 10 ml 12/25/20 22:00 12/31/20 09:37 Sodium Chloride 0.9% 10 Ml Flush Syringe IV 10 ml BID LUCIUS Administration Sodium Chloride 10 ml 12/25/20 13:55 Sodium Chloride 0.9% 10 Ml Flush Syringe IV 01/05/21 13:54 PRN PRN LINE FLUSH Sodium Chloride 50 ml 12/30/20 12:00 12/30/20 11:43 Sodium Chloride 0.9% 50 Ml Ivpb IV 01/03/21 21:01 50 ml Q24HR@2100 LUCIUS Administration Zinc Sulfate 220 mg 12/30/20 22:00 12/31/20 09:42 Zinc Sulfate 220 Mg Cap PO 220 mg BID LUCIUS Administration Nutrition/Malnutrition Assess - Dietary Evaluation Nutrition/Malnutrition Findings: Nutrition Notes Start: 12/26/20 14:05 Freq: Status: Active Protocol: Document 12/30/20 08:27 (Rec: 12/30/20 08:34 [email or web address]) Nutrition Notes Need for Assessment generated from: MD Order Initial or Follow up Reassessment Current Diagnosis Diabetes,Sepsis,Hypertension Other Pertinent Diagnosis dementia, UTI, COVID(+) Current Diet TF Labs/Tests Reviewed Pertinent Medications D5NS at 75 ml/hr Height 5 ft 3 in Weight 76.9 kg [place] Body Weight (kg) 52.27 BMI 30.0 Weight Status Obese Subjective/Other Information MD consult for TF. Pt on bipap . Pt with dobhoff. Burn Absent Trauma Absent GI Symptoms None Current % PO Negligible Minimum of two criteria No Energy Intake (non-severe) <75% Estimated Energy Requirement >7 days #2 Nutrition Diagnosis Increased nutrient needs ( specify in comment below) Diagnosis Progress(for reassessment Continues documentation) #1 Nutrition Diagnosis Inadequate oral intake As Evidenced by Signs and Symptoms pt now on bipap with dobhoff Diagnosis Progress(for reassessment Worsened documentation) Is patient on ventilator? No Is Patient Ambulatory and/or Out of Bed No REE-([facility]-confined to bed) 1426.992 Kcal/Kg value to use for calculation 18 Approximate Energy Requirements Using 1384 kcal/Kg Calculation Used for Recommendations Kcal/kg Additional Notes Protein: (>2g IBW) >104g Fluid: 1 ml/kcal or per MD Nutrition Intervention Change Diet Order: Start TF Nutrition Support: Glucerna 1.2 at 45 ml/hr Flush 75 ml q4h Kcal 1,296 Protein (gm) 65 Carbohydrates (gm) 124 Fat (gm) 65 Fluid (mL) 869 Fiber (gm) 0 Add Supplement/Snack (indicate name/kcal D/c /protein ) Goal #1 Meet at least 75% of protein and energy needs via TF Anticipated Discharge Needs: Unable to determine at this time Follow-Up By: 01/01/21 Additional Comments FU for TF start/tolerance <TYRON GIBSON - Last Filed: 01/01/21 07:04> Assessment and Plan Assessment and plan: Patient seen and examined, agree with provider as outlined above. Spoke with family, updated them on the patient's disposition at this time. Hospitalist Physical - Constitutional Vitals: Temp Pulse Resp BP Pulse Ox 98.9 F 92 H 35 H 148/76 88 01/01/21 03:27 01/01/21 06:00 01/01/21 06:00 01/01/21 06:00 01/01/21 06:00 Results - Labs CBC & Chem 7: 12/31/20 14:58 12/31/20 Unknown Labs: Laboratory Last Values WBC 13.9 K/mm3 (4.5-11.0) H 12/31/20 14:58 RBC 3.19 M/mm3 (3.65-5.03) L 12/31/20 14:58 Hgb 9.4 gm/dl (10.1-14.3) L 12/31/20 14:58 Hct 28.0 % (30.3-42.9) L 12/31/20 14:58 MCV 88 fl (79-97) 12/31/20 14:58 MCH 29 pg (28-32) 12/31/20 14:58 MCHC 33 % (30-34) 12/31/20 14:58 RDW 20.5 % (13.2-15.2) H 12/31/20 14:58 Plt Count 292 K/mm3 (140-440) 12/31/20 14:58 Lymph % (Auto) 3.5 % (13.4-35.0) L 12/30/20 07:38 [place] % (Auto) 10.7 % (0.0-7.3) H 12/30/20 07:38 Eos % (Auto) 0.1 % (0.0-4.3) 12/30/20 07:38 Baso % (Auto) 0.2 % (0.0-1.8) 12/30/20 07:38 Lymph # (Auto) 0.3 K/mm3 (1.2-5.4) L 12/30/20 07:38 [place] # (Auto) 1.0 K/mm3 (0.0-0.8) H 12/30/20 07:38 Eos # (Auto) 0.0 K/mm3 (0.0-0.4) 12/30/20 07:38 Baso # (Auto) 0.0 K/mm3 (0.0-0.1) 12/30/20 07:38 Add Manual Diff Complete 12/27/20 05:10 Total Counted 100 12/27/20 05:10 Seg Neutrophils % 85.5 % (40.0-70.0) H 12/30/20 07:38 Seg Neuts % (Manual) 92.0 % (40.0-70.0) H 12/27/20 05:10 Band Neutrophils % 2.0 % 12/25/20 11:35 Lymphocytes % (Manual) 5.0 % (13.4-35.0) L 12/25/20 11:35 Monocytes % (Manual) 8.0 % (0.0-7.3) H 12/27/20 05:10 Nucleated RBC % Not Reportable 12/27/20 05:10 Seg Neutrophils # 8.0 K/mm3 (1.8-7.7) H 12/30/20 07:38 Seg Neutrophils # Man 20.0 K/mm3 (1.8-7.7) H 12/27/20 05:10 Band Neutrophils # 0.0 K/mm3 12/27/20 05:10 Lymphocytes # (Manual) 0.0 K/mm3 (1.2-5.4) L 12/27/20 05:10 Abs React Lymphs (Man) 0.0 K/mm3 12/27/20 05:10 Monocytes # (Manual) 1.7 K/mm3 (0.0-0.8) H 12/27/20 05:10 Eosinophils # (Manual) 0.0 K/mm3 (0.0-0.4) 12/27/20 05:10 Basophils # (Manual) 0.0 K/mm3 (0.0-0.1) 12/27/20 05:10 Metamyelocytes # 0.0 K/mm3 12/27/20 05:10 Myelocytes # 0.0 K/mm3 12/27/20 05:10 Promyelocytes # 0.0 K/mm3 12/27/20 05:10 Blast Cells # 0.0 K/mm3 12/27/20 05:10 WBC Morphology Not Reportable 12/27/20 05:10 Hypersegmented Neuts Not Reportable 12/27/20 05:10 Hyposegmented Neuts Not Reportable 12/27/20 05:10 Hypogranular Neuts Not Reportable 12/27/20 05:10 Smudge Cells Not Reportable 12/27/20 05:10 Toxic Granulation Not Reportable 12/27/20 05:10 Toxic Vacuolation Not Reportable 12/27/20 05:10 Dohle Bodies Not Reportable 12/27/20 05:10 Pelger-Huet Anomaly Not Reportable 12/27/20 05:10 Ernie Rods Not Reportable 12/27/20 05:10 Platelet Estimate Consistent w auto 12/27/20 05:10 Clumped Platelets Not Reportable 12/27/20 05:10 Plt Clumps, EDTA Not Reportable 12/27/20 05:10 Large Platelets Few 12/27/20 05:10 Giant Platelets Not Reportable 12/27/20 05:10 Platelet Satelliting Not Reportable 12/27/20 05:10 Plt Morphology Comment Not Reportable 12/27/20 05:10 RBC Morphology Not Reportable 12/27/20 05:10 Dimorphic RBCs Not Reportable 12/27/20 05:10 Polychromasia Not Reportable 12/27/20 05:10 Hypochromasia 1+ 12/27/20 05:10 Poikilocytosis Not Reportable 12/27/20 05:10 Anisocytosis 1+ 12/27/20 05:10 Microcytosis Not Reportable 12/27/20 05:10 Macrocytosis Not Reportable 12/27/20 05:10 Spherocytes Not Reportable 12/27/20 05:10 Pappenheimer Bodies Not Reportable 12/27/20 05:10 Sickle Cells Not Reportable 12/27/20 05:10 Target Cells Not Reportable 12/27/20 05:10 Tear Drop Cells Not Reportable 12/27/20 05:10 Ovalocytes Not Reportable 12/27/20 05:10 Helmet Cells Not Reportable 12/27/20 05:10 Fonseca-Boron Bodies Not Reportable 12/27/20 05:10 [place] Rings Not Reportable 12/27/20 05:10 Trina Cells Not Reportable 12/27/20 05:10 Bite Cells Not Reportable 12/27/20 05:10 Crenated Cell Not Reportable 12/27/20 05:10 Elliptocytes Not Reportable 12/27/20 05:10 Acanthocytes (Spur) Not Reportable 12/27/20 05:10 Rouleaux Not Reportable 12/27/20 05:10 Hemoglobin C Crystals Not Reportable 12/27/20 05:10 Schistocytes Not Reportable 12/27/20 05:10 Malaria parasites Not Reportable 12/27/20 05:10 Louis Bodies Not Reportable 12/27/20 05:10 Hem Pathologist Commnt No 12/27/20 05:10 PT 18.1 Sec. (12.2-14.9) H 12/30/20 23:43 INR 1.43 (0.87-1.13) H 12/30/20 23:43 APTT 23.0 Sec. (24.2-36.6) L 12/30/20 23:43 D-Dimer 1968.92 ng/mlDDU (0-234) H 12/31/20 14:58 ABG pH 7.403 pH Units (7.350-7.450) 12/31/20 14:59 POC ABG pCO2 40.1 mmHg (32.0-48.0) 12/30/20 15:20 ABG pCO2 45.3 mm Hg 12/31/20 14:59 POC ABG pO2 55.0 mmHg (83-108) L 12/30/20 15:20 ABG pO2 53.4 mm Hg (80.0-90.0) L 12/31/20 14:59 POC ABG HCO3 26.1 12/30/20 15:20 ABG HCO3 27.6 mmol/L (20.0-26.0) H 12/31/20 14:59 ABG O2 Saturation 86.4 % (95.0-99.0) L 12/31/20 14:59 POC ABG Base Excess 1.7 12/30/20 15:20 ABG Base Excess 2.5 mmol/L (-2.0-3.0) 12/31/20 14:59 ABG Hemoglobin 13.5 gm/dl (12.0-16.0) 12/31/20 14:59 ABG Oxyhemoglobin 87.6 (94-98) L 12/30/20 15:20 ABG Carboxyhemoglobin 0.2 % (0.0-5.0) 12/31/20 14:59 ABG Methemoglobin 0.3 % (0.0-1.5) 12/31/20 14:59 ABG Sodium 148.7 mmol/L (136.0-145.0) H 12/30/20 15:20 ABG Potassium 3.4 mmol/L (3.40-4.50) 12/30/20 15:20 ABG Chloride 113.0 mmol/L (98-107) H 12/30/20 15:20 ABG Glucose 166 mg/dL (65-95) H 12/30/20 15:20 Oxyhemoglobin 86.0 % (95.0-99.0) L 12/31/20 14:59 Carboxyhemoglobin 0.5 (0.5-1.5) 12/30/20 15:20 FiO2 100.0 % 12/31/20 14:59 FiO2 % 70.0 12/30/20 15:20 Sodium 149 mmol/L (137-145) H 12/31/20 Unknown Potassium 3.8 mmol/L (3.6-5.0) D 12/31/20 Unknown Chloride 113.5 mmol/L (98-107) H 12/31/20 Unknown Carbon Dioxide 27 mmol/L (22-30) 12/31/20 Unknown Anion Gap 12 mmol/L 12/31/20 Unknown BUN 49 mg/dL (7-17) H 12/31/20 Unknown Creatinine 1.1 mg/dL (0.6-1.2) 12/31/20 Unknown Estimated GFR 47 ml/min 12/31/20 Unknown BUN/Creatinine Ratio 45 % 12/31/20 Unknown Glucose 201 mg/dL (65-100) H 12/31/20 Unknown POC Glucose 192 mg/dL (70-105) H 01/01/21 05:29 Lactic Acid 1.20 mmol/L (0.7-2.0) 12/26/20 23:01 Calcium 9.6 mg/dL (8.4-10.2) 12/31/20 Unknown Phosphorus 1.50 mg/dL (2.5-4.5) L 12/27/20 06:52 Magnesium 2.20 mg/dL (1.7-2.3) 12/25/20 11:35 Ferritin 503.3 ng/mL (10.0-200.0) H 12/31/20 14:58 Total Bilirubin 0.30 mg/dL (0.1-1.2) 12/31/20 Unknown AST 20 units/L (5-40) 12/31/20 Unknown ALT 13 units/L (7-56) 12/31/20 Unknown Alkaline Phosphatase 62 units/L (35-129) 12/31/20 Unknown Lactate Dehydrogenase 392 units/L (91-180) H 12/31/20 Unknown C-Reactive Protein 23.40 mg/dL (0.00-1.30) H 12/31/20 Unknown Total Protein 5.8 g/dL (6.3-8.2) L 12/31/20 Unknown Albumin 2.5 g/dL (3.9-5) L 12/31/20 Unknown Albumin/Globulin Ratio 0.8 % 12/31/20 Unknown Procalcitonin 0.46 ng/mL (<0.15) 12/29/20 19:08 Arterial Blood Glucose 166 mg/dL (65-95) H 12/30/20 15:20 Arterial Blood Ionized Calcium 4.8 mg/dL (4.6-5.3) 12/30/20 15:20 Urine Color Shania (Yellow) 12/25/20 15:20 Urine Turbidity Clear (Clear) 12/25/20 15:20 Urine pH 6.0 (5.0-7.0) 12/25/20 15:20 Ur Specific [place] 1.018 (1.003-1.030) 12/25/20 15:20 Urine Protein >500 mg/dL (Negative) 12/25/20 15:20 Urine Glucose (UA) Neg mg/dL (Negative) 12/25/20 15:20 Urine Ketones Tr mg/dL (Negative) 12/25/20 15:20 Urine Blood Sm (Negative) 12/25/20 15:20 Urine Nitrite Neg (Negative) 12/25/20 15:20 Urine Bilirubin Neg (Negative) 12/25/20 15:20 Urine Urobilinogen 2.0 mg/dL (<2.0) 12/25/20 15:20 Ur Leukocyte Esterase Neg (Negative) 12/25/20 15:20 Urine WBC (Auto) 2.0 /HPF (0.0-6.0) 12/25/20 15:20 Urine RBC (Auto) 4.0 /HPF (0.0-6.0) 12/25/20 15:20 U Epithel Cells (Auto) 1.0 /HPF (0-13.0) 12/25/20 15:20 Urine Mucus Few /HPF 12/25/20 15:20 Random Vancomycin 5.7 ug/mL (0-40.0) 12/30/20 07:38 Coronavirus (PCR) Positive (Negative) A 12/29/20 09:25 Blood Type B POSITIVE 12/25/20 14:00 Antibody Screen Positive 12/25/20 14:00 Antibody Identification Anti-Fya 12/25/20 14:00 Microbiology: Microbiology 12/26/20 15:07 Peripheral/Venous Blood Culture - Final NO GROWTH AFTER 5 DAYS Fermin/IV: Voiding Method Indwelling Catheter Active Medications - Current Medications Current Medications: Generic Name Dose Route Start Last Admin Trade Name Freq PRN Reason Stop Dose Admin Acetaminophen 650 mg 12/25/20 14:30 12/27/20 04:34 Acetaminophen 325 Mg Tab PO 650 mg Q4H PRN Administration Pain MILD(1-3)/Fever >100.5/JAIME Acetaminophen 650 mg 12/28/20 10:00 12/28/20 10:01 Acetaminophen 650 Mg Rect Supp MT 650 mg Q4H PRN Administration Pain, Mild (1-3) Al Hydrox/Mg Hydrox/Simethicone 15 ml 12/27/20 15:33 12/27/20 16:49 Alum-Mag Hydroxide-Simethicone [id number]/5ml Oral Liqd 30 Ml PO 15 ml Q4H PRN Administration Indigestion Albuterol 2.5 mg 12/25/20 16:00 12/27/20 22:11 Albuterol 2.5 Mg/3 Ml Nebu IH 2.5 mg Q4HRT PRN Administration Shortness Of Breath Amlodipine Besylate 10 mg 12/26/20 14:00 12/31/20 09:36 Amlodipine 10 Mg Tab PO 10 mg DAILY LUCIUS Administration Lipase/Protease/Amylase 1 each 12/29/20 16:34 Lipase 10,500/Protease 25,000/Amylase 43,750 (Units) Dr Carrillo FEEDTUBE PRN PRN For Clogged Feeding Tube Apixaban 5 mg 12/30/20 22:00 12/31/20 21:47 Apixaban 5 Mg Tab PO 5 mg Q12HR LUCIUS Administration Protocol Ascorbic Acid 1,000 mg 12/30/20 22:00 12/31/20 21:47 Ascorbic Acid 500 Mg Tab PO 1,000 mg BID LUCIUS Administration Atenolol 50 mg 12/26/20 14:00 12/31/20 09:37 Atenolol 50 Mg Tab PO 50 mg DAILY LUCIUS Administration Cholecalciferol 5,000 unit 12/30/20 19:00 12/31/20 09:42 Cholecalciferol (Vit D3) 5,000 Unit Tab PO 5,000 unit DAILY LUCIUS Administration Dexamethasone 6 mg 12/29/20 18:00 12/31/20 18:32 Dexamethasone 4 Mg/Ml Vial IV 01/07/21 18:01 6 mg Q24H LUCIUS Administration Famotidine 20 mg 12/27/20 10:00 12/31/20 09:37 Famotidine 10 Mg Tab PO 20 mg DAILY LUCIUS Administration Fluoxetine HCl 20 mg 12/26/20 14:00 12/31/20 09:37 Fluoxetine 20 Mg Cap PO 20 mg DAILY LUCIUS Administration Hydralazine HCl 10 mg 12/30/20 22:37 Hydralazine 20 Mg/1 Ml Inj IV Q6H PRN Hypertension Hydromorphone HCl 0.25 mg 12/25/20 15:00 12/25/20 19:32 Hydromorphone 1 Mg/1 Ml Inj IV 0.25 mg Q4H PRN Administration Pain, Moderate (4-6) Cefepime HCl 1 gm in 100 mls @ 200 mls/hr 12/29/20 18:00 01/01/21 06:25 Cefepime/Ns 1 Gm/100 Ml IV 200 mls/hr Q12H LUCIUS Administration Protocol Vancomycin HCl 1,250 mg/ 275 mls @ 166.667 mls/hr 12/30/20 10:00 12/31/20 09:41 Sodium Chloride IV 166.667 mls/hr Q24H LUCIUS Administration REMDESIVIR 100 mg/ Sodium 250 mls @ 500 mls/hr 12/31/20 21:00 12/31/20 21:48 Chloride IV 01/03/21 21:29 500 mls/hr Q24HR@2100 LUCIUS Administration Insulin Human Regular 0 units 12/31/20 12:00 01/01/21 06:26 Insulin Regular, Human 100 Units/1 Ml SUB-Q 3 units Q6HR LUCIUS Administration Protocol Isosorbide Mononitrate 20 mg 12/31/20 09:00 12/31/20 21:46 Isosorbide Mononitrate 20 Mg Tab PO 20 mg TID LUCIUS Administration Metoclopramide HCl 5 mg 12/30/20 16:00 12/31/20 21:47 Metoclopramide 10 Mg/2 Ml Inj IV 5 mg BID LUCIUS Administration Ondansetron HCl 4 mg 12/25/20 15:00 12/27/20 08:54 Ondansetron 4 Mg/2 Ml Inj IV 4 mg Q8H PRN Administration Nausea And Vomiting Simple Syrup 15 ml 12/29/20 16:34 Simple Syrup 15 Ml FEEDTUBE PRN PRN Hypoglycemia Simple Syrup 30 ml 12/29/20 16:34 Simple Syrup 15 Ml FEEDTUBE PRN PRN Hypoglycemia Sodium Bicarbonate 325 mg 12/29/20 16:34 Sodium Bicarbonate 325 Mg Tab FEEDTUBE PRN PRN For Clogged Feeding Tube Sodium Chloride 10 ml 12/25/20 22:00 12/31/20 21:48 Sodium Chloride 0.9% 10 Ml Flush Syringe IV 10 ml BID LUCIUS Administration Sodium Chloride 10 ml 12/25/20 13:55 Sodium Chloride 0.9% 10 Ml Flush Syringe IV 01/05/21 13:54 PRN PRN LINE FLUSH Sodium Chloride 50 ml 12/30/20 12:00 12/31/20 21:48 Sodium Chloride 0.9% 50 Ml Ivpb IV 01/03/21 21:01 50 ml Q24HR@2100 LUCIUS Administration Zinc Sulfate 220 mg 12/30/20 22:00 12/31/20 21:47 Zinc Sulfate 220 Mg Cap PO 220 mg BID LUCIUS Administration Nutrition/Malnutrition Assess - Dietary Evaluation Nutrition/Malnutrition Findings: Nutrition Notes Start: 12/26/20 14:05 Freq: Status: Active Protocol: Document 12/30/20 08:27 (Rec: 12/30/20 08:34 [email or web address]) Nutrition Notes Need for Assessment generated from: MD Order Initial or Follow up Reassessment Current Diagnosis Diabetes,Sepsis,Hypertension Other Pertinent Diagnosis dementia, UTI, COVID(+) Current Diet TF Labs/Tests Reviewed Pertinent Medications D5NS at 75 ml/hr Height 5 ft 3 in Weight 76.9 kg [place] Body Weight (kg) 52.27 BMI 30.0 Weight Status Obese Subjective/Other Information MD consult for TF. Pt on bipap . Pt with dobhoff. Burn Absent Trauma Absent GI Symptoms None Current % PO Negligible Minimum of two criteria No Energy Intake (non-severe) <75% Estimated Energy Requirement >7 days #2 Nutrition Diagnosis Increased nutrient needs ( specify in comment below) Diagnosis Progress(for reassessment Continues documentation) #1 Nutrition Diagnosis Inadequate oral intake As Evidenced by Signs and Symptoms pt now on bipap with dobhoff Diagnosis Progress(for reassessment Worsened documentation) Is patient on ventilator? No Is Patient Ambulatory and/or Out of Bed No REE-([place]-St. Jeor-confined to bed) 1426.992 Kcal/Kg value to use for calculation 18 Approximate Energy Requirements Using 1384 kcal/Kg Calculation Used for Recommendations Kcal/kg Additional Notes Protein: (>2g IBW) >104g Fluid: 1 ml/kcal or per MD Nutrition Intervention Change Diet Order: Start TF Nutrition Support: Glucerna 1.2 at 45 ml/hr Flush 75 ml q4h Kcal 1,296 Protein (gm) 65 Carbohydrates (gm) 124 Fat (gm) 65 Fluid (mL) 869 Fiber (gm) 0 Add Supplement/Snack (indicate name/kcal D/c /protein ) Goal #1 Meet at least 75% of protein and energy needs via TF Anticipated Discharge Needs: Unable to determine at this time Follow-Up By: 01/01/21 Additional Comments FU for TF start/tolerance
[2020-12-31] MEDS: SODIUM CHLORIDE 0.9% 50 ML IVPB IV SCH (21:48)
[2020-12-31] MEDS: REMDESIVIR 100 MG in SODIUM CHLORIDE 0.9% 250ML 250 ML IV SCH (21:48)
--- NOTE | 2021-01-01 00:58 | Vascular Lab Report ---
DUPLEX DOPPLER LOWER EXTREMITY VEINS, BILATERAL INDICATION / CLINICAL INFORMATION: Bilateral leg swelling. TECHNIQUE: Duplex doppler imaging was performed through the veins of both lower extremities using tony ous compression and other maneuvers. COMPARISON: None. FINDINGS: Right Common Femoral vein: Negative. Right Femoral vein: Negative. Right Popliteal vein: Negative. Right Calf veins: Negative. Left Common Femoral vein: Negative. Left Femoral vein: Negative. Left Popliteal vein: Negative. Left Calf veins: Not well visualized. Additional findings: There is an oval fluid collection in the right popliteal fossa measuring 5.4 cm. IMPRESSION: 1. No sonographic evidence for DVT in either lower extremity. Signer Name: Siri Her MD Signed: 01/01/2021 12:53 AM Workstation Name: [id number]
[2021-01-01] MEDS: CEFEPIME/NS 1 GM/100 ML 1 GM/100 ML BAG IV SCH ×2 (06:25→17:23)
[2021-01-01] MEDS: INSULIN REGULAR, HUMAN 100 UNITS/1 ML SUB-Q SCH ×4 (06:26→17:25)
[2021-01-01] MEDS: atenoloL 50 MG TAB PO SCH (09:18)
[2021-01-01] MEDS: ZINC SULFATE 220 MG CAP PO SCH ×2 (09:19→21:20)
[2021-01-01] MEDS: APIXABAN 5 MG TAB PO SCH ×2 (09:19→21:20)
[2021-01-01] MEDS: CHOLECALCIFEROL (VIT D3) 5,000 UNIT TAB PO SCH (09:19)
[2021-01-01] MEDS: amLODIPine 10 MG TAB PO SCH (09:20)
[2021-01-01] MEDS: METOCLOPRAMIDE 10 MG/2 ML INJ IV SCH ×2 (09:20→21:20)
[2021-01-01] MEDS: FLUoxetine 20 MG CAP PO SCH (09:20)
[2021-01-01] MEDS: FAMOTIDINE 10 MG TAB PO SCH (09:20)
[2021-01-01] MEDS: ASCORBIC ACID 500 MG TAB PO SCH ×2 (09:21→21:20)
[2021-01-01] MEDS: VANCOMYCIN 1,250 MG in SODIUM CHLORIDE 0.9% 250ML 250 ML IV SCH (12:45)
--- NOTE | 2021-01-01 14:00 | Progress Note ---
Assessment and Plan Acute hypercapnic respiratory failure Acute kidney injury Acute toxic metabolic encephalopathy. Acute hypoxemic respiratory failure on noninvasive ventilation Severe sepsis, presumably due to bilateral pneumonia Bilateral pneumonia, aspiration Possible urinary tract infections History of diabetes (I discussed her deterioration with her daughter and mentioned the home hospice option; she is amenable to that and wants a call from case management & Hospice company about the kind of support she will get for home hospice) - begin low dose seroquel (50 mg bid) - hold tube feeds - increase free water flushes re: hypernatremia - continue on RTC NIV for now (await families final decision while transitioning to qhs only NIV as tolerated) - repeat CXR & ABG prn at this point - continue care as below otherwise; - continue aspiration precautions (HOB > 40 degrees) - continue lung protective strategies - continue bronchodilators with pulmonary hygiene per RT - wean per pulmonary driven protocols otherwise - avoid nephrotoxins, renally dose all medications - continue to avoid benzodiazepine's, reduce the possibility of delirium - complete AB's per ID rec's - prn analgesia per CPOT score - Maintenance of sleep-wake cycle, avoid delirium - continue enteral nutritional support at goal rate as tolerated - G.I. & VTE prophylaxis - PT/OT/ROM exercises - continue mobility protocols for pressure ulcer prophylaxis - Monitor hemodynamics closely - continue other care per attending / other consultants - discharge planning ongoing concurrently COVID SPECIFIC INTERVENTIONS - Remdesivir as per ID/Pulmonary developed protocols - continue systemic steroids for severe COVID-19 infection empirically - follow repeat COVID tests results - zinc and vitamin C supplementation - Monitor inflammatory markers per facility protocol - ferritin, Ddimer, CRP - therapeutic anticoagulation per system Protocol based on d-dimer and clinical considerations - Continue contact and airborne isolation .... Re-evaluate in am & prn CONDITION: CRITICAL PROGNOSIS: GUARDED CODE STATUS: FULL CODE The high probability of a clinically significant, sudden or life-threatening deterioration of the [respiratory, cardiovascular, GI & neurologic] system(s) required my full and direct attention, intervention and personal management. The aggregate critical care time was [45] minutes without overlap. Time includes sp ent on; [x] Data Review and interpretation [x] Patient assessment and monitoring of vital signs [x] Documentation [x] Medication orders and management Subjective Date of service: 01/01/21 Principal diagnosis: Ac. hypercapnic and hypoxemic resp failure; MOUNA; Severe sepsis; COVID-19 Interval history: Patient is seen today for: Acute hypercapnic and hypoxemic respiratory failure; Acute kidney injury; Acute toxic metabolic encephalopathy; Severe sepsis; Bilateral pneumonia; COVID-19 infection Seen and examined at bedside; 24hour events reviewed; nursing and respiratory care staff consulted; no adverse overnight events reported to me; resting in bed; remains AVAPS dependent work of breathing is increased today; no emesis or overt aspiration; afebrile Objective Vital Signs - 12hr 01/01/21 01/01/21 01/01/21 03:00 03:27 04:00 Temperature 98.9 F Pulse Rate 81 92 H Pulse Rate [ 84 From Monitor] Respiratory 32 H 32 H Rate Blood Pressure 134/64 134/64 O2 Sat by Pulse 92 87 Oximetry 01/01/21 01/01/21 01/01/21 05:00 05:38 06:00 Temperature Pulse Rate 89 88 92 H Pulse Rate [ From Monitor] Respiratory 35 H 33 H 35 H Rate Blood Pressure 148/76 148/76 148/76 O2 Sat by Pulse 86 92 88 Oximetry 01/01/21 01/01/21 01/01/21 07:00 08:00 09:00 Temperature 97.5 F L Pulse Rate 98 H 103 H 95 H Pulse Rate [ 98 H From Monitor] Respiratory 31 H 37 H 35 H Rate Blood Pressure 163/62 146/63 162/69 O2 Sat by Pulse 87 84 88 Oximetry 01/01/21 01/01/21 01/01/21 09:18 09:20 10:00 Temperature Pulse Rate 87 96 H 78 Pulse Rate [ From Monitor] Respiratory 35 H 33 H Rate Blood Pressure 162/69 162/69 136/64 O2 Sat by Pulse 88 89 Oximetry 01/01/21 01/01/21 01/01/21 11:00 12:00 13:00 Temperature Pulse Rate 95 H 87 78 Pulse Rate [ 88 From Monitor] Respiratory 35 H 29 H 29 H Rate Blood Pressure 155/66 156/65 140/60 O2 Sat by Pulse 85 85 84 Oximetry Constitutional: appears uncomfortable (less so), other (elderly obese female with mildly increased respiratory effort at rest on NIV) Eyes: non-icteric ENT: oropharynx moist, other (BIPAP FFM) Neck: supple, no lymphadenopathy, no JVD Effort: mildly labored (moderately today) Ascultation: Bilateral: diminished breath sounds, rhonchi Percussion: Bilateral: not dull Cardiovascular: regular rate and rhythm Gastrointestinal: normoactive bowel sounds, soft, non-tender, non-distended (protuberant) Integumentary: normal Extremities: no cyanosis, no edema, pink and warm, pulses normal Neurologic: non-focal exam (grossly), unable to assess Psychiatric: anxious, other (unable to assess re: AMS) CBC and BMP: 12/31/20 14:58 12/31/20 Unknown ABG, PT/INR, D-dimer: ABG ABG pH 7.403 pH Units (7.350-7.450) 12/31/20 14:59 POC ABG pCO2 40.1 mmHg (32.0-48.0) 12/30/20 15:20 ABG pCO2 45.3 mm Hg 12/31/20 14:59 POC ABG pO2 55.0 mmHg (83-108) L 12/30/20 15:20 ABG pO2 53.4 mm Hg (80.0-90.0) L 12/31/20 14:59 POC ABG HCO3 26.1 12/30/20 15:20 ABG O2 Saturation 86.4 % (95.0-99.0) L 12/31/20 14:59 PT/INR, D-dimer PT 18.1 Sec. (12.2-14.9) H 12/30/20 23:43 INR 1.43 (0.87-1.13) H 12/30/20 23:43 D-Dimer 1968.92 ng/mlDDU (0-234) H 12/31/20 14:58 Abnormal lab findings: Abnormal Labs 12/25/20 12/25/20 12/26/20 11:35 11:35 15:02 WBC 20.1 H RBC Hgb Hct MCV 77 L MCH 26 L RDW 19.1 H Plt Count 473 H Lymph % (Auto) Barnes % (Auto) Lymph # (Auto) Barnes # (Auto) Seg Neutrophils % Seg Neuts % (Manual) 89.0 H Lymphocytes % (Manual) 5.0 L Monocytes % (Manual) Seg Neutrophils # Seg Neutrophils # Man 17.9 H Lymphocytes # (Manual) 1.0 L Monocytes # (Manual) PT INR APTT D-Dimer ABG pH POC ABG pCO2 POC ABG pO2 ABG pO2 ABG HCO3 ABG O2 Saturation ABG Hemoglobin ABG Oxyhemoglobin ABG Sodium ABG Chloride ABG Glucose Oxyhemoglobin Carboxyhemoglobin Sodium 122 L Potassium 2.7 L* Chloride 80.2 L Carbon Dioxide 21 L BUN 35 H Creatinine Glucose 154 H POC Glucose 161 H Phosphorus Ferritin Lactate Dehydrogenase C-Reactive Protein Total Protein Albumin 3.5 L Arterial Blood Glucose Coronavirus (PCR) 12/26/20 12/26/20 12/26/20 15:07 15:07 21:19 WBC 17.9 H RBC Hgb Hct MCV 78 L MCH 26 L RDW 19.3 H Plt Count Lymph % (Auto) Barnes % (Auto) Lymph # (Auto) Barnes # (Auto) Seg Neutrophils % Seg Neuts % (Manual) Lymphocytes % (Manual) Monocytes % (Manual) Seg Neutrophils # Seg Neutrophils # Man Lymphocytes # (Manual) Monocytes # (Manual) PT INR APTT D-Dimer ABG pH POC ABG pCO2 POC ABG pO2 ABG pO2 ABG HCO3 ABG O2 Saturation ABG Hemoglobin ABG Oxyhemoglobin ABG Sodium ABG Chloride ABG Glucose Oxyhemoglobin Carboxyhemoglobin Sodium 122 L Potassium 2.7 L* Chloride 82.7 L Carbon Dioxide BUN 19 H Creatinine Glucose 138 H POC Glucose 142 H Phosphorus Ferritin Lactate Dehydrogenase C-Reactive Protein Total Protein Albumin Arterial Blood Glucose Coronavirus (PCR) 12/27/20 12/27/20 12/27/20 05:10 05:10 06:52 WBC 21.7 H RBC Hgb Hct MCV 78 L MCH 26 L RDW 19.2 H Plt Count Lymph % (Auto) Barnes % (Auto) Lymph # (Auto) Barnes # (Auto) Seg Neutrophils % Seg Neuts % (Manual) 92.0 H Lymphocytes % (Manual) Monocytes % (Manual) 8.0 H Seg Neutrophils # Seg Neutrophils # Man 20.0 H Lymphocytes # (Manual) 0.0 L Monocytes # (Manual) 1.7 H PT INR APTT D-Dimer ABG pH POC ABG pCO2 POC ABG pO2 ABG pO2 ABG HCO3 ABG O2 Saturation ABG Hemoglobin ABG Oxyhemoglobin ABG Sodium ABG Chloride ABG Glucose Oxyhemoglobin Carboxyhemoglobin Sodium 128 L Potassium 2.8 L* Chloride 86.3 L Carbon Dioxide BUN 21 H Creatinine Glucose 147 H POC Glucose Phosphorus 1.50 L Ferritin Lactate Dehydrogenase C-Reactive Protein Total Protein Albumin Arterial Blood Glucose Coronavirus (PCR) 12/27/20 12/27/20 12/27/20 07:33 13:16 16:42 WBC RBC Hgb Hct MCV MCH RDW Plt Count Lymph % (Auto) Barnes % (Auto) Lymph # (Auto) Barnes # (Auto) Seg Neutrophils % Seg Neuts % (Manual) Lymphocytes % (Manual) Monocytes % (Manual) Seg Neutrophils # Seg Neutrophils # Man Lymphocytes # (Manual) Monocytes # (Manual) PT INR APTT D-Dimer ABG pH POC ABG pCO2 POC ABG pO2 ABG pO2 ABG HCO3 ABG O2 Saturation ABG Hemoglobin ABG Oxyhemoglobin ABG Sodium ABG Chloride ABG Glucose Oxyhemoglobin Carboxyhemoglobin Sodium Potassium Chloride Carbon Dioxide BUN Creatinine Glucose POC Glucose 163 H 165 H 124 H Phosphorus Ferritin Lactate Dehydrogenase C-Reactive Protein Total Protein Albumin Arterial Blood Glucose Coronavirus (PCR) 12/27/20 12/27/20 12/27/20 19:00 19:21 21:58 WBC RBC Hgb Hct MCV MCH RDW Plt Count Lymph % (Auto) Barnes % (Auto) Lymph # (Auto) Barnes # (Auto) Seg Neutrophils % Seg Neuts % (Manual) Lymphocytes % (Manual) Monocytes % (Manual) Seg Neutrophils # Seg Neutrophils # Man Lymphocytes # (Manual) Monocytes # (Manual) PT INR APTT D-Dimer ABG pH POC ABG pCO2 53.3 H POC ABG pO2 51.3 L ABG pO2 ABG HCO3 ABG O2 Saturation ABG Hemoglobin ABG Oxyhemoglobin 86.9 L ABG Sodium ABG Chloride 91.0 L ABG Glucose 143 H Oxyhemoglobin Carboxyhemoglobin Sodium Potassium Chloride Carbon Dioxide BUN Creatinine Glucose POC Glucose 141 H 137 H Phosphorus Ferritin Lactate Dehydrogenase C-Reactive Protein Total Protein Albumin Arterial Blood Glucose 143 H Coronavirus (PCR) 12/28/20 12/28/20 12/28/20 07:49 10:01 10:01 WBC 15.2 H RBC Hgb Hct MCV MCH 26 L RDW 19.5 H Plt Count Lymph % (Auto) 1.8 L Barnes % (Auto) 8.2 H Lymph # (Auto) 0.3 L Barnes # (Auto) 1.2 H Seg Neutrophils % 90.0 H Seg Neuts % (Manual) Lymphocytes % (Manual) Monocytes % (Manual) Seg Neutrophils # 13.6 H Seg Neutrophils # Man Lymphocytes # (Manual) Monocytes # (Manual) PT INR APTT D-Dimer ABG pH POC ABG pCO2 POC ABG pO2 ABG pO2 ABG HCO3 ABG O2 Saturation ABG Hemoglobin ABG Oxyhemoglobin ABG Sodium ABG Chloride ABG Glucose Oxyhemoglobin Carboxyhemoglobin Sodium 133 L Potassium Chloride 94.4 L Carbon Dioxide 31 H BUN 40 H Creatinine 1.6 H D Glucose 122 H POC Glucose 122 H Phosphorus Ferritin Lactate Dehydrogenase C-Reactive Protein Total Protein Albumin Arterial Blood Glucose Coronavirus (PCR) 12/28/20 12/28/20 12/28/20 12:11 12:15 13:15 WBC RBC Hgb Hct MCV MCH RDW Plt Count Lymph % (Auto) Barnes % (Auto) Lymph # (Auto) Barnes # (Auto) Seg Neutrophils % Seg Neuts % (Manual) Lymphocytes % (Manual) Monocytes % (Manual) Seg Neutrophils # Seg Neutrophils # Man Lymphocytes # (Manual) Monocytes # (Manual) PT INR APTT D-Dimer ABG pH 7.184 L POC ABG pCO2 80.7 H POC ABG pO2 76.0 L ABG pO2 ABG HCO3 ABG O2 Saturation ABG Hemoglobin 10.3 L ABG Oxyhemoglobin 92.7 L ABG Sodium 134.5 L ABG Chloride 96.0 L ABG Glucose 119 H Oxyhemoglobin Carboxyhemoglobin 0.3 L Sodium Potassium Chloride Carbon Dioxide BUN Creatinine Glucose POC Glucose 123 H Phosphorus Ferritin Lactate Dehydrogenase C-Reactive Protein 25.50 H Total Protein Albumin Arterial Blood Glucose 119 H Coronavirus (PCR) 12/28/20 12/29/20 12/29/20 18:09 09:25 17:24 WBC RBC Hgb Hct MCV MCH RDW Plt Count Lymph % (Auto) Barnes % (Auto) Lymph # (Auto) Barnes # (Auto) Seg Neutrophils % Seg Neuts % (Manual) Lymphocytes % (Manual) Monocytes % (Manual) Seg Neutrophils # Seg Neutrophils # Man Lymphocytes # (Manual) Monocytes # (Manual) PT INR APTT D-Dimer ABG pH POC ABG pCO2 POC ABG pO2 57.8 L ABG pO2 ABG HCO3 ABG O2 Saturation ABG Hemoglobin 10.2 L ABG Oxyhemoglobin 90.4 L ABG Sodium 134.4 L ABG Chloride ABG Glucose 98 H Oxyhemoglobin Carboxyhemoglobin 0.4 L Sodium Potassium Chloride Carbon Dioxide BUN Creatinine Glucose POC Glucose 109 H Phosphorus Ferritin Lactate Dehydrogenase C-Reactive Protein Total Protein Albumin Arterial Blood Glucose 98 H Coronavirus (PCR) Positive A 12/29/20 12/29/20 12/29/20 19:08 19:08 19:08 WBC RBC Hgb Hct MCV MCH RDW Plt Count Lymph % (Auto) Barnes % (Auto) Lymph # (Auto) Barnes # (Auto) Seg Neutrophils % Seg Neuts % (Manual) Lymphocytes % (Manual) Monocytes % (Manual) Seg Neutrophils # Seg Neutrophils # Man Lymphocytes # (Manual) Monocytes # (Manual) PT INR APTT D-Dimer 2475.06 H ABG pH POC ABG pCO2 POC ABG pO2 ABG pO2 ABG HCO3 ABG O2 Saturation ABG Hemoglobin ABG Oxyhemoglobin ABG Sodium ABG Chloride ABG Glucose Oxyhemoglobin Carboxyhemoglobin Sodium Potassium Chloride Carbon Dioxide BUN Creatinine Glucose 119 H POC Glucose Phosphorus Ferritin 486.0 H Lactate Dehydrogenase 386 H C-Reactive Protein 33.60 H Total Protein Albumin Arterial Blood Glucose Coronavirus (PCR) 12/29/20 12/30/20 12/30/20 22:06 04:55 07:38 WBC RBC 3.64 L Hgb 9.8 L Hct 29.9 L MCV MCH 27 L RDW 20.3 H Plt Count Lymph % (Auto) 3.5 L Barnes % (Auto) 10.7 H Lymph # (Auto) 0.3 L Barnes # (Auto) 1.0 H Seg Neutrophils % 85.5 H Seg Neuts % (Manual) Lymphocytes % (Manual) Monocytes % (Manual) Seg Neutrophils # 8.0 H Seg Neutrophils # Man Lymphocytes # (Manual) Monocytes # (Manual) PT INR APTT D-Dimer ABG pH POC ABG pCO2 POC ABG pO2 ABG pO2 ABG HCO3 ABG O2 Saturation ABG Hemoglobin ABG Oxyhemoglobin ABG Sodium ABG Chloride ABG Glucose Oxyhemoglobin Carboxyhemoglobin Sodium Potassium Chloride Carbon Dioxide BUN Creatinine Glucose POC Glucose 120 H 123 H Phosphorus Ferritin Lactate Dehydrogenase C-Reactive Protein Total Protein Albumin Arterial Blood Glucose Coronavirus (PCR) 12/30/20 12/30/20 12/30/20 07:38 11:49 15:20 WBC RBC Hgb Hct MCV MCH RDW Plt Count Lymph % (Auto) Barnes % (Auto) Lymph # (Auto) Barnes # (Auto) Seg Neutrophils % Seg Neuts % (Manual) Lymphocytes % (Manual) Monocytes % (Manual) Seg Neutrophils # Seg Neutrophils # Man Lymphocytes # (Manual) Monocytes # (Manual) PT INR APTT D-Dimer ABG pH POC ABG pCO2 POC ABG pO2 55.0 L ABG pO2 ABG HCO3 ABG O2 Saturation ABG Hemoglobin 9.4 L ABG Oxyhemoglobin 87.6 L ABG Sodium 148.7 H ABG Chloride 113.0 H ABG Glucose 166 H Oxyhemoglobin Carboxyhemoglobin Sodium Potassium 5.5 H D Chloride 109.4 H Carbon Dioxide BUN 38 H Creatinine Glucose 133 H POC Glucose 123 H Phosphorus Ferritin Lactate Dehydrogenase C-Reactive Protein Total Protein Albumin Arterial Blood Glucose 166 H Coronavirus (PCR) 12/30/20 12/30/20 12/30/20 15:28 17:31 23:43 WBC 14.3 H RBC 3.49 L Hgb 9.6 L Hct 29.1 L MCV MCH 27 L RDW 20.2 H Plt Count Lymph % (Auto) Barnes % (Auto) Lymph # (Auto) Barnes # (Auto) Seg Neutrophils % Seg Neuts % (Manual) Lymphocytes % (Manual) Monocytes % (Manual) Seg Neutrophils # Seg Neutrophils # Man Lymphocytes # (Manual) Monocytes # (Manual) PT INR APTT D-Dimer ABG pH POC ABG pCO2 POC ABG pO2 ABG pO2 ABG HCO3 ABG O2 Saturation ABG Hemoglobin ABG Oxyhemoglobin ABG Sodium ABG Chloride ABG Glucose Oxyhemoglobin Carboxyhemoglobin Sodium Potassium Chloride 111.2 H Carbon Dioxide 21 L BUN 41 H Creatinine Glucose 143 H POC Glucose 149 H Phosphorus Ferritin Lactate Dehydrogenase C-Reactive Protein Total Protein 5.7 L Albumin 2.3 L Arterial Blood Glucose Coronavirus (PCR) 12/30/20 12/31/20 12/31/20 23:43 00:33 06:33 WBC RBC Hgb Hct MCV MCH RDW Plt Count Lymph % (Auto) Barnes % (Auto) Lymph # (Auto) Barnes # (Auto) Seg Neutrophils % Seg Neuts % (Manual) Lymphocytes % (Manual) Monocytes % (Manual) Seg Neutrophils # Seg Neutrophils # Man Lymphocytes # (Manual) Monocytes # (Manual) PT 18.1 H INR 1.43 H APTT 23.0 L D-Dimer ABG pH POC ABG pCO2 POC ABG pO2 ABG pO2 ABG HCO3 ABG O2 Saturation ABG Hemoglobin ABG Oxyhemoglobin ABG Sodium ABG Chloride ABG Glucose Oxyhemoglobin Carboxyhemoglobin Sodium Potassium Chloride Carbon Dioxide BUN Creatinine Glucose POC Glucose 237 H 198 H Phosphorus Ferritin Lactate Dehydrogenase C-Reactive Protein Total Protein Albumin Arterial Blood Glucose Coronavirus (PCR) 12/31/20 12/31/20 12/31/20 11:17 14:58 14:58 WBC 13.9 H RBC 3.19 L Hgb 9.4 L Hct 28.0 L MCV MCH RDW 20.5 H Plt Count Lymph % (Auto) Barnes % (Auto) Lymph # (Auto) Barnes # (Auto) Seg Neutrophils % Seg Neuts % (Manual) Lymphocytes % (Manual) Monocytes % (Manual) Seg Neutrophils # Seg Neutrophils # Man Lymphocytes # (Manual) Monocytes # (Manual) PT INR APTT D-Dimer 1968.92 H ABG pH POC ABG pCO2 POC ABG pO2 ABG pO2 ABG HCO3 ABG O2 Saturation ABG Hemoglobin ABG Oxyhemoglobin ABG Sodium ABG Chloride ABG Glucose Oxyhemoglobin Carboxyhemoglobin Sodium Potassium Chloride Carbon Dioxide BUN Creatinine Glucose POC Glucose 197 H Phosphorus Ferritin Lactate Dehydrogenase C-Reactive Protein Total Protein Albumin Arterial Blood Glucose Coronavirus (PCR) 12/31/20 12/31/20 12/31/20 14:58 14:59 17:54 WBC RBC Hgb Hct MCV MCH RDW Plt Count Lymph % (Auto) Barnes % (Auto) Lymph # (Auto) Barnes # (Auto) Seg Neutrophils % Seg Neuts % (Manual) Lymphocytes % (Manual) Monocytes % (Manual) Seg Neutrophils # Seg Neutrophils # Man Lymphocytes # (Manual) Monocytes # (Manual) PT INR APTT D-Dimer ABG pH POC ABG pCO2 POC ABG pO2 ABG pO2 53.4 L ABG HCO3 27.6 H ABG O2 Saturation 86.4 L ABG Hemoglobin ABG Oxyhemoglobin ABG Sodium ABG Chloride ABG Glucose Oxyhemoglobin 86.0 L Carboxyhemoglobin Sodium Potassium Chloride Carbon Dioxide BUN Creatinine Glucose POC Glucose 182 H Phosphorus Ferritin 503.3 H Lactate Dehydrogenase C-Reactive Protein Total Protein Albumin Arterial Blood Glucose Coronavirus (PCR) 12/31/20 12/31/20 01/01/21 23:13 Unknown 05:29 WBC RBC Hgb Hct MCV MCH RDW Plt Count Lymph % (Auto) Barnes % (Auto) Lymph # (Auto) Barnes # (Auto) Seg Neutrophils % Seg Neuts % (Manual) Lymphocytes % (Manual) Monocytes % (Manual) Seg Neutrophils # Seg Neutrophils # Man Lymphocytes # (Manual) Monocytes # (Manual) PT INR APTT D-Dimer ABG pH POC ABG pCO2 POC ABG pO2 ABG pO2 ABG HCO3 ABG O2 Saturation ABG Hemoglobin ABG Oxyhemoglobin ABG Sodium ABG Chloride ABG Glucose Oxyhemoglobin Carboxyhemoglobin Sodium 149 H Potassium Chloride 113.5 H Carbon Dioxide BUN 49 H Creatinine Glucose 201 H POC Glucose 176 H 192 H Phosphorus Ferritin Lactate Dehydrogenase 392 H C-Reactive Protein 23.40 H Total Protein 5.8 L Albumin 2.5 L Arterial Blood Glucose Coronavirus (PCR) 01/01/21 12:39 WBC RBC Hgb Hct MCV MCH RDW Plt Count Lymph % (Auto) Barnes % (Auto) Lymph # (Auto) Barnes # (Auto) Seg Neutrophils % Seg Neuts % (Manual) Lymphocytes % (Manual) Monocytes % (Manual) Seg Neutrophils # Seg Neutrophils # Man Lymphocytes # (Manual) Monocytes # (Manual) PT INR APTT D-Dimer ABG pH POC ABG pCO2 POC ABG pO2 ABG pO2 ABG HCO3 ABG O2 Saturation ABG Hemoglobin ABG Oxyhemoglobin ABG Sodium ABG Chloride ABG Glucose Oxyhemoglobin Carboxyhemoglobin Sodium Potassium Chloride Carbon Dioxide BUN Creatinine Glucose POC Glucose 139 H Phosphorus Ferritin Lactate Dehydrogenase C-Reactive Protein Total Protein Albumin Arterial Blood Glucose Coronavirus (PCR) Allied health notes reviewed: nursing
--- NOTE | 2021-01-01 15:18 | Progress Note ---
Assessment and Plan Cultures: 12/25/2020 blood culture: No growth 12/26/2020 blood culture: No growth COVID PCR: positive A/P: 80-year-old female with hypertension, dementia, diabetes mellitus, admitted to the hospital with weakness: #Sepsis, likely secondary to bilateral probably aspiration pneumonia as noted on subsequent chest x-ray. UA did not show any significant pyuria. #Acute hypoxic respiratory failure: on BiPAP #COVID-19: PCR positive. #Acute encephalopathy/underlying vascular dementia, also electrolyte abnormalities Recs: IV Cefepime. Continue IV vancomycin f/u MRSA nasal PCR stop vancomycin if negative. agree with goals of care discussion and possible hospice Continue Remdesivir to complete 5 days given COVID PCR positive. Irma Boyd MD [facility], [place], [facility] O: [phone] F: [phone] Subjective Date of service: 01/01/21 Principal diagnosis: Ac. hypercapnic and hypoxemic resp failure; MOUNA; Severe sepsis; COVID-19 Interval history: Afebrile, no other acute changes. On BIPAP Objective - Exam Narrative Exam: Physical Exam: Constitutional:unresponsive, on BiPAP Head, Ears, Nose: Normocephalic, atraumatic. Eyes: Conjunctivae/corneas clear. No icterus. No ptosis. Neck: Supple, no meningeal signs Oral: BiPAP Cardiovascular: S1, S2 normal. Respiratory: b/l rhonchi + GI: Soft, non-tender; bowel sounds normal. No peritoneal signs Musculoskeletal: No pedal edema, no cyanosis. Skin: No rash or abscess Hem/Lymphatic: No palpable cervical or supraclavicular nodes. No lymphangitis Psych: no agitation Neurological: unresponsive - Constitutional Vitals: Vital Signs Temp Pulse Resp BP Pulse Ox 97.5 F L 78 29 H 140/60 84 01/01/21 08:00 01/01/21 13:00 01/01/21 13:00 01/01/21 13:00 01/01/21 13:00 Temperature -Last 24 Hours Temperature 97.5 F Temperature 98.9 F Temperature 98.3 F Temperature 98.3 F Temperature 98.8 F Temperature 98.1 F - Labs CBC & Chem 7: 12/31/20 14:58 12/31/20 Unknown Labs: Abnormal lab results 12/31/20 12/31/20 12/31/20 Range/Units 14:58 14:58 14:58 WBC 13.9 H (4.5-11.0) K/mm3 RBC 3.19 L (3.65-5.03) M/mm3 Hgb 9.4 L (10.1-14.3) gm/dl Hct 28.0 L (30.3-42.9) % RDW 20.5 H (13.2-15.2) % D-Dimer 1968.92 H (0-234) ng/mlDDU ABG pO2 (80.0-90.0) mm Hg ABG HCO3 (20.0-26.0) mmol/L ABG O2 Saturation (95.0-99.0) % Oxyhemoglobin (95.0-99.0) % POC Glucose (70-105) mg/dL Ferritin 503.3 H (10.0-200.0) ng/mL 12/31/20 12/31/20 12/31/20 Range/Units 14:59 17:54 23:13 WBC (4.5-11.0) K/mm3 RBC (3.65-5.03) M/mm3 Hgb (10.1-14.3) gm/dl Hct (30.3-42.9) % RDW (13.2-15.2) % D-Dimer (0-234) ng/mlDDU ABG pO2 53.4 L (80.0-90.0) mm Hg ABG HCO3 27.6 H (20.0-26.0) mmol/L ABG O2 Saturation 86.4 L (95.0-99.0) % Oxyhemoglobin 86.0 L (95.0-99.0) % POC Glucose 182 H 176 H (70-105) mg/dL Ferritin (10.0-200.0) ng/mL 01/01/21 01/01/21 Range/Units 05:29 12:39 WBC (4.5-11.0) K/mm3 RBC (3.65-5.03) M/mm3 Hgb (10.1-14.3) gm/dl Hct (30.3-42.9) % RDW (13.2-15.2) % D-Dimer (0-234) ng/mlDDU ABG pO2 (80.0-90.0) mm Hg ABG HCO3 (20.0-26.0) mmol/L ABG O2 Saturation (95.0-99.0) % Oxyhemoglobin (95.0-99.0) % POC Glucose 192 H 139 H (70-105) mg/dL Ferritin (10.0-200.0) ng/mL
[2021-01-01] MEDS: QUEtiapine 25 MG TAB PO SCH ×2 (16:48→21:20)
[2021-01-01] MEDS: dexAMETHasone 4 MG/ML VIAL IV SCH (17:23)
--- NOTE | 2021-01-01 20:22 | Progress Note ---
<BRENDASitaDOMENICSarah - Last Filed: 01/01/21 20:21> Assessment and Plan Assessment and plan: 85 YO Female with HTN, DM, presents ED for generalized weakness and not eating and drinking well. In the ER patient found to have hyponatremia hypokalemia dehydration and physical debility. Patient admitted to the medical floor for further evaluation and management. Now developed respiratory failure with aspiration pneumonia and positive for COVID-19. Sepsis likely secondary to bilateral probable aspiration pneumonia Acute hypoxic respiratory failure, not POA COVID-19 infection Acute encephalopathy Leukocytosis Hypernatremia Elevated D-dimer Hyperchloremia Acute kidney injury Vascular dementia Hypertension Diabetes mellitus Physical debility -CCM, infectious disease, physical therapy consulted, appreciate recommendations -COVID-19 PCR positive -Droplet/agitation precautions -Remdesivir, steroids -Wean supplemental oxygen as tolerated -Continue SPO2 monitoring -Pulmonary hygiene -Prone to sleep -Vitamin C/vitamin D/zinc -Eliquis twice daily -Empiric antibiotics -Tube feedings -Reglan scheduled -Daily weight, avoid nephrotoxic medication -SSI, Accu-Cheks every 6 -CXR shows bilateral pulmonary parenchymal disease which represent atypical pneumonia and aspiration -Trend CBC, CMP, COVID-19 inflammatory markers for risk stratification GI/DVT prophylaxis: Eliquis twice daily, PPI ,SCDs to bilateral lower extremity while in bed, Disposition: ICU, unable to transfer to inpatient hospice due to Covid 19 PCR positive DNR status The high probability of a clinically significant, sudden or life threatening deterioration of the system([place], CVS, respiratory, renal) required my full and direct attention, intervention and personal management. The aggregate critical care time was [45] minutes. This time is in addition to time spent performing reported procedures but includes the following: [x] Data Review and interpretation [x] Patient assessment and monitoring of vital signs [x] Documentation [x] Medication orders and management History Interval history: This 85-year-old female with hypertension, diabetes, vascular dementia without behavior disturbance, cerebral atherosclerosis presented to emergency department on 12/25 with complaints of feeling weak and confusion over the past 2 weeks with inability to walk and diminished oral intake work-up in the emergency department revealed a urinary tract infection complicated by sepsis, hyponatremia, hypokalemia and debility. On subsequent CXR patient noted to have aspiration pneumonia. Patient COVID-19 PCR is positive. Patient was admitted to the hospital service with consults to infectious disease, [facility]. 12/26/20; continue IV fluids. Resume home meds, continue consistent carb with sliding scale insulin. Start on nutritional supplement as pt is Having limited oral intake. PT eval, discussed with case packer for hospice placement. 12/27/20; white count remains elevated, no clear source of infection yet. Continue to replete potassium-today K was 2.8. patient spiking fever, will consult ID. 12/28/20; Discussed with patient's daughter and pt did not have covid vaccine yet. family also denies any h/o dementia, will order COVID test. patient o/n placed on BIPAP and cxr showing consolidation. transferred to ICU. Consult CC, ID following. cont gentle hydration. Family wants to keep the patient full code 12/29/20; Positive for COVID, consult ID. family wants hospice and DNR, But they also want to cont with treatment for COVID. Start on steroid, will order remdesivir if Cr level improves. 12/30/20: We will initiate on remdesivir as renal function has improved. Treat hyperkalemia with Kayexalate bicarbonate and calcium gluconate. Continue dexamethasone and BiPAP. Unable to place for inpatient hospice as patient is Covid positive. But family also wished to continue treatment for COVID-19. D-dimer noted to be elevated -we will initiate on therapeutic dose of Eliquis. Continue to monitor H&H. Will start on tube feeding, continue gentle IV fluid hydration with D5 normal saline. 12/31: Patient remains on continuous BiPAP and is on tube feedings with scheduled Reglan to prevent aspiration per [facility]. Patient has improving leukocytosis and D-dimer. Patient has hypernatremia and hyperchloremia today with slight improvement to creatinine to 1.1 from 1.2. Patient is hyperglycemic and long- acting insulin has been adjusted. We will continue to monitor LFTs while on remdesivir. Patient is not a candidate for inpatient hospice due to positive COVID-19 and only option will be home hospice which will be discussed by case management with family. 01/01: Patient remains on 100% BiPAP therapy and was noted to be slightly more hypoxic with SPO2 ranging from upper 80s to low 90s throughout the day. Family was called and informed. Patient's MRSA PCR is still pending. Due to patient being on vancomycin per IV access nurse midline would be inappropriate because vancomycin is caustic to midline. Upon insistence of IV nurse PICC line was ordered to be placed. Dr. Zimmerman spoke to the family and they agreed upon home hospice. This was attempted to be communicated to however she was unavailable. Dr. Zimmerman stated that he will also reach out to [facility]. Hospitalist Physical - Constitutional Vitals: Temp Pulse Resp BP Pulse Ox 98.3 F 83 25 H 104/44 90 01/01/21 20:00 01/01/21 19:59 01/01/21 19:59 01/01/21 19:59 01/01/21 19:59 General appearance: Present: mild distress, other - EENT Eyes: Present: PERRL, EOM intact ENT: hearing decreased, poor dentition - Neck Neck: Present: normal ROM - Respiratory Respiratory effort: normal Respiratory: bilateral: diminished - Cardiovascular Rhythm: regular Heart Sounds: Present: S1 & S2. Absent: systolic murmur, diastolic murmur - Extremities Extremities: no ischemia, pulses intact, pulses symmetrical, normal temperature, normal color Peripheral Pulses: within normal limits - Abdominal General gastrointestinal: soft, non-tender, non-distended, normal bowel sounds - Integumentary Integumentary: Present: warm, dry - Psychiatric Psychiatric: cooperative - Neurologic Neurologic: moves all extremities - Allied Health Allied health notes reviewed: nursing, RT, social work Results - Labs CBC & Chem 7: 12/31/20 14:58 12/31/20 Unknown Labs: Laboratory Last Values WBC 13.9 K/mm3 (4.5-11.0) H 12/31/20 14:58 RBC 3.19 M/mm3 (3.65-5.03) L 12/31/20 14:58 Hgb 9.4 gm/dl (10.1-14.3) L 12/31/20 14:58 Hct 28.0 % (30.3-42.9) L 12/31/20 14:58 MCV 88 fl (79-97) 12/31/20 14:58 MCH 29 pg (28-32) 12/31/20 14:58 MCHC 33 % (30-34) 12/31/20 14:58 RDW 20.5 % (13.2-15.2) H 12/31/20 14:58 Plt Count 292 K/mm3 (140-440) 12/31/20 14:58 Lymph % (Auto) 3.5 % (13.4-35.0) L 12/30/20 07:38 Barry % (Auto) 10.7 % (0.0-7.3) H 12/30/20 07:38 Eos % (Auto) 0.1 % (0.0-4.3) 12/30/20 07:38 Baso % (Auto) 0.2 % (0.0-1.8) 12/30/20 07:38 Lymph # (Auto) 0.3 K/mm3 (1.2-5.4) L 12/30/20 07:38 Barry # (Auto) 1.0 K/mm3 (0.0-0.8) H 12/30/20 07:38 Eos # (Auto) 0.0 K/mm3 (0.0-0.4) 12/30/20 07:38 Baso # (Auto) 0.0 K/mm3 (0.0-0.1) 12/30/20 07:38 Add Manual Diff Complete 12/27/20 05:10 Total Counted 100 12/27/20 05:10 Seg Neutrophils % 85.5 % (40.0-70.0) H 12/30/20 07:38 Seg Neuts % (Manual) 92.0 % (40.0-70.0) H 12/27/20 05:10 Band Neutrophils % 2.0 % 12/25/20 11:35 Lymphocytes % (Manual) 5.0 % (13.4-35.0) L 12/25/20 11:35 Monocytes % (Manual) 8.0 % (0.0-7.3) H 12/27/20 05:10 Nucleated RBC % Not Reportable 12/27/20 05:10 Seg Neutrophils # 8.0 K/mm3 (1.8-7.7) H 12/30/20 07:38 Seg Neutrophils # Man 20.0 K/mm3 (1.8-7.7) H 12/27/20 05:10 Band Neutrophils # 0.0 K/mm3 12/27/20 05:10 Lymphocytes # (Manual) 0.0 K/mm3 (1.2-5.4) L 12/27/20 05:10 Abs React Lymphs (Man) 0.0 K/mm3 12/27/20 05:10 Monocytes # (Manual) 1.7 K/mm3 (0.0-0.8) H 12/27/20 05:10 Eosinophils # (Manual) 0.0 K/mm3 (0.0-0.4) 12/27/20 05:10 Basophils # (Manual) 0.0 K/mm3 (0.0-0.1) 12/27/20 05:10 Metamyelocytes # 0.0 K/mm3 12/27/20 05:10 Myelocytes # 0.0 K/mm3 12/27/20 05:10 Promyelocytes # 0.0 K/mm3 12/27/20 05:10 Blast Cells # 0.0 K/mm3 12/27/20 05:10 WBC Morphology Not Reportable 12/27/20 05:10 Hypersegmented Neuts Not Reportable 12/27/20 05:10 Hyposegmented Neuts Not Reportable 12/27/20 05:10 Hypogranular Neuts Not Reportable 12/27/20 05:10 Smudge Cells Not Reportable 12/27/20 05:10 Toxic Granulation Not Reportable 12/27/20 05:10 Toxic Vacuolation Not Reportable 12/27/20 05:10 Dohle Bodies Not Reportable 12/27/20 05:10 Pelger-Huet Anomaly Not Reportable 12/27/20 05:10 Ernie Rods Not Reportable 12/27/20 05:10 Platelet Estimate Consistent w auto 12/27/20 05:10 Clumped Platelets Not Reportable 12/27/20 05:10 Plt Clumps, EDTA Not Reportable 12/27/20 05:10 Large Platelets Few 12/27/20 05:10 Giant Platelets Not Reportable 12/27/20 05:10 Platelet Satelliting Not Reportable 12/27/20 05:10 Plt Morphology Comment Not Reportable 12/27/20 05:10 RBC Morphology Not Reportable 12/27/20 05:10 Dimorphic RBCs Not Reportable 12/27/20 05:10 Polychromasia Not Reportable 12/27/20 05:10 Hypochromasia 1+ 12/27/20 05:10 Poikilocytosis Not Reportable 12/27/20 05:10 Anisocytosis 1+ 12/27/20 05:10 Microcytosis Not Reportable 12/27/20 05:10 Macrocytosis Not Reportable 12/27/20 05:10 Spherocytes Not Reportable 12/27/20 05:10 Pappenheimer Bodies Not Reportable 12/27/20 05:10 Sickle Cells Not Reportable 12/27/20 05:10 Target Cells Not Reportable 12/27/20 05:10 Tear Drop Cells Not Reportable 12/27/20 05:10 Ovalocytes Not Reportable 12/27/20 05:10 Helmet Cells Not Reportable 12/27/20 05:10 Fonseca-Dawn Bodies Not Reportable 12/27/20 05:10 Mckinney Rings Not Reportable 12/27/20 05:10 Trina Cells Not Reportable 12/27/20 05:10 Bite Cells Not Reportable 12/27/20 05:10 Crenated Cell Not Reportable 12/27/20 05:10 Elliptocytes Not Reportable 12/27/20 05:10 Acanthocytes (Spur) Not Reportable 12/27/20 05:10 Rouleaux Not Reportable 12/27/20 05:10 Hemoglobin C Crystals Not Reportable 12/27/20 05:10 Schistocytes Not Reportable 12/27/20 05:10 Malaria parasites Not Reportable 12/27/20 05:10 Louis Bodies Not Reportable 12/27/20 05:10 Hem Pathologist Commnt No 12/27/20 05:10 PT 18.1 Sec. (12.2-14.9) H 12/30/20 23:43 INR 1.43 (0.87-1.13) H 12/30/20 23:43 APTT 23.0 Sec. (24.2-36.6) L 12/30/20 23:43 D-Dimer 1968.92 ng/mlDDU (0-234) H 12/31/20 14:58 ABG pH 7.403 pH Units (7.350-7.450) 12/31/20 14:59 POC ABG pCO2 40.1 mmHg (32.0-48.0) 12/30/20 15:20 ABG pCO2 45.3 mm Hg 12/31/20 14:59 POC ABG pO2 55.0 mmHg (83-108) L 12/30/20 15:20 ABG pO2 53.4 mm Hg (80.0-90.0) L 12/31/20 14:59 POC ABG HCO3 26.1 12/30/20 15:20 ABG HCO3 27.6 mmol/L (20.0-26.0) H 12/31/20 14:59 ABG O2 Saturation 86.4 % (95.0-99.0) L 12/31/20 14:59 POC ABG Base Excess 1.7 12/30/20 15:20 ABG Base Excess 2.5 mmol/L (-2.0-3.0) 12/31/20 14:59 ABG Hemoglobin 13.5 gm/dl (12.0-16.0) 12/31/20 14:59 ABG Oxyhemoglobin 87.6 (94-98) L 12/30/20 15:20 ABG Carboxyhemoglobin 0.2 % (0.0-5.0) 12/31/20 14:59 ABG Methemoglobin 0.3 % (0.0-1.5) 12/31/20 14:59 ABG Sodium 148.7 mmol/L (136.0-145.0) H 12/30/20 15:20 ABG Potassium 3.4 mmol/L (3.40-4.50) 12/30/20 15:20 ABG Chloride 113.0 mmol/L (98-107) H 12/30/20 15:20 ABG Glucose 166 mg/dL (65-95) H 12/30/20 15:20 Oxyhemoglobin 86.0 % (95.0-99.0) L 12/31/20 14:59 Carboxyhemoglobin 0.5 (0.5-1.5) 12/30/20 15:20 FiO2 100.0 % 12/31/20 14:59 FiO2 % 70.0 12/30/20 15:20 Sodium 149 mmol/L (137-145) H 12/31/20 Unknown Potassium 3.8 mmol/L (3.6-5.0) D 12/31/20 Unknown Chloride 113.5 mmol/L (98-107) H 12/31/20 Unknown Carbon Dioxide 27 mmol/L (22-30) 12/31/20 Unknown Anion Gap 12 mmol/L 12/31/20 Unknown BUN 49 mg/dL (7-17) H 12/31/20 Unknown Creatinine 1.1 mg/dL (0.6-1.2) 12/31/20 Unknown Estimated GFR 47 ml/min 12/31/20 Unknown BUN/Creatinine Ratio 45 % 12/31/20 Unknown Glucose 201 mg/dL (65-100) H 12/31/20 Unknown POC Glucose 157 mg/dL (70-105) H 01/01/21 17:23 Lactic Acid 1.20 mmol/L (0.7-2.0) 12/26/20 23:01 Calcium 9.6 mg/dL (8.4-10.2) 12/31/20 Unknown Phosphorus 1.50 mg/dL (2.5-4.5) L 12/27/20 06:52 Magnesium 2.20 mg/dL (1.7-2.3) 12/25/20 11:35 Ferritin 503.3 ng/mL (10.0-200.0) H 12/31/20 14:58 Total Bilirubin 0.30 mg/dL (0.1-1.2) 12/31/20 Unknown AST 20 units/L (5-40) 12/31/20 Unknown ALT 13 units/L (7-56) 12/31/20 Unknown Alkaline Phosphatase 62 units/L (35-129) 12/31/20 Unknown Lactate Dehydrogenase 392 units/L (91-180) H 12/31/20 Unknown C-Reactive Protein 23.40 mg/dL (0.00-1.30) H 12/31/20 Unknown Total Protein 5.8 g/dL (6.3-8.2) L 12/31/20 Unknown Albumin 2.5 g/dL (3.9-5) L 12/31/20 Unknown Albumin/Globulin Ratio 0.8 % 12/31/20 Unknown Procalcitonin 0.46 ng/mL (<0.15) 12/29/20 19:08 Arterial Blood Glucose 166 mg/dL (65-95) H 12/30/20 15:20 Arterial Blood Ionized Calcium 4.8 mg/dL (4.6-5.3) 12/30/20 15:20 Urine Color Shania (Yellow) 12/25/20 15:20 Urine Turbidity Clear (Clear) 12/25/20 15:20 Urine pH 6.0 (5.0-7.0) 12/25/20 15:20 Ur Specific [place] 1.018 (1.003-1.030) 12/25/20 15:20 Urine Protein >500 mg/dL (Negative) 12/25/20 15:20 Urine Glucose (UA) Neg mg/dL (Negative) 12/25/20 15:20 Urine Ketones Tr mg/dL (Negative) 12/25/20 15:20 Urine Blood Sm (Negative) 12/25/20 15:20 Urine Nitrite Neg (Negative) 12/25/20 15:20 Urine Bilirubin Neg (Negative) 12/25/20 15:20 Urine Urobilinogen 2.0 mg/dL (<2.0) 12/25/20 15:20 Ur Leukocyte Esterase Neg (Negative) 12/25/20 15:20 Urine WBC (Auto) 2.0 /HPF (0.0-6.0) 12/25/20 15:20 Urine RBC (Auto) 4.0 /HPF (0.0-6.0) 12/25/20 15:20 U Epithel Cells (Auto) 1.0 /HPF (0-13.0) 12/25/20 15:20 Urine Mucus Few /HPF 12/25/20 15:20 Random Vancomycin 5.7 ug/mL (0-40.0) 12/30/20 07:38 Coronavirus (PCR) Positive (Negative) A 12/29/20 09:25 Blood Type B POSITIVE 12/25/20 14:00 Antibody Screen Positive 12/25/20 14:00 Antibody Identification Anti-Fya 12/25/20 14:00 Fermin/IV: Voiding Method Indwelling Catheter Active Medications - Current Medications Current Medications: Generic Name Dose Route Start Last Admin Trade Name Freq PRN Reason Stop Dose Admin Acetaminophen 650 mg 12/25/20 14:30 12/27/20 04:34 Acetaminophen 325 Mg Tab PO 650 mg Q4H PRN Administration Pain MILD(1-3)/Fever >100.5/JAIME Acetaminophen 650 mg 12/28/20 10:00 12/28/20 10:01 Acetaminophen 650 Mg Rect Supp OH 650 mg Q4H PRN Administration Pain, Mild (1-3) Al Hydrox/Mg Hydrox/Simethicone 15 ml 12/27/20 15:33 12/27/20 16:49 Alum-Mag Hydroxide-Simethicone 757-285-62zm/5ml Oral Liqd 30 Ml PO 15 ml Q4H PRN Administration Indigestion Albuterol 2.5 mg 12/25/20 16:00 12/27/20 22:11 Albuterol 2.5 Mg/3 Ml Nebu IH 2.5 mg Q4HRT PRN Administration Shortness Of Breath Amlodipine Besylate 10 mg 12/26/20 14:00 01/01/21 09:20 Amlodipine 10 Mg Tab PO 10 mg DAILY LUCIUS Administration Lipase/Protease/Amylase 1 each 12/29/20 16:34 Lipase 10,500/Protease 25,000/Amylase 43,750 (Units) Dr Carrillo FEEDTUBE PRN PRN For Clogged Feeding Tube Apixaban 5 mg 12/30/20 22:00 01/01/21 09:19 Apixaban 5 Mg Tab PO 5 mg Q12HR LUCIUS Administration Protocol Ascorbic Acid 1,000 mg 12/30/20 22:00 01/01/21 09:21 Ascorbic Acid 500 Mg Tab PO 1,000 mg BID LUCIUS Administration Atenolol 50 mg 12/26/20 14:00 01/01/21 09:18 Atenolol 50 Mg Tab PO 50 mg DAILY LUCIUS Administration Cholecalciferol 5,000 unit 12/30/20 19:00 01/01/21 09:19 Cholecalciferol (Vit D3) 5,000 Unit Tab PO 5,000 unit DAILY LUCIUS Administration Dexamethasone 6 mg 12/29/20 18:00 01/01/21 17:23 Dexamethasone 4 Mg/Ml Vial IV 01/07/21 18:01 6 mg Q24H LUCIUS Administration Famotidine 20 mg 12/27/20 10:00 01/01/21 09:20 Famotidine 10 Mg Tab PO 20 mg DAILY LUCIUS Administration Fluoxetine HCl 20 mg 12/26/20 14:00 01/01/21 09:20 Fluoxetine 20 Mg Cap PO 20 mg DAILY LUCIUS Administration Hydralazine HCl 10 mg 12/30/20 22:37 Hydralazine 20 Mg/1 Ml Inj IV Q6H PRN Hypertension Hydromorphone HCl 0.25 mg 12/25/20 15:00 12/25/20 19:32 Hydromorphone 1 Mg/1 Ml Inj IV 0.25 mg Q4H PRN Administration Pain, Moderate (4-6) Cefepime HCl 1 gm in 100 mls @ 200 mls/hr 12/29/20 18:00 01/01/21 17:23 Cefepime/Ns 1 Gm/100 Ml IV 200 mls/hr Q12H LUCIUS Administration Protocol Vancomycin HCl 1,250 mg/ 275 mls @ 166.667 mls/hr 12/30/20 10:00 01/01/21 12:45 Sodium Chloride IV 166.667 mls/hr Q24H LUCIUS Administration REMDESIVIR 100 mg/ Sodium 250 mls @ 500 mls/hr 12/31/20 21:00 12/31/20 21:48 Chloride IV 01/03/21 21:29 500 mls/hr Q24HR@2100 LUCIUS Administration Insulin Human Regular 0 units 12/31/20 12:00 01/01/21 17:25 Insulin Regular, Human 100 Units/1 Ml SUB-Q 3 units Q6HR LUCIUS Administration Protocol Isosorbide Mononitrate 20 mg 12/31/20 09:00 01/01/21 16:48 Isosorbide Mononitrate 20 Mg Tab PO 20 mg TID LUCIUS Administration Metoclopramide HCl 5 mg 12/30/20 16:00 01/01/21 09:20 Metoclopramide 10 Mg/2 Ml Inj IV 5 mg BID LUCIUS Administration Ondansetron HCl 4 mg 12/25/20 15:00 12/27/20 08:54 Ondansetron 4 Mg/2 Ml Inj IV 4 mg Q8H PRN Administration Nausea And Vomiting Quetiapine Fumarate 50 mg 01/01/21 15:00 01/01/21 16:48 Quetiapine 25 Mg Tab PO 50 mg BID LUCIUS Administration Simple Syrup 15 ml 12/29/20 16:34 Simple Syrup 15 Ml FEEDTUBE PRN PRN Hypoglycemia Simple Syrup 30 ml 12/29/20 16:34 Simple Syrup 15 Ml FEEDTUBE PRN PRN Hypoglycemia Sodium Bicarbonate 325 mg 12/29/20 16:34 Sodium Bicarbonate 325 Mg Tab FEEDTUBE PRN PRN For Clogged Feeding Tube Sodium Chloride 10 ml 12/25/20 22:00 01/01/21 09:21 Sodium Chloride 0.9% 10 Ml Flush Syringe IV 10 ml BID LUCIUS Administration Sodium Chloride 10 ml 12/25/20 13:55 Sodium Chloride 0.9% 10 Ml Flush Syringe IV 01/05/21 13:54 PRN PRN LINE FLUSH Sodium Chloride 50 ml 12/30/20 12:00 12/31/20 21:48 Sodium Chloride 0.9% 50 Ml Ivpb IV 01/03/21 21:01 50 ml Q24HR@2100 LUCIUS Administration Zinc Sulfate 220 mg 12/30/20 22:00 01/01/21 09:19 Zinc Sulfate 220 Mg Cap PO 220 mg BID LUCIUS Administration Nutrition/Malnutrition Assess - Dietary Evaluation Nutrition/Malnutrition Findings: Nutrition Notes Start: 12/26/20 14:05 Freq: Status: Active Protocol: Document 01/01/21 12:44 JESSICA (Rec: 01/01/21 12:47 [id number]) Nutrition Notes Initial or Follow up Reassessment Current Diagnosis Diabetes,Sepsis,Hypertension Other Pertinent Diagnosis dementia, UTI, COVID(+) Current Diet Glucerna 1.2 at 45 ml/hr Labs/Tests Na 149 Pertinent Medications Reglan Height 5 ft 3 in Weight 77.1 kg [place] Body Weight (kg) 52.27 BMI 30.1 Weight Status Obese Subjective/Other Information FU for TF tolerance. Per RN, pt tolerating. Informed RN to increase water flush. Percent of energy/protein needs met: 94%/63% Burn Absent Trauma Absent GI Symptoms None Current % PO Negligible Minimum of two criteria No Energy Intake (non-severe) <75% Estimated Energy Requirement >7 days #2 Nutrition Diagnosis Increased nutrient needs ( specify in comment below) Diagnosis Progress(for reassessment Continues documentation) #1 Nutrition Diagnosis Inadequate oral intake Diagnosis Progress(for reassessment Continues documentation) Is patient on ventilator? No Is Patient Ambulatory and/or Out of Bed No REE-([place]-confined to bed) 1429.380 Kcal/Kg value to use for calculation 18 Approximate Energy Requirements Using 1388 kcal/Kg Calculation Used for Recommendations Kcal/kg Additional Notes Protein: (>2g IBW) >104g Fluid: 1 ml/kcal or per MD Nutrition Intervention Change Diet Order: Continue Nutrition Support: Glucerna 1.2 at 45 ml/hr Flush 175 ml q4h for hypernatermia. Once resolved, flush 75 ml q4h Kcal 1,296 Protein (gm) 65 Carbohydrates (gm) 124 Fat (gm) 65 Fluid (mL) 869 Goal #1 Meet at least 60% of protein and 80% energy needs via TF Anticipated Discharge Needs: Unable to determine at this time Follow-Up By: 01/03/21 Additional Comments FU for TF tolerance, Na <TYRON GIBSON - Last Filed: 01/02/21 18:25> Assessment and Plan Assessment and plan: Patient seen and examined, patient continues to have respiratory failure. Patient oxygen saturations in the high 80s. Poor prognosis at this time, family is aware, patient is DNR. Hospitalist Physical - Constitutional Vitals: Temp Pulse Resp BP Pulse Ox 97 F L 70 29 H 141/122 76 L 01/02/21 16:11 01/02/21 17:00 01/02/21 17:00 01/02/21 17:00 01/02/21 17:00 Results - Labs CBC & Chem 7: 01/02/21 08:03 01/02/21 08:03 Labs: Laboratory Last Values WBC 15.3 K/mm3 (4.5-11.0) H 01/02/21 08:03 RBC 3.11 M/mm3 (3.65-5.03) L 01/02/21 08:03 Hgb 8.5 gm/dl (10.1-14.3) L 01/02/21 08:03 Hct 26.2 % (30.3-42.9) L 01/02/21 08:03 MCV 84 fl (79-97) 01/02/21 08:03 MCH 27 pg (28-32) L 01/02/21 08:03 MCHC 32 % (30-34) 01/02/21 08:03 RDW 20.8 % (13.2-15.2) H 01/02/21 08:03 Plt Count 236 K/mm3 (140-440) 01/02/21 08:03 Lymph % (Auto) 3.5 % (13.4-35.0) L 12/30/20 07:38 Barry % (Auto) 10.7 % (0.0-7.3) H 12/30/20 07:38 Eos % (Auto) 0.1 % (0.0-4.3) 12/30/20 07:38 Baso % (Auto) 0.2 % (0.0-1.8) 12/30/20 07:38 Lymph # (Auto) 0.3 K/mm3 (1.2-5.4) L 12/30/20 07:38 Barry # (Auto) 1.0 K/mm3 (0.0-0.8) H 12/30/20 07:38 Eos # (Auto) 0.0 K/mm3 (0.0-0.4) 12/30/20 07:38 Baso # (Auto) 0.0 K/mm3 (0.0-0.1) 12/30/20 07:38 Add Manual Diff Complete 12/27/20 05:10 Total Counted 100 12/27/20 05:10 Seg Neutrophils % 85.5 % (40.0-70.0) H 12/30/20 07:38 Seg Neuts % (Manual) 92.0 % (40.0-70.0) H 12/27/20 05:10 Band Neutrophils % 2.0 % 12/25/20 11:35 Lymphocytes % (Manual) 5.0 % (13.4-35.0) L 12/25/20 11:35 Monocytes % (Manual) 8.0 % (0.0-7.3) H 12/27/20 05:10 Nucleated RBC % Not Reportable 12/27/20 05:10 Seg Neutrophils # 8.0 K/mm3 (1.8-7.7) H 12/30/20 07:38 Seg Neutrophils # Man 20.0 K/mm3 (1.8-7.7) H 12/27/20 05:10 Band Neutrophils # 0.0 K/mm3 12/27/20 05:10 Lymphocytes # (Manual) 0.0 K/mm3 (1.2-5.4) L 12/27/20 05:10 Abs React Lymphs (Man) 0.0 K/mm3 12/27/20 05:10 Monocytes # (Manual) 1.7 K/mm3 (0.0-0.8) H 12/27/20 05:10 Eosinophils # (Manual) 0.0 K/mm3 (0.0-0.4) 12/27/20 05:10 Basophils # (Manual) 0.0 K/mm3 (0.0-0.1) 12/27/20 05:10 Metamyelocytes # 0.0 K/mm3 12/27/20 05:10 Myelocytes # 0.0 K/mm3 12/27/20 05:10 Promyelocytes # 0.0 K/mm3 12/27/20 05:10 Blast Cells # 0.0 K/mm3 12/27/20 05:10 WBC Morphology Not Reportable 12/27/20 05:10 Hypersegmented Neuts Not Reportable 12/27/20 05:10 Hyposegmented Neuts Not Reportable 12/27/20 05:10 Hypogranular Neuts Not Reportable 12/27/20 05:10 Smudge Cells Not Reportable 12/27/20 05:10 Toxic Granulation Not Reportable 12/27/20 05:10 Toxic Vacuolation Not Reportable 12/27/20 05:10 Dohle Bodies Not Reportable 12/27/20 05:10 Pelger-Huet Anomaly Not Reportable 12/27/20 05:10 Ernie Rods Not Reportable 12/27/20 05:10 Platelet Estimate Consistent w auto 12/27/20 05:10 Clumped Platelets Not Reportable 12/27/20 05:10 Plt Clumps, EDTA Not Reportable 12/27/20 05:10 Large Platelets Few 12/27/20 05:10 Giant Platelets Not Reportable 12/27/20 05:10 Platelet Satelliting Not Reportable 12/27/20 05:10 Plt Morphology Comment Not Reportable 12/27/20 05:10 RBC Morphology Not Reportable 12/27/20 05:10 Dimorphic RBCs Not Reportable 12/27/20 05:10 Polychromasia Not Reportable 12/27/20 05:10 Hypochromasia 1+ 12/27/20 05:10 Poikilocytosis Not Reportable 12/27/20 05:10 Anisocytosis 1+ 12/27/20 05:10 Microcytosis Not Reportable 12/27/20 05:10 Macrocytosis Not Reportable 12/27/20 05:10 Spherocytes Not Reportable 12/27/20 05:10 Pappenheimer Bodies Not Reportable 12/27/20 05:10 Sickle Cells Not Reportable 12/27/20 05:10 Target Cells Not Reportable 12/27/20 05:10 Tear Drop Cells Not Reportable 12/27/20 05:10 Ovalocytes Not Reportable 12/27/20 05:10 Helmet Cells Not Reportable 12/27/20 05:10 Fonseca-Dawn Bodies Not Reportable 12/27/20 05:10 Mckinney Rings Not Reportable 12/27/20 05:10 [place] Cells Not Reportable 12/27/20 05:10 Bite Cells Not Reportable 12/27/20 05:10 Crenated Cell Not Reportable 12/27/20 05:10 Elliptocytes Not Reportable 12/27/20 05:10 Acanthocytes (Spur) Not Reportable 12/27/20 05:10 Rouleaux Not Reportable 12/27/20 05:10 Hemoglobin C Crystals Not Reportable 12/27/20 05:10 Schistocytes Not Reportable 12/27/20 05:10 Malaria parasites Not Reportable 12/27/20 05:10 Louis Bodies Not Reportable 12/27/20 05:10 Hem Pathologist Commnt No 12/27/20 05:10 PT 18.1 Sec. (12.2-14.9) H 12/30/20 23:43 INR 1.43 (0.87-1.13) H 12/30/20 23:43 APTT 23.0 Sec. (24.2-36.6) L 12/30/20 23:43 D-Dimer 3451.68 ng/mlDDU (0-234) H 01/02/21 08:03 ABG pH 7.403 pH Units (7.350-7.450) 12/31/20 14:59 POC ABG pCO2 40.1 mmHg (32.0-48.0) 12/30/20 15:20 ABG pCO2 45.3 mm Hg 12/31/20 14:59 POC ABG pO2 55.0 mmHg (83-108) L 12/30/20 15:20 ABG pO2 53.4 mm Hg (80.0-90.0) L 12/31/20 14:59 POC ABG HCO3 26.1 12/30/20 15:20 ABG HCO3 27.6 mmol/L (20.0-26.0) H 12/31/20 14:59 ABG O2 Saturation 86.4 % (95.0-99.0) L 12/31/20 14:59 POC ABG Base Excess 1.7 12/30/20 15:20 ABG Base Excess 2.5 mmol/L (-2.0-3.0) 12/31/20 14:59 ABG Hemoglobin 13.5 gm/dl (12.0-16.0) 12/31/20 14:59 ABG Oxyhemoglobin 87.6 (94-98) L 12/30/20 15:20 ABG Carboxyhemoglobin 0.2 % (0.0-5.0) 12/31/20 14:59 ABG Methemoglobin 0.3 % (0.0-1.5) 12/31/20 14:59 ABG Sodium 148.7 mmol/L (136.0-145.0) H 12/30/20 15:20 ABG Potassium 3.4 mmol/L (3.40-4.50) 12/30/20 15:20 ABG Chloride 113.0 mmol/L (98-107) H 12/30/20 15:20 ABG Glucose 166 mg/dL (65-95) H 12/30/20 15:20 Oxyhemoglobin 86.0 % (95.0-99.0) L 12/31/20 14:59 Carboxyhemoglobin 0.5 (0.5-1.5) 12/30/20 15:20 FiO2 100.0 % 12/31/20 14:59 FiO2 % 70.0 12/30/20 15:20 Sodium 151 mmol/L (137-145) H 01/02/21 08:03 Sodium 152 mmol/L (137-145) H 01/02/21 08:03 Potassium 4.3 mmol/L (3.6-5.0) 01/02/21 08:03 Potassium 4.3 mmol/L (3.6-5.0) 01/02/21 08:03 Chloride 114.1 mmol/L (98-107) H 01/02/21 08:03 Chloride 114.7 mmol/L (98-107) H 01/02/21 08:03 Carbon Dioxide 28 mmol/L (22-30) 01/02/21 08:03 Carbon Dioxide 28 mmol/L (22-30) 01/02/21 08:03 Anion Gap 13 mmol/L 01/02/21 08:03 Anion Gap 14 mmol/L 01/02/21 08:03 BUN 71 mg/dL (7-17) H 01/02/21 08:03 BUN 72 mg/dL (7-17) H 01/02/21 08:03 Creatinine 1.8 mg/dL (0.6-1.2) H 01/02/21 08:03 Creatinine 1.8 mg/dL (0.6-1.2) H 01/02/21 08:03 Estimated GFR 27 ml/min 01/02/21 08:03 Estimated GFR 27 ml/min 01/02/21 08:03 BUN/Creatinine Ratio 39 % 01/02/21 08:03 BUN/Creatinine Ratio 40 % 01/02/21 08:03 Glucose 163 mg/dL (65-100) H 01/02/21 08:03 Glucose 165 mg/dL (65-100) H 01/02/21 08:03 POC Glucose 131 mg/dL (70-105) H 01/02/21 11:15 Lactic Acid 1.20 mmol/L (0.7-2.0) 12/26/20 23:01 Calcium 9.1 mg/dL (8.4-10.2) 01/02/21 08:03 Calcium 9.2 mg/dL (8.4-10.2) 01/02/21 08:03 Phosphorus 1.50 mg/dL (2.5-4.5) L 12/27/20 06:52 Magnesium 2.20 mg/dL (1.7-2.3) 12/25/20 11:35 Ferritin 308.0 ng/mL (10.0-200.0) H 01/02/21 08:03 Total Bilirubin 0.20 mg/dL (0.1-1.2) 01/02/21 08:03 AST 18 units/L (5-40) 01/02/21 08:03 ALT 12 units/L (7-56) 01/02/21 08:03 Alkaline Phosphatase 69 units/L (35-129) 01/02/21 08:03 Lactate Dehydrogenase 362 units/L (91-180) H 01/02/21 08:03 C-Reactive Protein 11.00 mg/dL (0.00-1.30) H 01/02/21 08:03 Total Protein 5.5 g/dL (6.3-8.2) L 01/02/21 08:03 Albumin 2.4 g/dL (3.9-5) L 01/02/21 08:03 Albumin/Globulin Ratio 0.8 % 01/02/21 08:03 Procalcitonin 0.46 ng/mL (<0.15) 12/29/20 19:08 Arterial Blood Glucose 166 mg/dL (65-95) H 12/30/20 15:20 Arterial Blood Ionized Calcium 4.8 mg/dL (4.6-5.3) 12/30/20 15:20 Urine Color [place] (Yellow) 12/25/20 15:20 Urine Turbidity Clear (Clear) 12/25/20 15:20 Urine pH 6.0 (5.0-7.0) 12/25/20 15:20 Ur Specific [place] 1.018 (1.003-1.030) 12/25/20 15:20 Urine Protein >500 mg/dL (Negative) 12/25/20 15:20 Urine Glucose (UA) Neg mg/dL (Negative) 12/25/20 15:20 Urine Ketones Tr mg/dL (Negative) 12/25/20 15:20 Urine Blood Sm (Negative) 12/25/20 15:20 Urine Nitrite Neg (Negative) 12/25/20 15:20 Urine Bilirubin Neg (Negative) 12/25/20 15:20 Urine Urobilinogen 2.0 mg/dL (<2.0) 12/25/20 15:20 Ur Leukocyte Esterase Neg (Negative) 12/25/20 15:20 Urine WBC (Auto) 2.0 /HPF (0.0-6.0) 12/25/20 15:20 Urine RBC (Auto) 4.0 /HPF (0.0-6.0) 12/25/20 15:20 U Epithel Cells (Auto) 1.0 /HPF (0-13.0) 12/25/20 15:20 Urine Mucus Few /HPF 12/25/20 15:20 Random Vancomycin 5.7 ug/mL (0-40.0) 12/30/20 07:38 Coronavirus (PCR) Positive (Negative) A 12/29/20 09:25 Blood Type B POSITIVE 12/25/20 14:00 Antibody Screen Positive 12/25/20 14:00 Antibody Identification Anti-Fya 12/25/20 14:00 [place]/IV: Voiding Method Indwelling Catheter Active Medications - Current Medications Current Medications: Generic Name Dose Route Start Last Admin Trade Name Freq PRN Reason Stop Dose Admin Acetaminophen 650 mg 12/25/20 14:30 12/27/20 04:34 Acetaminophen 325 Mg Tab PO 650 mg Q4H PRN Administration Pain MILD(1-3)/Fever >100.5/JAIME Acetaminophen 650 mg 12/28/20 10:00 12/28/20 10:01 Acetaminophen 650 Mg Rect Supp OH 650 mg Q4H PRN Administration Pain, Mild (1-3) Al Hydrox/Mg Hydrox/Simethicone 15 ml 12/27/20 15:33 12/27/20 16:49 Alum-Mag Hydroxide-Simethicone [id number]/5ml Oral Liqd 30 Ml PO 15 ml Q4H PRN Administration Indigestion Albuterol 2.5 mg 12/25/20 16:00 12/27/20 22:11 Albuterol 2.5 Mg/3 Ml Nebu IH 2.5 mg Q4HRT PRN Administration Shortness Of Breath Amlodipine Besylate 2.5 mg 01/02/21 10:00 01/02/21 09:53 Amlodipine 5 Mg Tab PO Not Given QDAY LUCIUS Lipase/Protease/Amylase 1 each 12/29/20 16:34 Lipase 10,500/Protease 25,000/Amylase 43,750 (Units) Dr Carrillo FEEDTUBE PRN PRN For Clogged Feeding Tube Apixaban 5 mg 12/30/20 22:00 01/02/21 09:51 Apixaban 5 Mg Tab PO 5 mg Q12HR LUCIUS Administration Protocol Ascorbic Acid 1,000 mg 12/30/20 22:00 01/02/21 09:51 Ascorbic Acid 500 Mg Tab PO 1,000 mg BID LUCIUS Administration Atenolol 50 mg 12/26/20 14:00 01/02/21 09:55 Atenolol 50 Mg Tab PO Not Given DAILY LUCIUS Cholecalciferol 5,000 unit 12/30/20 19:00 01/01/21 09:19 Cholecalciferol (Vit D3) 5,000 Unit Tab PO 5,000 unit DAILY LUCIUS Administration Dexamethasone 6 mg 12/29/20 18:00 01/01/21 17:23 Dexamethasone 4 Mg/Ml Vial IV 01/07/21 18:01 6 mg Q24H LUCIUS Administration Famotidine 20 mg 12/27/20 10:00 01/02/21 09:51 Famotidine 10 Mg Tab PO 20 mg DAILY LUCIUS Administration Fluoxetine HCl 20 mg 12/26/20 14:00 01/02/21 09:53 Fluoxetine 20 Mg Cap PO 20 mg DAILY LUCIUS Administration Hydralazine HCl 10 mg 12/30/20 22:37 01/02/21 16:11 Hydralazine 20 Mg/1 Ml Inj IV 10 mg Q6H PRN Administration Hypertension Hydromorphone HCl 0.25 mg 12/25/20 15:00 12/25/20 19:32 Hydromorphone 1 Mg/1 Ml Inj IV 0.25 mg Q4H PRN Administration Pain, Moderate (4-6) Cefepime HCl 1 gm in 100 mls @ 200 mls/hr 12/29/20 18:00 01/02/21 05:38 Cefepime/Ns 1 Gm/100 Ml IV 200 mls/hr Q12H LUCIUS Administration Protocol REMDESIVIR 100 mg/ Sodium 250 mls @ 500 mls/hr 12/31/20 21:00 01/01/21 21:20 Chloride IV 01/03/21 21:29 500 mls/hr Q24HR@2100 LUCIUS Administration Insulin Human Regular 0 units 12/31/20 12:00 01/02/21 12:54 Insulin Regular, Human 100 Units/1 Ml SUB-Q Not Given Q6HR [facility] Protocol Metoclopramide HCl 5 mg 12/30/20 16:00 01/02/21 09:55 Metoclopramide 10 Mg/2 Ml Inj IV 5 mg BID LUCIUS Administration Ondansetron HCl 4 mg 12/25/20 15:00 12/27/20 08:54 Ondansetron 4 Mg/2 Ml Inj IV 4 mg Q8H PRN Administration Nausea And Vomiting Quetiapine Fumarate 50 mg 01/01/21 15:00 01/02/21 09:55 Quetiapine 25 Mg Tab PO 50 mg BID LUCIUS Administration Simple Syrup 15 ml 12/29/20 16:34 Simple Syrup 15 Ml FEEDTUBE PRN PRN Hypoglycemia Simple Syrup 30 ml 12/29/20 16:34 Simple Syrup 15 Ml FEEDTUBE PRN PRN Hypoglycemia Sodium Bicarbonate 325 mg 12/29/20 16:34 Sodium Bicarbonate 325 Mg Tab FEEDTUBE PRN PRN For Clogged Feeding Tube Sodium Chloride 10 ml 12/25/20 22:00 01/02/21 09:50 Sodium Chloride 0.9% 10 Ml Flush Syringe IV 10 ml BID LUCIUS Administration Sodium Chloride 10 ml 12/25/20 13:55 Sodium Chloride 0.9% 10 Ml Flush Syringe IV 01/05/21 13:54 PRN PRN LINE FLUSH Sodium Chloride 50 ml 12/30/20 12:00 01/01/21 21:21 Sodium Chloride 0.9% 50 Ml Ivpb IV 01/03/21 21:01 50 ml Q24HR@2100 LUCIUS Administration Zinc Sulfate 220 mg 12/30/20 22:00 01/02/21 09:51 Zinc Sulfate 220 Mg Cap PO 220 mg BID LUCIUS Administration Nutrition/Malnutrition Assess - Dietary Evaluation Nutrition/Malnutrition Findings: Nutrition Notes Start: 12/26/20 14:05 Freq: Status: Active Protocol: Document 01/01/21 12:44 (Rec: 01/01/21 12:47 [email or web address]) Nutrition Notes Initial or Follow up Reassessment Current Diagnosis Diabetes,Sepsis,Hypertension Other Pertinent Diagnosis dementia, UTI, COVID(+) Current Diet Glucerna 1.2 at 45 ml/hr Labs/Tests Na 149 Pertinent Medications Reglan Height 5 ft 3 in Weight 77.1 kg [place] Body Weight (kg) 52.27 BMI 30.1 Weight Status Obese Subjective/Other Information FU for TF tolerance. Per RN, pt tolerating. Informed RN to increase water flush. Percent of energy/protein needs met: 94%/63% Burn Absent Trauma Absent GI Symptoms None Current % PO Negligible Minimum of two criteria No Energy Intake (non-severe) <75% Estimated Energy Requirement >7 days #2 Nutrition Diagnosis Increased nutrient needs ( specify in comment below) Diagnosis Progress(for reassessment Continues documentation) #1 Nutrition Diagnosis Inadequate oral intake Diagnosis Progress(for reassessment Continues documentation) Is patient on ventilator? No Is Patient Ambulatory and/or Out of Bed No REE-([place]-confined to bed) 1429.380 Kcal/Kg value to use for calculation 18 Approximate Energy Requirements Using 1388 kcal/Kg Calculation Used for Recommendations Kcal/kg Additional Notes Protein: (>2g IBW) >104g Fluid: 1 ml/kcal or per MD Nutrition Intervention Change Diet Order: Continue Nutrition Support: Glucerna 1.2 at 45 ml/hr Flush 175 ml q4h for hypernatermia. Once resolved, flush 75 ml q4h Kcal 1,296 Protein (gm) 65 Carbohydrates (gm) 124 Fat (gm) 65 Fluid (mL) 869 Goal #1 Meet at least 60% of protein and 80% energy needs via TF Anticipated Discharge Needs: Unable to determine at this time Follow-Up By: 01/03/21 Additional Comments FU for TF tolerance, Na
[2021-01-01] MEDS: REMDESIVIR 100 MG in SODIUM CHLORIDE 0.9% 250ML 250 ML IV SCH (21:20)
[2021-01-01] MEDS: SODIUM CHLORIDE 0.9% 50 ML IVPB IV SCH (21:21)
[2021-01-02] MEDS: INSULIN REGULAR, HUMAN 100 UNITS/1 ML SUB-Q SCH ×3 (00:05→12:54)
[2021-01-02 00:54] LABS: Hematocrit 26.9 % (30.3-42.9); Hemoglobin 8.3 gm/dl (10.1-14.3); Mean Corpuscular HGB Conc 31 % (30-34); Mean Corpuscular Volume 91 fl (79-97); Platelet Count 210 K/mm3 (140-440); Red Blood Count 2.97 M/mm3 (3.65-5.03)
[2021-01-02] MEDS ORDERED: SODIUM CHLORIDE 0.9% 1000 ML 1,000 ML IV ONE (01:04)
[2021-01-02 01:08] LABS: Red Cell Distribution Width 21.1 % (13.2-15.2)
[2021-01-02 01:19] LABS: Albumin 2.1 g/dL (3.9-5)
[2021-01-02] MEDS: CEFEPIME/NS 1 GM/100 ML 1 GM/100 ML BAG IV SCH (05:38)
[2021-01-02 08:13] LABS: Hematocrit 26.2 % (30.3-42.9); Hemoglobin 8.5 gm/dl (10.1-14.3); Mean Corpuscular HGB Conc 32 % (30-34); Mean Corpuscular Volume 84 fl (79-97); Platelet Count 236 K/mm3 (140-440); Red Blood Count 3.11 M/mm3 (3.65-5.03)
[2021-01-02 08:44] LABS: Red Cell Distribution Width 20.8 % (13.2-15.2)
[2021-01-02 09:02] LABS: Albumin 2.4 g/dL (3.9-5); Calcium 9.1 mg/dL (8.4-10.2)
[2021-01-02 09:04] LABS: Calcium 9.2 mg/dL (8.4-10.2)
[2021-01-02] MEDS: ASCORBIC ACID 500 MG TAB PO SCH (09:51)
[2021-01-02] MEDS: FAMOTIDINE 10 MG TAB PO SCH (09:51)
[2021-01-02] MEDS: APIXABAN 5 MG TAB PO SCH (09:51)
[2021-01-02] MEDS: ZINC SULFATE 220 MG CAP PO SCH (09:51)
[2021-01-02] MEDS: FLUoxetine 20 MG CAP PO SCH (09:53)
[2021-01-02] MEDS: QUEtiapine 25 MG TAB PO SCH (09:55)
[2021-01-02] MEDS: METOCLOPRAMIDE 10 MG/2 ML INJ IV SCH (09:55)
[2021-01-02] MEDS: atenoloL 50 MG TAB PO SCH (09:55)
[2021-01-02] MEDS: VANCOMYCIN 1,250 MG in SODIUM CHLORIDE 0.9% 250ML 250 ML IV SCH (09:56)
[2021-01-02] MEDS ORDERED: amLODIPine 5 MG TAB PO SCH (10:00)
--- NOTE | 2021-01-02 10:56 | Electrocardiograph Report ---
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
--- NOTE | 2021-01-02 10:58 | Electrocardiograph Report ---
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
--- NOTE | 2021-01-02 12:38 | Electrocardiograph Report ---
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
--- NOTE | 2021-01-02 13:43 | Progress Note ---
Assessment and Plan Acute hypercapnic respiratory failure Acute kidney injury Acute toxic metabolic encephalopathy. Acute hypoxemic respiratory failure on noninvasive ventilation Severe sepsis, presumably due to bilateral pneumonia Bilateral pneumonia, aspiration Possible urinary tract infections History of diabetes (I discussed her deterioration with her daughter and mentioned the home hospice option; she is amenable to that and wants a call from case management & Hospice company about the kind of support she will get for home hospice) - family tentatively for home hospice tyomorrow - continue low dose seroquel (50 mg bid) - continue to hold tube feeds - continue free water flushes re: hypernatremia - continue on RTC NIV for now (await families final decision while transitioning to qhs only NIV as tolerated) - repeat CXR & ABG prn at this point - continue care as below otherwise; - continue aspiration precautions (HOB > 40 degrees) - continue lung protective strategies - continue bronchodilators with pulmonary hygiene per RT - wean per pulmonary driven protocols otherwise - avoid nephrotoxins, renally dose all medications - continue to avoid benzodiazepine's, reduce the possibility of delirium - complete AB's per ID rec's - prn analgesia per CPOT score - Maintenance of sleep-wake cycle, avoid delirium - continue enteral nutritional support at goal rate as tolerated - G.I. & VTE prophylaxis - PT/OT/ROM exercises - continue mobility protocols for pressure ulcer prophylaxis - Monitor hemodynamics closely - continue other care per attending / other consultants - discharge planning ongoing concurrently COVID SPECIFIC INTERVENTIONS - Remdesivir as per ID/Pulmonary developed protocols - continue systemic steroids for severe COVID-19 infection empirically - follow repeat COVID tests results - zinc and vitamin C supplementation - Monitor inflammatory markers per facility protocol - ferritin, Ddimer, CRP - therapeutic anticoagulation per system Protocol based on d-dimer and clinical considerations - Continue contact and airborne isolation .... Re-evaluate in am & prn CONDITION: CRITICAL PROGNOSIS: GUARDED CODE STATUS: FULL CODE The high probability of a clinically significant, sudden or life-threatening deterioration of the [respiratory, cardiovascular, GI & neurologic] system(s) required my full and direct attention, intervention and personal management. The aggregate critical care time was [35] minutes without overlap. Time includes spent on; [x] Data Review and interpretation [x] Patient assessment and monitoring of vital signs [x] Documentation [x] Medication orders and management Subjective Date of service: 01/02/21 Principal diagnosis: Ac. hypercapnic and hypoxemic resp failure; MOUNA; Severe sepsis; COVID-19 Interval history: Patient is seen today for: Acute hypercapnic and hypoxemic respiratory failure; Acute kidney injury; Acute toxic metabolic encephalopathy; Severe sepsis; Bilateral pneumonia; COVID-19 infection Seen and examined at bedside; 24hour events reviewed; nursing and respiratory care staff consulted; no adverse overnight events reported to me; resting in bed; remains on NIV RTC but breathing less labored today; no emesis or overt aspiration Objective Vital Signs - 12hr 01/02/21 01/02/21 01/02/21 02:00 02:30 03:00 Temperature Pulse Rate 66 65 63 Pulse Rate [ From Monitor] Respiratory 20 26 H 25 H Rate Blood Pressure 110/58 105/49 110/57 O2 Sat by Pulse 91 84 87 Oximetry 01/02/21 01/02/21 01/02/21 03:30 04:00 04:30 Temperature 97.6 F Pulse Rate 77 61 62 Pulse Rate [ 90 From Monitor] Respiratory 25 H 25 H 27 H Rate Blood Pressure 114/60 98/56 107/49 O2 Sat by Pulse 95 96 99 Oximetry 01/02/21 01/02/21 01/02/21 05:00 05:10 05:30 Temperature Pulse Rate 64 63 63 Pulse Rate [ From Monitor] Respiratory 26 H 31 H 27 H Rate Blood Pressure 118/52 118/62 112/55 O2 Sat by Pulse 100 100 Oximetry 01/02/21 01/02/21 01/02/21 06:00 06:30 07:00 Temperature 98.0 F Pulse Rate 68 65 67 Pulse Rate [ From Monitor] Respiratory 27 H 32 H 31 H Rate Blood Pressure 108/50 105/46 110/43 O2 Sat by Pulse 94 Oximetry 01/02/21 01/02/21 01/02/21 07:30 07:52 08:00 Temperature Pulse Rate 71 68 68 Pulse Rate [ 68 From Monitor] Respiratory 28 H 33 H 30 H Rate Blood Pressure 118/53 118/53 116/51 O2 Sat by Pulse 96 95 96 Oximetry 01/02/21 01/02/21 01/02/21 08:30 09:00 09:30 Temperature Pulse Rate 69 73 71 Pulse Rate [ From Monitor] Respiratory 30 H 31 H 34 H Rate Blood Pressure 103/46 117/51 109/54 O2 Sat by Pulse 95 95 94 Oximetry 01/02/21 01/02/21 01/02/21 09:53 09:55 10:00 Temperature Pulse Rate 72 72 75 Pulse Rate [ From Monitor] Respiratory 27 H Rate Blood Pressure 109/54 109/54 123/52 O2 Sat by Pulse 95 Oximetry 01/02/21 01/02/21 01/02/21 10:30 11:00 11:30 Temperature Pulse Rate 73 72 71 Pulse Rate [ From Monitor] Respiratory 26 H 26 H 34 H Rate Blood Pressure 118/54 113/43 106/44 O2 Sat by Pulse 94 98 98 Oximetry 01/02/21 01/02/21 01/02/21 11:32 11:47 12:00 Temperature 97.2 F L Pulse Rate 73 68 Pulse Rate [ 68 From Monitor] Respiratory 27 H 26 H Rate Blood Pressure 121/51 110/55 O2 Sat by Pulse 98 98 Oximetry 01/02/21 12:30 Temperature Pulse Rate 72 Pulse Rate [ From Monitor] Respiratory 33 H Rate Blood Pressure 115/54 O2 Sat by Pulse 99 Oximetry Constitutional: no acute distress, other (elderly obese female with mildly increased respiratory effort at rest on NIV) Eyes: non-icteric ENT: oropharynx moist, other (BIPAP FFM) Neck: supple, no lymphadenopathy, no JVD Effort: mildly labored (moderately today) Ascultation: Bilateral: diminished breath sounds, rhonchi Percussion: Bilateral: not dull Cardiovascular: regular rate and rhythm Gastrointestinal: normoactive bowel sounds, soft, non-tender, non-distended (protuberant) Integumentary: normal Extremities: no cyanosis, no edema, pink and warm, pulses normal Neurologic: non-focal exam (grossly), unable to assess Psychiatric: anxious, other (unable to assess re: AMS) CBC and BMP: 01/02/21 08:03 01/02/21 08:03 ABG, PT/INR, D-dimer: ABG ABG pH 7.403 pH Units (7.350-7.450) 12/31/20 14:59 POC ABG pCO2 40.1 mmHg (32.0-48.0) 12/30/20 15:20 ABG pCO2 45.3 mm Hg 12/31/20 14:59 POC ABG pO2 55.0 mmHg (83-108) L 12/30/20 15:20 ABG pO2 53.4 mm Hg (80.0-90.0) L 12/31/20 14:59 POC ABG HCO3 26.1 12/30/20 15:20 ABG O2 Saturation 86.4 % (95.0-99.0) L 12/31/20 14:59 PT/INR, D-dimer PT 18.1 Sec. (12.2-14.9) H 12/30/20 23:43 INR 1.43 (0.87-1.13) H 12/30/20 23:43 D-Dimer 3451.68 ng/mlDDU (0-234) H 01/02/21 08:03 Abnormal lab findings: Abnormal Labs 12/25/20 12/25/20 12/26/20 11:35 11:35 15:02 WBC 20.1 H RBC Hgb Hct MCV 77 L MCH 26 L RDW 19.1 H Plt Count 473 H Lymph % (Auto) Rankin % (Auto) Lymph # (Auto) Rankin # (Auto) Seg Neutrophils % Seg Neuts % (Manual) 89.0 H Lymphocytes % (Manual) 5.0 L Monocytes % (Manual) Seg Neutrophils # Seg Neutrophils # Man 17.9 H Lymphocytes # (Manual) 1.0 L Monocytes # (Manual) PT INR APTT D-Dimer ABG pH POC ABG pCO2 POC ABG pO2 ABG pO2 ABG HCO3 ABG O2 Saturation ABG Hemoglobin ABG Oxyhemoglobin ABG Sodium ABG Chloride ABG Glucose Oxyhemoglobin Carboxyhemoglobin Sodium 122 L Potassium 2.7 L* Chloride 80.2 L Carbon Dioxide 21 L BUN 35 H Creatinine Glucose 154 H POC Glucose 161 H Phosphorus Ferritin Lactate Dehydrogenase C-Reactive Protein Total Protein Albumin 3.5 L Arterial Blood Glucose Coronavirus (PCR) 12/26/20 12/26/20 12/26/20 15:07 15:07 21:19 WBC 17.9 H RBC Hgb Hct MCV 78 L MCH 26 L RDW 19.3 H Plt Count Lymph % (Auto) Rankin % (Auto) Lymph # (Auto) Rankin # (Auto) Seg Neutrophils % Seg Neuts % (Manual) Lymphocytes % (Manual) Monocytes % (Manual) Seg Neutrophils # Seg Neutrophils # Man Lymphocytes # (Manual) Monocytes # (Manual) PT INR APTT D-Dimer ABG pH POC ABG pCO2 POC ABG pO2 ABG pO2 ABG HCO3 ABG O2 Saturation ABG Hemoglobin ABG Oxyhemoglobin ABG Sodium ABG Chloride ABG Glucose Oxyhemoglobin Carboxyhemoglobin Sodium 122 L Potassium 2.7 L* Chloride 82.7 L Carbon Dioxide BUN 19 H Creatinine Glucose 138 H POC Glucose 142 H Phosphorus Ferritin Lactate Dehydrogenase C-Reactive Protein Total Protein Albumin Arterial Blood Glucose Coronavirus (PCR) 12/27/20 12/27/20 12/27/20 05:10 05:10 06:52 WBC 21.7 H RBC Hgb Hct MCV 78 L MCH 26 L RDW 19.2 H Plt Count Lymph % (Auto) Rankin % (Auto) Lymph # (Auto) Rankin # (Auto) Seg Neutrophils % Seg Neuts % (Manual) 92.0 H Lymphocytes % (Manual) Monocytes % (Manual) 8.0 H Seg Neutrophils # Seg Neutrophils # Man 20.0 H Lymphocytes # (Manual) 0.0 L Monocytes # (Manual) 1.7 H PT INR APTT D-Dimer ABG pH POC ABG pCO2 POC ABG pO2 ABG pO2 ABG HCO3 ABG O2 Saturation ABG Hemoglobin ABG Oxyhemoglobin ABG Sodium ABG Chloride ABG Glucose Oxyhemoglobin Carboxyhemoglobin Sodium 128 L Potassium 2.8 L* Chloride 86.3 L Carbon Dioxide BUN 21 H Creatinine Glucose 147 H POC Glucose Phosphorus 1.50 L Ferritin Lactate Dehydrogenase C-Reactive Protein Total Protein Albumin Arterial Blood Glucose Coronavirus (PCR) 12/27/20 12/27/20 12/27/20 07:33 13:16 16:42 WBC RBC Hgb Hct MCV MCH RDW Plt Count Lymph % (Auto) Rankin % (Auto) Lymph # (Auto) Rankin # (Auto) Seg Neutrophils % Seg Neuts % (Manual) Lymphocytes % (Manual) Monocytes % (Manual) Seg Neutrophils # Seg Neutrophils # Man Lymphocytes # (Manual) Monocytes # (Manual) PT INR APTT D-Dimer ABG pH POC ABG pCO2 POC ABG pO2 ABG pO2 ABG HCO3 ABG O2 Saturation ABG Hemoglobin ABG Oxyhemoglobin ABG Sodium ABG Chloride ABG Glucose Oxyhemoglobin Carboxyhemoglobin Sodium Potassium Chloride Carbon Dioxide BUN Creatinine Glucose POC Glucose 163 H 165 H 124 H Phosphorus Ferritin Lactate Dehydrogenase C-Reactive Protein Total Protein Albumin Arterial Blood Glucose Coronavirus (PCR) 12/27/20 12/27/20 12/27/20 19:00 19:21 21:58 WBC RBC Hgb Hct MCV MCH RDW Plt Count Lymph % (Auto) Rankin % (Auto) Lymph # (Auto) Rankin # (Auto) Seg Neutrophils % Seg Neuts % (Manual) Lymphocytes % (Manual) Monocytes % (Manual) Seg Neutrophils # Seg Neutrophils # Man Lymphocytes # (Manual) Monocytes # (Manual) PT INR APTT D-Dimer ABG pH POC ABG pCO2 53.3 H POC ABG pO2 51.3 L ABG pO2 ABG HCO3 ABG O2 Saturation ABG Hemoglobin ABG Oxyhemoglobin 86.9 L ABG Sodium ABG Chloride 91.0 L ABG Glucose 143 H Oxyhemoglobin Carboxyhemoglobin Sodium Potassium Chloride Carbon Dioxide BUN Creatinine Glucose POC Glucose 141 H 137 H Phosphorus Ferritin Lactate Dehydrogenase C-Reactive Protein Total Protein Albumin Arterial Blood Glucose 143 H Coronavirus (PCR) 12/28/20 12/28/20 12/28/20 07:49 10:01 10:01 WBC 15.2 H RBC Hgb Hct MCV MCH 26 L RDW 19.5 H Plt Count Lymph % (Auto) 1.8 L Rankin % (Auto) 8.2 H Lymph # (Auto) 0.3 L Rankin # (Auto) 1.2 H Seg Neutrophils % 90.0 H Seg Neuts % (Manual) Lymphocytes % (Manual) Monocytes % (Manual) Seg Neutrophils # 13.6 H Seg Neutrophils # Man Lymphocytes # (Manual) Monocytes # (Manual) PT INR APTT D-Dimer ABG pH POC ABG pCO2 POC ABG pO2 ABG pO2 ABG HCO3 ABG O2 Saturation ABG Hemoglobin ABG Oxyhemoglobin ABG Sodium ABG Chloride ABG Glucose Oxyhemoglobin Carboxyhemoglobin Sodium 133 L Potassium Chloride 94.4 L Carbon Dioxide 31 H BUN 40 H Creatinine 1.6 H D Glucose 122 H POC Glucose 122 H Phosphorus Ferritin Lactate Dehydrogenase C-Reactive Protein Total Protein Albumin Arterial Blood Glucose Coronavirus (PCR) 12/28/20 12/28/20 12/28/20 12:11 12:15 13:15 WBC RBC Hgb Hct MCV MCH RDW Plt Count Lymph % (Auto) Rankin % (Auto) Lymph # (Auto) Rankin # (Auto) Seg Neutrophils % Seg Neuts % (Manual) Lymphocytes % (Manual) Monocytes % (Manual) Seg Neutrophils # Seg Neutrophils # Man Lymphocytes # (Manual) Monocytes # (Manual) PT INR APTT D-Dimer ABG pH 7.184 L POC ABG pCO2 80.7 H POC ABG pO2 76.0 L ABG pO2 ABG HCO3 ABG O2 Saturation ABG Hemoglobin 10.3 L ABG Oxyhemoglobin 92.7 L ABG Sodium 134.5 L ABG Chloride 96.0 L ABG Glucose 119 H Oxyhemoglobin Carboxyhemoglobin 0.3 L Sodium Potassium Chloride Carbon Dioxide BUN Creatinine Glucose POC Glucose 123 H Phosphorus Ferritin Lactate Dehydrogenase C-Reactive Protein 25.50 H Total Protein Albumin Arterial Blood Glucose 119 H Coronavirus (PCR) 12/28/20 12/29/20 12/29/20 18:09 09:25 17:24 WBC RBC Hgb Hct MCV MCH RDW Plt Count Lymph % (Auto) Rankin % (Auto) Lymph # (Auto) Rankin # (Auto) Seg Neutrophils % Seg Neuts % (Manual) Lymphocytes % (Manual) Monocytes % (Manual) Seg Neutrophils # Seg Neutrophils # Man Lymphocytes # (Manual) Monocytes # (Manual) PT INR APTT D-Dimer ABG pH POC ABG pCO2 POC ABG pO2 57.8 L ABG pO2 ABG HCO3 ABG O2 Saturation ABG Hemoglobin 10.2 L ABG Oxyhemoglobin 90.4 L ABG Sodium 134.4 L ABG Chloride ABG Glucose 98 H Oxyhemoglobin Carboxyhemoglobin 0.4 L Sodium Potassium Chloride Carbon Dioxide BUN Creatinine Glucose POC Glucose 109 H Phosphorus Ferritin Lactate Dehydrogenase C-Reactive Protein Total Protein Albumin Arterial Blood Glucose 98 H Coronavirus (PCR) Positive A 12/29/20 12/29/20 12/29/20 19:08 19:08 19:08 WBC RBC Hgb Hct MCV MCH RDW Plt Count Lymph % (Auto) Rankin % (Auto) Lymph # (Auto) Rankin # (Auto) Seg Neutrophils % Seg Neuts % (Manual) Lymphocytes % (Manual) Monocytes % (Manual) Seg Neutrophils # Seg Neutrophils # Man Lymphocytes # (Manual) Monocytes # (Manual) PT INR APTT D-Dimer 2475.06 H ABG pH POC ABG pCO2 POC ABG pO2 ABG pO2 ABG HCO3 ABG O2 Saturation ABG Hemoglobin ABG Oxyhemoglobin ABG Sodium ABG Chloride ABG Glucose Oxyhemoglobin Carboxyhemoglobin Sodium Potassium Chloride Carbon Dioxide BUN Creatinine Glucose 119 H POC Glucose Phosphorus Ferritin 486.0 H Lactate Dehydrogenase 386 H C-Reactive Protein 33.60 H Total Protein Albumin Arterial Blood Glucose Coronavirus (PCR) 12/29/20 12/30/20 12/30/20 22:06 04:55 07:38 WBC RBC 3.64 L Hgb 9.8 L Hct 29.9 L MCV MCH 27 L RDW 20.3 H Plt Count Lymph % (Auto) 3.5 L Rankin % (Auto) 10.7 H Lymph # (Auto) 0.3 L Rankin # (Auto) 1.0 H Seg Neutrophils % 85.5 H Seg Neuts % (Manual) Lymphocytes % (Manual) Monocytes % (Manual) Seg Neutrophils # 8.0 H Seg Neutrophils # Man Lymphocytes # (Manual) Monocytes # (Manual) PT INR APTT D-Dimer ABG pH POC ABG pCO2 POC ABG pO2 ABG pO2 ABG HCO3 ABG O2 Saturation ABG Hemoglobin ABG Oxyhemoglobin ABG Sodium ABG Chloride ABG Glucose Oxyhemoglobin Carboxyhemoglobin Sodium Potassium Chloride Carbon Dioxide BUN Creatinine Glucose POC Glucose 120 H 123 H Phosphorus Ferritin Lactate Dehydrogenase C-Reactive Protein Total Protein Albumin Arterial Blood Glucose Coronavirus (PCR) 12/30/20 12/30/20 12/30/20 07:38 11:49 15:20 WBC RBC Hgb Hct MCV MCH RDW Plt Count Lymph % (Auto) Rankin % (Auto) Lymph # (Auto) Rankin # (Auto) Seg Neutrophils % Seg Neuts % (Manual) Lymphocytes % (Manual) Monocytes % (Manual) Seg Neutrophils # Seg Neutrophils # Man Lymphocytes # (Manual) Monocytes # (Manual) PT INR APTT D-Dimer ABG pH POC ABG pCO2 POC ABG pO2 55.0 L ABG pO2 ABG HCO3 ABG O2 Saturation ABG Hemoglobin 9.4 L ABG Oxyhemoglobin 87.6 L ABG Sodium 148.7 H ABG Chloride 113.0 H ABG Glucose 166 H Oxyhemoglobin Carboxyhemoglobin Sodium Potassium 5.5 H D Chloride 109.4 H Carbon Dioxide BUN 38 H Creatinine Glucose 133 H POC Glucose 123 H Phosphorus Ferritin Lactate Dehydrogenase C-Reactive Protein Total Protein Albumin Arterial Blood Glucose 166 H Coronavirus (PCR) 12/30/20 12/30/20 12/30/20 15:28 17:31 23:43 WBC 14.3 H RBC 3.49 L Hgb 9.6 L Hct 29.1 L MCV MCH 27 L RDW 20.2 H Plt Count Lymph % (Auto) Rankin % (Auto) Lymph # (Auto) Rankin # (Auto) Seg Neutrophils % Seg Neuts % (Manual) Lymphocytes % (Manual) Monocytes % (Manual) Seg Neutrophils # Seg Neutrophils # Man Lymphocytes # (Manual) Monocytes # (Manual) PT INR APTT D-Dimer ABG pH POC ABG pCO2 POC ABG pO2 ABG pO2 ABG HCO3 ABG O2 Saturation ABG Hemoglobin ABG Oxyhemoglobin ABG Sodium ABG Chloride ABG Glucose Oxyhemoglobin Carboxyhemoglobin Sodium Potassium Chloride 111.2 H Carbon Dioxide 21 L BUN 41 H Creatinine Glucose 143 H POC Glucose 149 H Phosphorus Ferritin Lactate Dehydrogenase C-Reactive Protein Total Protein 5.7 L Albumin 2.3 L Arterial Blood Glucose Coronavirus (PCR) 12/30/20 12/31/20 12/31/20 23:43 00:33 06:33 WBC RBC Hgb Hct MCV MCH RDW Plt Count Lymph % (Auto) Rankin % (Auto) Lymph # (Auto) Rankin # (Auto) Seg Neutrophils % Seg Neuts % (Manual) Lymphocytes % (Manual) Monocytes % (Manual) Seg Neutrophils # Seg Neutrophils # Man Lymphocytes # (Manual) Monocytes # (Manual) PT 18.1 H INR 1.43 H APTT 23.0 L D-Dimer ABG pH POC ABG pCO2 POC ABG pO2 ABG pO2 ABG HCO3 ABG O2 Saturation ABG Hemoglobin ABG Oxyhemoglobin ABG Sodium ABG Chloride ABG Glucose Oxyhemoglobin Carboxyhemoglobin Sodium Potassium Chloride Carbon Dioxide BUN Creatinine Glucose POC Glucose 237 H 198 H Phosphorus Ferritin Lactate Dehydrogenase C-Reactive Protein Total Protein Albumin Arterial Blood Glucose Coronavirus (PCR) 12/31/20 12/31/20 12/31/20 11:17 14:58 14:58 WBC 13.9 H RBC 3.19 L Hgb 9.4 L Hct 28.0 L MCV MCH RDW 20.5 H Plt Count Lymph % (Auto) Rankin % (Auto) Lymph # (Auto) Rankin # (Auto) Seg Neutrophils % Seg Neuts % (Manual) Lymphocytes % (Manual) Monocytes % (Manual) Seg Neutrophils # Seg Neutrophils # Man Lymphocytes # (Manual) Monocytes # (Manual) PT INR APTT D-Dimer 1968.92 H ABG pH POC ABG pCO2 POC ABG pO2 ABG pO2 ABG HCO3 ABG O2 Saturation ABG Hemoglobin ABG Oxyhemoglobin ABG Sodium ABG Chloride ABG Glucose Oxyhemoglobin Carboxyhemoglobin Sodium Potassium Chloride Carbon Dioxide BUN Creatinine Glucose POC Glucose 197 H Phosphorus Ferritin Lactate Dehydrogenase C-Reactive Protein Total Protein Albumin Arterial Blood Glucose Coronavirus (PCR) 12/31/20 12/31/20 12/31/20 14:58 14:59 17:54 WBC RBC Hgb Hct MCV MCH RDW Plt Count Lymph % (Auto) Rankin % (Auto) Lymph # (Auto) Rankin # (Auto) Seg Neutrophils % Seg Neuts % (Manual) Lymphocytes % (Manual) Monocytes % (Manual) Seg Neutrophils # Seg Neutrophils # Man Lymphocytes # (Manual) Monocytes # (Manual) PT INR APTT D-Dimer ABG pH POC ABG pCO2 POC ABG pO2 ABG pO2 53.4 L ABG HCO3 27.6 H ABG O2 Saturation 86.4 L ABG Hemoglobin ABG Oxyhemoglobin ABG Sodium ABG Chloride ABG Glucose Oxyhemoglobin 86.0 L Carboxyhemoglobin Sodium Potassium Chloride Carbon Dioxide BUN Creatinine Glucose POC Glucose 182 H Phosphorus Ferritin 503.3 H Lactate Dehydrogenase C-Reactive Protein Total Protein Albumin Arterial Blood Glucose Coronavirus (PCR) 12/31/20 12/31/20 01/01/21 23:13 Unknown 05:29 WBC RBC Hgb Hct MCV MCH RDW Plt Count Lymph % (Auto) Rankin % (Auto) Lymph # (Auto) Rankin # (Auto) Seg Neutrophils % Seg Neuts % (Manual) Lymphocytes % (Manual) Monocytes % (Manual) Seg Neutrophils # Seg Neutrophils # Man Lymphocytes # (Manual) Monocytes # (Manual) PT INR APTT D-Dimer ABG pH POC ABG pCO2 POC ABG pO2 ABG pO2 ABG HCO3 ABG O2 Saturation ABG Hemoglobin ABG Oxyhemoglobin ABG Sodium ABG Chloride ABG Glucose Oxyhemoglobin Carboxyhemoglobin Sodium 149 H Potassium Chloride 113.5 H Carbon Dioxide BUN 49 H Creatinine Glucose 201 H POC Glucose 176 H 192 H Phosphorus Ferritin Lactate Dehydrogenase 392 H C-Reactive Protein 23.40 H Total Protein 5.8 L Albumin 2.5 L Arterial Blood Glucose Coronavirus (PCR) 01/01/21 01/01/21 01/01/21 12:39 17:23 23:07 WBC RBC Hgb Hct MCV MCH RDW Plt Count Lymph % (Auto) Rankin % (Auto) Lymph # (Auto) Rankin # (Auto) Seg Neutrophils % Seg Neuts % (Manual) Lymphocytes % (Manual) Monocytes % (Manual) Seg Neutrophils # Seg Neutrophils # Man Lymphocytes # (Manual) Monocytes # (Manual) PT INR APTT D-Dimer ABG pH POC ABG pCO2 POC ABG pO2 ABG pO2 ABG HCO3 ABG O2 Saturation ABG Hemoglobin ABG Oxyhemoglobin ABG Sodium ABG Chloride ABG Glucose Oxyhemoglobin Carboxyhemoglobin Sodium Potassium Chloride Carbon Dioxide BUN Creatinine Glucose POC Glucose 139 H 157 H 185 H Phosphorus Ferritin Lactate Dehydrogenase C-Reactive Protein Total Protein Albumin Arterial Blood Glucose Coronavirus (PCR) 01/02/21 01/02/21 01/02/21 00:30 00:30 05:14 WBC RBC 2.97 L Hgb 8.3 L Hct 26.9 L MCV MCH RDW 21.1 H Plt Count Lymph % (Auto) Rankin % (Auto) Lymph # (Auto) Rankin # (Auto) Seg Neutrophils % Seg Neuts % (Manual) Lymphocytes % (Manual) Monocytes % (Manual) Seg Neutrophils # Seg Neutrophils # Man Lymphocytes # (Manual) Monocytes # (Manual) PT INR APTT D-Dimer ABG pH POC ABG pCO2 POC ABG pO2 ABG pO2 ABG HCO3 ABG O2 Saturation ABG Hemoglobin ABG Oxyhemoglobin ABG Sodium ABG Chloride ABG Glucose Oxyhemoglobin Carboxyhemoglobin Sodium 152 H Potassium Chloride 115.8 H Carbon Dioxide BUN 61 H Creatinine 1.5 H Glucose 227 H POC Glucose 174 H Phosphorus Ferritin Lactate Dehydrogenase C-Reactive Protein Total Protein 5.2 L Albumin 2.1 L Arterial Blood Glucose Coronavirus (PCR) 01/02/21 01/02/21 01/02/21 08:03 08:03 08:03 WBC RBC Hgb Hct MCV MCH RDW Plt Count Lymph % (Auto) Rankin % (Auto) Lymph # (Auto) Rankin # (Auto) Seg Neutrophils % Seg Neuts % (Manual) Lymphocytes % (Manual) Monocytes % (Manual) Seg Neutrophils # Seg Neutrophils # Man Lymphocytes # (Manual) Monocytes # (Manual) PT INR APTT D-Dimer 3451.68 H ABG pH POC ABG pCO2 POC ABG pO2 ABG pO2 ABG HCO3 ABG O2 Saturation ABG Hemoglobin ABG Oxyhemoglobin ABG Sodium ABG Chloride ABG Glucose Oxyhemoglobin Carboxyhemoglobin Sodium 151 H Potassium Chloride 114.1 H Carbon Dioxide BUN 71 H Creatinine 1.8 H Glucose 163 H POC Glucose Phosphorus Ferritin 308.0 H Lactate Dehydrogenase C-Reactive Protein Total Protein 5.5 L Albumin 2.4 L Arterial Blood Glucose Coronavirus (PCR) 01/02/21 01/02/21 08:03 08:03 WBC 15.3 H RBC 3.11 L Hgb 8.5 L Hct 26.2 L MCV MCH 27 L RDW 20.8 H Plt Count Lymph % (Auto) Rankin % (Auto) Lymph # (Auto) Rankin # (Auto) Seg Neutrophils % Seg Neuts % (Manual) Lymphocytes % (Manual) Monocytes % (Manual) Seg Neutrophils # Seg Neutrophils # Man Lymphocytes # (Manual) Monocytes # (Manual) PT INR APTT D-Dimer ABG pH POC ABG pCO2 POC ABG pO2 ABG pO2 ABG HCO3 ABG O2 Saturation ABG Hemoglobin ABG Oxyhemoglobin ABG Sodium ABG Chloride ABG Glucose Oxyhemoglobin Carboxyhemoglobin Sodium 152 H Potassium Chloride 114.7 H Carbon Dioxide BUN 72 H Creatinine 1.8 H Glucose 165 H POC Glucose Phosphorus Ferritin Lactate Dehydrogenase 362 H C-Reactive Protein 11.00 H Total Protein Albumin Arterial Blood Glucose Coronavirus (PCR) Chest x-ray: pending Allied health notes reviewed: nursing
--- NOTE | 2021-01-02 15:18 | Progress Note ---
Assessment and Plan Cultures: 12/25/2020 blood culture: No growth 12/26/2020 blood culture: No growth COVID PCR: positive A/P: 80-year-old female with hypertension, dementia, diabetes mellitus, admitted to the hospital with weakness: #Sepsis, likely secondary to bilateral probably aspiration pneumonia as noted on subsequent chest x-ray. UA did not show any significant pyuria. #Acute hypoxic respiratory failure: on BiPAP #COVID-19: PCR positive. #Acute encephalopathy/underlying vascular dementia, also electrolyte abnormalities Recs: IV Cefepime. Continue IV vancomycin Complete 8 days of antibiotics f/u MRSA nasal PCR stop vancomycin if negative. agree with goals of care discussion and possible hospice Continue Remdesivir to complete 5 days given COVID PCR positive. Irma Boyd MD [facility] ([facility] O: [phone] F: [phone] Subjective Date of service: 01/02/21 Principal diagnosis: Ac. hypercapnic and hypoxemic resp failure; MOUNA; Severe sepsis; COVID-19 Interval history: Afebrile, white count 15.3. Remains on biPAP Objective - Exam Narrative Exam: Physical Exam: Constitutional:unresponsive, on BiPAP Head, Ears, Nose: Normocephalic, atraumatic. Eyes: Conjunctivae/corneas clear. No icterus. No ptosis. Neck: Supple, no meningeal signs Oral: BiPAP Cardiovascular: S1, S2 normal. Respiratory: b/l rhonchi + GI: Soft, non-tender; bowel sounds normal. No peritoneal signs Musculoskeletal: No pedal edema, no cyanosis. Skin: No rash or abscess Hem/Lymphatic: No palpable cervical or supraclavicular nodes. No lymphangitis Psych: no agitation Neurological: unresponsive - Constitutional Vitals: Vital Signs Temp Pulse Resp BP Pulse Ox 97.2 F L 70 30 H 105/54 93 01/02/21 11:32 01/02/21 13:30 01/02/21 13:30 01/02/21 14:00 01/02/21 14:00 Temperature -Last 24 Hours Temperature 97.2 F Temperature 98.0 F Temperature 97.6 F Temperature 98.0 F Temperature 98.3 F Temperature 98.2 F - Labs CBC & Chem 7: 01/02/21 08:03 01/02/21 08:03 Labs: Abnormal lab results 01/01/21 01/01/21 01/02/21 Range/Units 17:23 23:07 00:30 WBC (4.5-11.0) K/mm3 RBC (3.65-5.03) M/mm3 Hgb (10.1-14.3) gm/dl Hct (30.3-42.9) % MCH (28-32) pg RDW (13.2-15.2) % D-Dimer (0-234) ng/mlDDU Sodium 152 H (137-145) mmol/L Chloride 115.8 H (98-107) mmol/L BUN 61 H (7-17) mg/dL Creatinine 1.5 H (0.6-1.2) mg/dL Glucose 227 H (65-100) mg/dL POC Glucose 157 H 185 H (70-105) mg/dL Ferritin (10.0-200.0) ng/mL Lactate Dehydrogenase (91-180) units/L C-Reactive Protein (0.00-1.30) mg/dL Total Protein 5.2 L (6.3-8.2) g/dL Albumin 2.1 L (3.9-5) g/dL 01/02/21 01/02/21 01/02/21 Range/Units 00:30 05:14 08:03 WBC (4.5-11.0) K/mm3 RBC 2.97 L (3.65-5.03) M/mm3 Hgb 8.3 L (10.1-14.3) gm/dl Hct 26.9 L (30.3-42.9) % MCH (28-32) pg RDW 21.1 H (13.2-15.2) % D-Dimer (0-234) ng/mlDDU Sodium 151 H (137-145) mmol/L Chloride 114.1 H (98-107) mmol/L BUN 71 H (7-17) mg/dL Creatinine 1.8 H (0.6-1.2) mg/dL Glucose 163 H (65-100) mg/dL POC Glucose 174 H (70-105) mg/dL Ferritin (10.0-200.0) ng/mL Lactate Dehydrogenase (91-180) units/L C-Reactive Protein (0.00-1.30) mg/dL Total Protein 5.5 L (6.3-8.2) g/dL Albumin 2.4 L (3.9-5) g/dL 01/02/21 01/02/21 01/02/21 Range/Units 08:03 08:03 08:03 WBC (4.5-11.0) K/mm3 RBC (3.65-5.03) M/mm3 Hgb (10.1-14.3) gm/dl Hct (30.3-42.9) % MCH (28-32) pg RDW (13.2-15.2) % D-Dimer 3451.68 H (0-234) ng/mlDDU Sodium 152 H (137-145) mmol/L Chloride 114.7 H (98-107) mmol/L BUN 72 H (7-17) mg/dL Creatinine 1.8 H (0.6-1.2) mg/dL Glucose 165 H (65-100) mg/dL POC Glucose (70-105) mg/dL Ferritin 308.0 H (10.0-200.0) ng/mL Lactate Dehydrogenase 362 H (91-180) units/L C-Reactive Protein 11.00 H (0.00-1.30) mg/dL Total Protein (6.3-8.2) g/dL Albumin (3.9-5) g/dL 01/02/21 01/02/21 Range/Units 08:03 11:15 WBC 15.3 H (4.5-11.0) K/mm3 RBC 3.11 L (3.65-5.03) M/mm3 Hgb 8.5 L (10.1-14.3) gm/dl Hct 26.2 L (30.3-42.9) % MCH 27 L (28-32) pg RDW 20.8 H (13.2-15.2) % D-Dimer (0-234) ng/mlDDU Sodium (137-145) mmol/L Chloride (98-107) mmol/L BUN (7-17) mg/dL Creatinine (0.6-1.2) mg/dL Glucose (65-100) mg/dL POC Glucose 131 H (70-105) mg/dL Ferritin (10.0-200.0) ng/mL Lactate Dehydrogenase (91-180) units/L C-Reactive Protein (0.00-1.30) mg/dL Total Protein (6.3-8.2) g/dL Albumin (3.9-5) g/dL
--- NOTE | 2021-01-02 17:07 | Progress Note ---
<DOMENIC SIMPSONSarah - Last Filed: 01/02/21 17:04> Assessment and Plan Assessment and plan: 85 YO Female with HTN, DM, presents ED for generalized weakness and not eating and drinking well. In the ER patient found to have hyponatremia hypokalemia dehydration and physical debility. Patient admitted to the medical floor for further evaluation and management. Now developed respiratory failure with aspiration pneumonia and positive for COVID-19. Sepsis likely secondary to bilateral probable aspiration pneumonia Acute hypoxic respiratory failure, not POA COVID-19 infection Acute encephalopathy Leukocytosis Hypernatremia Elevated D-dimer Hyperchloremia Acute kidney injury Vascular dementia Hypertension Diabetes mellitus Physical debility -CCM, infectious disease, physical therapy consulted, appreciate recommendations -COVID-19 PCR positive -Droplet/agitation precautions -Remdesivir, steroids -Wean supplemental oxygen as tolerated -Continue SPO2 monitoring -Pulmonary hygiene -Prone to sleep -Vitamin C/vitamin D/zinc -Eliquis twice daily -Empiric antibiotics -HOLD Tube feedings -Reglan scheduled -Daily weight, avoid nephrotoxic medication -SSI, Accu-Cheks every 6 -CXR shows bilateral pulmonary parenchymal disease which represent atypical pneumonia and aspiration -Trend CBC, CMP, COVID-19 inflammatory markers for risk stratification GI/DVT prophylaxis: Eliquis twice daily, PPI ,SCDs to bilateral lower extremity while in bed, Disposition: ICU, unable to transfer to inpatient hospice due to Covid 19 PCR positive, possible home hospice DNR status The high probability of a clinically significant, sudden or life threatening deterioration of the system(PHARMACIST AIDE, CVS, respiratory, renal) required my full and direct attention, intervention and personal management. The aggregate critical care time was [35] minutes. This time is in addition to time spent performing reported procedures but includes the following: [x] Data Review and interpretation [x] Patient assessment and monitoring of vital signs [x] Documentation [x] Medication orders and management History Interval history: This 85-year-old female with hypertension, diabetes, vascular dementia without behavior disturbance, cerebral atherosclerosis presented to emergency department on 12/25 with complaints of feeling weak and confusion over the past 2 weeks with inability to walk and diminished oral intake work-up in the emergency department revealed a urinary tract infection complicated by sepsis, hyponatremia, hypokalemia and debility. On subsequent CXR patient noted to have aspiration pneumonia. Patient COVID-19 PCR is positive. Patient was admitted to the hospital service with consults to infectious disease, [facility]. 12/26/20; continue IV fluids. Resume home meds, continue consistent carb with sliding scale insulin. Start on nutritional supplement as pt is Having limited oral intake. PT eval, discussed with family service caseworker for hospice placement. 12/27/20; white count remains elevated, no clear source of infection yet. Continue to replete potassium-today K was 2.8. patient spiking fever, will consult ID. 12/28/20; Discussed with patient's daughter and pt did not have covid vaccine yet. family also denies any h/o dementia, will order COVID test. patient o/n placed on BIPAP and cxr showing consolidation. transferred to ICU. Consult CC, ID following. cont gentle hydration. Family wants to keep the patient full code 12/29/20; Positive for COVID, consult ID. family wants hospice and DNR, But they also want to cont with treatment for COVID. Start on steroid, will order remdesivir if Cr level improves. 12/30/20: We will initiate on remdesivir as renal function has improved. Treat hyperkalemia with Kayexalate bicarbonate and calcium gluconate. Continue dexamethasone and BiPAP. Unable to place for inpatient hospice as patient is Covid positive. But family also wished to continue treatment for COVID-19. D-dimer noted to be elevated -we will initiate on therapeutic dose of Eliquis. Continue to monitor H&H. Will start on tube feeding, continue gentle IV fluid hydration with D5 normal saline. 12/31: Patient remains on continuous BiPAP and is on tube feedings with scheduled Reglan to prevent aspiration per [facility]. Patient has improving leukocytosis and D-dimer. Patient has hypernatremia and hyperchloremia today with slight improvement to creatinine to 1.1 from 1.2. Patient is hyperglycemic and long- acting insulin has been adjusted. We will continue to monitor LFTs while on remdesivir. Patient is not a candidate for inpatient hospice due to positive COVID-19 and only option will be home hospice which will be discussed by case betty dejesus with family. 01/01: Patient remains on 100% BiPAP therapy and was noted to be slightly more hypoxic with SPO2 ranging from upper 80s to low 90s throughout the day. Family was called and informed. Patient's MRSA PCR is still pending. Due to patient being on vancomycin per IV access nurse midline would be inappropriate because vancomycin is caustic to midline. Upon insistence of IV nurse PICC line was ordered to be placed. Dr. Zimmerman spoke to the family and they agreed upon home hospice. This was attempted to be communicated to however she was unavailable. Dr. Zimmerman stated that he will also reach out to Loli . 01/02: Patient became hypotensive overnight and received 1 L bolus of IV fluids. Per CCM we will hold tube feedings and continue therapy water flushes due to hypernatremia. Patient is more somnolent today and home hospice is here to evaluate the patient for possible admission. Patient has leukocytosis, hypernatremia, hyperchloremia and BUN/creatinine have increased. Hospitalist Physical - Constitutional Vitals: Temp Pulse Resp BP Pulse Ox 97 F L 70 29 H 141/122 76 L 01/02/21 16:11 01/02/21 17:00 01/02/21 17:00 01/02/21 17:00 01/02/21 17:00 General appearance: Present: mild distress, other (more lethargic today) - EENT Eyes: Present: PERRL - Neck Neck: Present: normal ROM - Respiratory Respiratory effort: normal Respiratory: bilateral: diminished - Cardiovascular Rhythm: regular Heart Sounds: Present: S1 & S2. Absent: systolic murmur, diastolic murmur - Extremities Extremities: pulses intact, pulses symmetrical Peripheral Pulses: within normal limits - Abdominal General gastrointestinal: soft, non-tender - Integumentary Integumentary: Present: dry - Psychiatric Psychiatric: other (less interactive ) - Neurologic Neurologic: moves all extremities - Allied Health Allied health notes reviewed: nursing, social work Results - Labs CBC & Chem 7: 01/02/21 08:03 01/02/21 08:03 Labs: Laboratory Last Values WBC 15.3 K/mm3 (4.5-11.0) H 01/02/21 08:03 RBC 3.11 M/mm3 (3.65-5.03) L 01/02/21 08:03 Hgb 8.5 gm/dl (10.1-14.3) L 01/02/21 08:03 Hct 26.2 % (30.3-42.9) L 01/02/21 08:03 MCV 84 fl (79-97) 01/02/21 08:03 MCH 27 pg (28-32) L 01/02/21 08:03 MCHC 32 % (30-34) 01/02/21 08:03 RDW 20.8 % (13.2-15.2) H 01/02/21 08:03 Plt Count 236 K/mm3 (140-440) 01/02/21 08:03 Lymph % (Auto) 3.5 % (13.4-35.0) L 12/30/20 07:38 [place] % (Auto) 10.7 % (0.0-7.3) H 12/30/20 07:38 Eos % (Auto) 0.1 % (0.0-4.3) 12/30/20 07:38 Baso % (Auto) 0.2 % (0.0-1.8) 12/30/20 07:38 Lymph # (Auto) 0.3 K/mm3 (1.2-5.4) L 12/30/20 07:38 [place] # (Auto) 1.0 K/mm3 (0.0-0.8) H 12/30/20 07:38 Eos # (Auto) 0.0 K/mm3 (0.0-0.4) 12/30/20 07:38 Baso # (Auto) 0.0 K/mm3 (0.0-0.1) 12/30/20 07:38 Add Manual Diff Complete 12/27/20 05:10 Total Counted 100 12/27/20 05:10 Seg Neutrophils % 85.5 % (40.0-70.0) H 12/30/20 07:38 Seg Neuts % (Manual) 92.0 % (40.0-70.0) H 12/27/20 05:10 Band Neutrophils % 2.0 % 12/25/20 11:35 Lymphocytes % (Manual) 5.0 % (13.4-35.0) L 12/25/20 11:35 Monocytes % (Manual) 8.0 % (0.0-7.3) H 12/27/20 05:10 Nucleated RBC % Not Reportable 12/27/20 05:10 Seg Neutrophils # 8.0 K/mm3 (1.8-7.7) H 12/30/20 07:38 Seg Neutrophils # Man 20.0 K/mm3 (1.8-7.7) H 12/27/20 05:10 Band Neutrophils # 0.0 K/mm3 12/27/20 05:10 Lymphocytes # (Manual) 0.0 K/mm3 (1.2-5.4) L 12/27/20 05:10 Abs React Lymphs (Man) 0.0 K/mm3 12/27/20 05:10 Monocytes # (Manual) 1.7 K/mm3 (0.0-0.8) H 12/27/20 05:10 Eosinophils # (Manual) 0.0 K/mm3 (0.0-0.4) 12/27/20 05:10 Basophils # (Manual) 0.0 K/mm3 (0.0-0.1) 12/27/20 05:10 Metamyelocytes # 0.0 K/mm3 12/27/20 05:10 Myelocytes # 0.0 K/mm3 12/27/20 05:10 Promyelocytes # 0.0 K/mm3 12/27/20 05:10 Blast Cells # 0.0 K/mm3 12/27/20 05:10 WBC Morphology Not Reportable 12/27/20 05:10 Hypersegmented Neuts Not Reportable 12/27/20 05:10 Hyposegmented Neuts Not Reportable 12/27/20 05:10 Hypogranular Neuts Not Reportable 12/27/20 05:10 Smudge Cells Not Reportable 12/27/20 05:10 Toxic Granulation Not Reportable 12/27/20 05:10 Toxic Vacuolation Not Reportable 12/27/20 05:10 Dohle Bodies Not Reportable 12/27/20 05:10 Pelger-Huet Anomaly Not Reportable 12/27/20 05:10 Ernie Rods Not Reportable 12/27/20 05:10 Platelet Estimate Consistent w auto 12/27/20 05:10 Clumped Platelets Not Reportable 12/27/20 05:10 Plt Clumps, EDTA Not Reportable 12/27/20 05:10 Large Platelets Few 12/27/20 05:10 Giant Platelets Not Reportable 12/27/20 05:10 Platelet Satelliting Not Reportable 12/27/20 05:10 Plt Morphology Comment Not Reportable 12/27/20 05:10 RBC Morphology Not Reportable 12/27/20 05:10 Dimorphic RBCs Not Reportable 12/27/20 05:10 Polychromasia Not Reportable 12/27/20 05:10 Hypochromasia 1+ 12/27/20 05:10 Poikilocytosis Not Reportable 12/27/20 05:10 Anisocytosis 1+ 12/27/20 05:10 Microcytosis Not Reportable 12/27/20 05:10 Macrocytosis Not Reportable 12/27/20 05:10 Spherocytes Not Reportable 12/27/20 05:10 Pappenheimer Bodies Not Reportable 12/27/20 05:10 Sickle Cells Not Reportable 12/27/20 05:10 Target Cells Not Reportable 12/27/20 05:10 Tear Drop Cells Not Reportable 12/27/20 05:10 Ovalocytes Not Reportable 12/27/20 05:10 Helmet Cells Not Reportable 12/27/20 05:10 [place] Bodies Not Reportable 12/27/20 05:10 [place] Rings Not Reportable 12/27/20 05:10 [place] Cells Not Reportable 12/27/20 05:10 Bite Cells Not Reportable 12/27/20 05:10 Crenated Cell Not Reportable 12/27/20 05:10 Elliptocytes Not Reportable 12/27/20 05:10 Acanthocytes (Spur) Not Reportable 12/27/20 05:10 Rouleaux Not Reportable 12/27/20 05:10 Hemoglobin C Crystals Not Reportable 12/27/20 05:10 Schistocytes Not Reportable 12/27/20 05:10 Malaria parasites Not Reportable 12/27/20 05:10 [place] Bodies Not Reportable 12/27/20 05:10 Hem Pathologist Commnt No 12/27/20 05:10 PT 18.1 Sec. (12.2-14.9) H 12/30/20 23:43 INR 1.43 (0.87-1.13) H 12/30/20 23:43 APTT 23.0 Sec. (24.2-36.6) L 12/30/20 23:43 D-Dimer 3451.68 ng/mlDDU (0-234) H 01/02/21 08:03 ABG pH 7.403 pH Units (7.350-7.450) 12/31/20 14:59 POC ABG pCO2 40.1 mmHg (32.0-48.0) 12/30/20 15:20 ABG pCO2 45.3 mm Hg 12/31/20 14:59 POC ABG pO2 55.0 mmHg (83-108) L 12/30/20 15:20 ABG pO2 53.4 mm Hg (80.0-90.0) L 12/31/20 14:59 POC ABG HCO3 26.1 12/30/20 15:20 ABG HCO3 27.6 mmol/L (20.0-26.0) H 12/31/20 14:59 ABG O2 Saturation 86.4 % (95.0-99.0) L 12/31/20 14:59 POC ABG Base Excess 1.7 12/30/20 15:20 ABG Base Excess 2.5 mmol/L (-2.0-3.0) 12/31/20 14:59 ABG Hemoglobin 13.5 gm/dl (12.0-16.0) 12/31/20 14:59 ABG Oxyhemoglobin 87.6 (94-98) L 12/30/20 15:20 ABG Carboxyhemoglobin 0.2 % (0.0-5.0) 12/31/20 14:59 ABG Methemoglobin 0.3 % (0.0-1.5) 12/31/20 14:59 ABG Sodium 148.7 mmol/L (136.0-145.0) H 12/30/20 15:20 ABG Potassium 3.4 mmol/L (3.40-4.50) 12/30/20 15:20 ABG Chloride 113.0 mmol/L (98-107) H 12/30/20 15:20 ABG Glucose 166 mg/dL (65-95) H 12/30/20 15:20 Oxyhemoglobin 86.0 % (95.0-99.0) L 12/31/20 14:59 Carboxyhemoglobin 0.5 (0.5-1.5) 12/30/20 15:20 FiO2 100.0 % 12/31/20 14:59 FiO2 % 70.0 12/30/20 15:20 Sodium 151 mmol/L (137-145) H 01/02/21 08:03 Sodium 152 mmol/L (137-145) H 01/02/21 08:03 Potassium 4.3 mmol/L (3.6-5.0) 01/02/21 08:03 Potassium 4.3 mmol/L (3.6-5.0) 01/02/21 08:03 Chloride 114.1 mmol/L (98-107) H 01/02/21 08:03 Chloride 114.7 mmol/L (98-107) H 01/02/21 08:03 Carbon Dioxide 28 mmol/L (22-30) 01/02/21 08:03 Carbon Dioxide 28 mmol/L (22-30) 01/02/21 08:03 Anion Gap 13 mmol/L 01/02/21 08:03 Anion Gap 14 mmol/L 01/02/21 08:03 BUN 71 mg/dL (7-17) H 01/02/21 08:03 BUN 72 mg/dL (7-17) H 01/02/21 08:03 Creatinine 1.8 mg/dL (0.6-1.2) H 01/02/21 08:03 Creatinine 1.8 mg/dL (0.6-1.2) H 01/02/21 08:03 Estimated GFR 27 ml/min 01/02/21 08:03 Estimated GFR 27 ml/min 01/02/21 08:03 BUN/Creatinine Ratio 39 % 01/02/21 08:03 BUN/Creatinine Ratio 40 % 01/02/21 08:03 Glucose 163 mg/dL (65-100) H 01/02/21 08:03 Glucose 165 mg/dL (65-100) H 01/02/21 08:03 POC Glucose 131 mg/dL (70-105) H 01/02/21 11:15 Lactic Acid 1.20 mmol/L (0.7-2.0) 12/26/20 23:01 Calcium 9.1 mg/dL (8.4-10.2) 01/02/21 08:03 Calcium 9.2 mg/dL (8.4-10.2) 01/02/21 08:03 Phosphorus 1.50 mg/dL (2.5-4.5) L 12/27/20 06:52 Magnesium 2.20 mg/dL (1.7-2.3) 12/25/20 11:35 Ferritin 308.0 ng/mL (10.0-200.0) H 01/02/21 08:03 Total Bilirubin 0.20 mg/dL (0.1-1.2) 01/02/21 08:03 AST 18 units/L (5-40) 01/02/21 08:03 ALT 12 units/L (7-56) 01/02/21 08:03 Alkaline Phosphatase 69 units/L (35-129) 01/02/21 08:03 Lactate Dehydrogenase 362 units/L (91-180) H 01/02/21 08:03 C-Reactive Protein 11.00 mg/dL (0.00-1.30) H 01/02/21 08:03 Total Protein 5.5 g/dL (6.3-8.2) L 01/02/21 08:03 Albumin 2.4 g/dL (3.9-5) L 01/02/21 08:03 Albumin/Globulin Ratio 0.8 % 01/02/21 08:03 Procalcitonin 0.46 ng/mL (<0.15) 12/29/20 19:08 Arterial Blood Glucose 166 mg/dL (65-95) H 12/30/20 15:20 Arterial Blood Ionized Calcium 4.8 mg/dL (4.6-5.3) 12/30/20 15:20 Urine Color [place]ania (Yellow) 12/25/20 15:20 Urine Turbidity Clear (Clear) 12/25/20 15:20 Urine pH 6.0 (5.0-7.0) 12/25/20 15:20 Ur Specific [place] 1.018 (1.003-1.030) 12/25/20 15:20 Urine Protein >500 mg/dL (Negative) 12/25/20 15:20 Urine Glucose (UA) Neg mg/dL (Negative) 12/25/20 15:20 Urine Ketones Tr mg/dL (Negative) 12/25/20 15:20 Urine Blood Sm (Negative) 12/25/20 15:20 Urine Nitrite Neg (Negative) 12/25/20 15:20 Urine Bilirubin Neg (Negative) 12/25/20 15:20 Urine Urobilinogen 2.0 mg/dL (<2.0) 12/25/20 15:20 Ur Leukocyte Esterase Neg (Negative) 12/25/20 15:20 Urine WBC (Auto) 2.0 /HPF (0.0-6.0) 12/25/20 15:20 Urine RBC (Auto) 4.0 /HPF (0.0-6.0) 12/25/20 15:20 U Epithel Cells (Auto) 1.0 /HPF (0-13.0) 12/25/20 15:20 Urine Mucus Few /HPF 12/25/20 15:20 Random Vancomycin 5.7 ug/mL (0-40.0) 12/30/20 07:38 Coronavirus (PCR) Positive (Negative) A 12/29/20 09:25 Blood Type B POSITIVE 12/25/20 14:00 Antibody Screen Positive 12/25/20 14:00 Antibody Identification Anti-Fya 12/25/20 14:00 Fermin/IV: Voiding Method Indwelling Catheter Active Medications - Current Medications Current Medications: Generic Name Dose Route Start Last Admin Trade Name Freq PRN Reason Stop Dose Admin Acetaminophen 650 mg 12/25/20 14:30 12/27/20 04:34 Acetaminophen 325 Mg Tab PO 650 mg Q4H PRN Administration Pain MILD(1-3)/Fever >100.5/JAIME Acetaminophen 650 mg 12/28/20 10:00 12/28/20 10:01 Acetaminophen 650 Mg Rect Supp MN 650 mg Q4H PRN Administration Pain, Mild (1-3) Al Hydrox/Mg Hydrox/Simethicone 15 ml 12/27/20 15:33 12/27/20 16:49 Alum-Mag Hydroxide-Simethicone [id number]/5ml Oral Liqd 30 Ml PO 15 ml Q4H PRN Administration Indigestion Albuterol 2.5 mg 12/25/20 16:00 12/27/20 22:11 Albuterol 2.5 Mg/3 Ml Nebu IH 2.5 mg Q4HRT PRN Administration Shortness Of Breath Amlodipine Besylate 2.5 mg 01/02/21 10:00 01/02/21 09:53 Amlodipine 5 Mg Tab PO Not Given QDAY LUCIUS Lipase/Protease/Amylase 1 each 12/29/20 16:34 Lipase 10,500/Protease 25,000/Amylase 43,750 (Units) Dr Carrillo FEEDTUBE PRN PRN For Clogged Feeding Tube Apixaban 5 mg 12/30/20 22:00 01/02/21 09:51 Apixaban 5 Mg Tab PO 5 mg Q12HR LUCIUS Administration Protocol Ascorbic Acid 1,000 mg 12/30/20 22:00 01/02/21 09:51 Ascorbic Acid 500 Mg Tab PO 1,000 mg BID LUCIUS Administration Atenolol 50 mg 12/26/20 14:00 01/02/21 09:55 Atenolol 50 Mg Tab PO Not Given DAILY LUCIUS Cholecalciferol 5,000 unit 12/30/20 19:00 01/01/21 09:19 Cholecalciferol (Vit D3) 5,000 Unit Tab PO 5,000 unit DAILY LUCIUS Administration Dexamethasone 6 mg 12/29/20 18:00 01/01/21 17:23 Dexamethasone 4 Mg/Ml Vial IV 01/07/21 18:01 6 mg Q24H LUCIUS Administration Famotidine 20 mg 12/27/20 10:00 01/02/21 09:51 Famotidine 10 Mg Tab PO 20 mg DAILY LUCIUS Administration Fluoxetine HCl 20 mg 12/26/20 14:00 01/02/21 09:53 Fluoxetine 20 Mg Cap PO 20 mg DAILY LUCIUS Administration Hydralazine HCl 10 mg 12/30/20 22:37 01/02/21 16:11 Hydralazine 20 Mg/1 Ml Inj IV 10 mg Q6H PRN Administration Hypertension Hydromorphone HCl 0.25 mg 12/25/20 15:00 12/25/20 19:32 Hydromorphone 1 Mg/1 Ml Inj IV 0.25 mg Q4H PRN Administration Pain, Moderate (4-6) Cefepime HCl 1 gm in 100 mls @ 200 mls/hr 12/29/20 18:00 01/02/21 05:38 Cefepime/Ns 1 Gm/100 Ml IV 200 mls/hr Q12H LUCIUS Administration Protocol REMDESIVIR 100 mg/ Sodium 250 mls @ 500 mls/hr 12/31/20 21:00 01/01/21 21:20 Chloride IV 01/03/21 21:29 500 mls/hr Q24HR@2100 LUCIUS Administration Insulin Human Regular 0 units 12/31/20 12:00 01/02/21 12:54 Insulin Regular, Human 100 Units/1 Ml SUB-Q Not Given Q6HR [facility] Protocol Metoclopramide HCl 5 mg 12/30/20 16:00 01/02/21 09:55 Metoclopramide 10 Mg/2 Ml Inj IV 5 mg BID LUCIUS Administration Ondansetron HCl 4 mg 12/25/20 15:00 12/27/20 08:54 Ondansetron 4 Mg/2 Ml Inj IV 4 mg Q8H PRN Administration Nausea And Vomiting Quetiapine Fumarate 50 mg 01/01/21 15:00 01/02/21 09:55 Quetiapine 25 Mg Tab PO 50 mg BID LUCIUS Administration Simple Syrup 15 ml 12/29/20 16:34 Simple Syrup 15 Ml FEEDTUBE PRN PRN Hypoglycemia Simple Syrup 30 ml 12/29/20 16:34 Simple Syrup 15 Ml FEEDTUBE PRN PRN Hypoglycemia Sodium Bicarbonate 325 mg 12/29/20 16:34 Sodium Bicarbonate 325 Mg Tab FEEDTUBE PRN PRN For Clogged Feeding Tube Sodium Chloride 10 ml 12/25/20 22:00 01/02/21 09:50 Sodium Chloride 0.9% 10 Ml Flush Syringe IV 10 ml BID LUCIUS Administration Sodium Chloride 10 ml 12/25/20 13:55 Sodium Chloride 0.9% 10 Ml Flush Syringe IV 01/05/21 13:54 PRN PRN LINE FLUSH Sodium Chloride 50 ml 12/30/20 12:00 01/01/21 21:21 Sodium Chloride 0.9% 50 Ml Ivpb IV 01/03/21 21:01 50 ml Q24HR@2100 LUCIUS Administration Zinc Sulfate 220 mg 12/30/20 22:00 01/02/21 09:51 Zinc Sulfate 220 Mg Cap PO 220 mg BID LUCIUS Administration Nutrition/Malnutrition Assess - Dietary Evaluation Nutrition/Malnutrition Findings: Nutrition Notes Start: 12/26/20 14:05 Freq: Status: Active Protocol: Document 01/01/21 12:44 JESSICA (Rec: 01/01/21 12:47 JESSICA [id number]) Nutrition Notes Initial or Follow up Reassessment Current Diagnosis Diabetes,Sepsis,Hypertension Other Pertinent Diagnosis dementia, UTI, COVID(+) Current Diet Glucerna 1.2 at 45 ml/hr Labs/Tests Na 149 Pertinent Medications Reglan Height 5 ft 3 in Weight 77.1 kg [place] Body Weight (kg) 52.27 BMI 30.1 Weight Status Obese Subjective/Other Information FU for TF tolerance. Per RN, pt tolerating. Informed RN to increase water flush. Percent of energy/protein needs met: 94%/63% Burn Absent Trauma Absent GI Symptoms None Current % PO Negligible Minimum of two criteria No Energy Intake (non-severe) <75% Estimated Energy Requirement >7 days #2 Nutrition Diagnosis Increased nutrient needs ( specify in comment below) Diagnosis Progress(for reassessment Continues documentation) #1 Nutrition Diagnosis Inadequate oral intake Diagnosis Progress(for reassessment Continues documentation) Is patient on ventilator? No Is Patient Ambulatory and/or Out of Bed No REE-([place]-confined to bed) 1429.380 Kcal/Kg value to use for calculation 18 Approximate Energy Requirements Using 1388 kcal/Kg Calculation Used for Recommendations Kcal/kg Additional Notes Protein: (>2g IBW) >104g Fluid: 1 ml/kcal or per MD Nutrition Intervention Change Diet Order: Continue Nutrition Support: Glucerna 1.2 at 45 ml/hr Flush 175 ml q4h for hypernatermia. Once resolved, flush 75 ml q4h Kcal 1,296 Protein (gm) 65 Carbohydrates (gm) 124 Fat (gm) 65 Fluid (mL) 869 Goal #1 Meet at least 60% of protein and 80% energy needs via TF Anticipated Discharge Needs: Unable to determine at this time Follow-Up By: 01/03/21 Additional Comments FU for TF tolerance, Na <TYRON GIBSON - Last Filed: 01/02/21 18:25> Assessment and Plan Assessment and plan: Patient seen and examined, oxygen saturations are in the 90s, ever patient is unresponsive. Family is aware, states that they will come to visit the patient, poor prognosis at this time. Hospitalist Physical - Constitutional Vitals: Temp Pulse Resp BP Pulse Ox 97 F L 70 29 H 141/122 76 L 01/02/21 16:11 01/02/21 17:00 01/02/21 17:00 01/02/21 17:00 01/02/21 17:00 Results - Labs CBC & Chem 7: 01/02/21 08:03 01/02/21 08:03 Labs: Laboratory Last Values WBC 15.3 K/mm3 (4.5-11.0) H 01/02/21 08:03 RBC 3.11 M/mm3 (3.65-5.03) L 01/02/21 08:03 Hgb 8.5 gm/dl (10.1-14.3) L 01/02/21 08:03 Hct 26.2 % (30.3-42.9) L 01/02/21 08:03 MCV 84 fl (79-97) 01/02/21 08:03 MCH 27 pg (28-32) L 01/02/21 08:03 MCHC 32 % (30-34) 01/02/21 08:03 RDW 20.8 % (13.2-15.2) H 01/02/21 08:03 Plt Count 236 K/mm3 (140-440) 01/02/21 08:03 Lymph % (Auto) 3.5 % (13.4-35.0) L 12/30/20 07:38 [place] % (Auto) 10.7 % (0.0-7.3) H 12/30/20 07:38 Eos % (Auto) 0.1 % (0.0-4.3) 12/30/20 07:38 Baso % (Auto) 0.2 % (0.0-1.8) 12/30/20 07:38 Lymph # (Auto) 0.3 K/mm3 (1.2-5.4) L 12/30/20 07:38 [place] # (Auto) 1.0 K/mm3 (0.0-0.8) H 12/30/20 07:38 Eos # (Auto) 0.0 K/mm3 (0.0-0.4) 12/30/20 07:38 Baso # (Auto) 0.0 K/mm3 (0.0-0.1) 12/30/20 07:38 Add Manual Diff Complete 12/27/20 05:10 Total Counted 100 12/27/20 05:10 Seg Neutrophils % 85.5 % (40.0-70.0) H 12/30/20 07:38 Seg Neuts % (Manual) 92.0 % (40.0-70.0) H 12/27/20 05:10 Band Neutrophils % 2.0 % 12/25/20 11:35 Lymphocytes % (Manual) 5.0 % (13.4-35.0) L 12/25/20 11:35 Monocytes % (Manual) 8.0 % (0.0-7.3) H 12/27/20 05:10 Nucleated RBC % Not Reportable 12/27/20 05:10 Seg Neutrophils # 8.0 K/mm3 (1.8-7.7) H 12/30/20 07:38 Seg Neutrophils # Man 20.0 K/mm3 (1.8-7.7) H 12/27/20 05:10 Band Neutrophils # 0.0 K/mm3 12/27/20 05:10 Lymphocytes # (Manual) 0.0 K/mm3 (1.2-5.4) L 12/27/20 05:10 Abs React Lymphs (Man) 0.0 K/mm3 12/27/20 05:10 Monocytes # (Manual) 1.7 K/mm3 (0.0-0.8) H 12/27/20 05:10 Eosinophils # (Manual) 0.0 K/mm3 (0.0-0.4) 12/27/20 05:10 Basophils # (Manual) 0.0 K/mm3 (0.0-0.1) 12/27/20 05:10 Metamyelocytes # 0.0 K/mm3 12/27/20 05:10 Myelocytes # 0.0 K/mm3 12/27/20 05:10 Promyelocytes # 0.0 K/mm3 12/27/20 05:10 Blast Cells # 0.0 K/mm3 12/27/20 05:10 WBC Morphology Not Reportable 12/27/20 05:10 Hypersegmented Neuts Not Reportable 12/27/20 05:10 Hyposegmented Neuts Not Reportable 12/27/20 05:10 Hypogranular Neuts Not Reportable 12/27/20 05:10 Smudge Cells Not Reportable 12/27/20 05:10 Toxic Granulation Not Reportable 12/27/20 05:10 Toxic Vacuolation Not Reportable 12/27/20 05:10 Dohle Bodies Not Reportable 12/27/20 05:10 Pelger-Huet Anomaly Not Reportable 12/27/20 05:10 Ernie Rods Not Reportable 12/27/20 05:10 Platelet Estimate Consistent w auto 12/27/20 05:10 Clumped Platelets Not Reportable 12/27/20 05:10 Plt Clumps, EDTA Not Reportable 12/27/20 05:10 Large Platelets Few 12/27/20 05:10 Giant Platelets Not Reportable 12/27/20 05:10 Platelet Satelliting Not Reportable 12/27/20 05:10 Plt Morphology Comment Not Reportable 12/27/20 05:10 RBC Morphology Not Reportable 12/27/20 05:10 Dimorphic RBCs Not Reportable 12/27/20 05:10 Polychromasia Not Reportable 12/27/20 05:10 Hypochromasia 1+ 12/27/20 05:10 Poikilocytosis Not Reportable 12/27/20 05:10 Anisocytosis 1+ 12/27/20 05:10 Microcytosis Not Reportable 12/27/20 05:10 Macrocytosis Not Reportable 12/27/20 05:10 Spherocytes Not Reportable 12/27/20 05:10 Pappenheimer Bodies Not Reportable 12/27/20 05:10 Sickle Cells Not Reportable 12/27/20 05:10 Target Cells Not Reportable 12/27/20 05:10 Tear Drop Cells Not Reportable 12/27/20 05:10 Ovalocytes Not Reportable 12/27/20 05:10 Helmet Cells Not Reportable 12/27/20 05:10 [place] Bodies Not Reportable 12/27/20 05:10 [place] Rings Not Reportable 12/27/20 05:10 [place] Cells Not Reportable 12/27/20 05:10 Bite Cells Not Reportable 12/27/20 05:10 Crenated Cell Not Reportable 12/27/20 05:10 Elliptocytes Not Reportable 12/27/20 05:10 Acanthocytes (Spur) Not Reportable 12/27/20 05:10 Rouleaux Not Reportable 12/27/20 05:10 Hemoglobin C Crystals Not Reportable 12/27/20 05:10 Schistocytes Not Reportable 12/27/20 05:10 Malaria parasites Not Reportable 12/27/20 05:10 Loius Bodies Not Reportable 12/27/20 05:10 Hem Pathologist Commnt No 12/27/20 05:10 PT 18.1 Sec. (12.2-14.9) H 12/30/20 23:43 INR 1.43 (0.87-1.13) H 12/30/20 23:43 APTT 23.0 Sec. (24.2-36.6) L 12/30/20 23:43 D-Dimer 3451.68 ng/mlDDU (0-234) H 01/02/21 08:03 ABG pH 7.403 pH Units (7.350-7.450) 12/31/20 14:59 POC ABG pCO2 40.1 mmHg (32.0-48.0) 12/30/20 15:20 ABG pCO2 45.3 mm Hg 12/31/20 14:59 POC ABG pO2 55.0 mmHg (83-108) L 12/30/20 15:20 ABG pO2 53.4 mm Hg (80.0-90.0) L 12/31/20 14:59 POC ABG HCO3 26.1 12/30/20 15:20 ABG HCO3 27.6 mmol/L (20.0-26.0) H 12/31/20 14:59 ABG O2 Saturation 86.4 % (95.0-99.0) L 12/31/20 14:59 POC ABG Base Excess 1.7 12/30/20 15:20 ABG Base Excess 2.5 mmol/L (-2.0-3.0) 12/31/20 14:59 ABG Hemoglobin 13.5 gm/dl (12.0-16.0) 12/31/20 14:59 ABG Oxyhemoglobin 87.6 (94-98) L 12/30/20 15:20 ABG Carboxyhemoglobin 0.2 % (0.0-5.0) 12/31/20 14:59 ABG Methemoglobin 0.3 % (0.0-1.5) 12/31/20 14:59 ABG Sodium 148.7 mmol/L (136.0-145.0) H 12/30/20 15:20 ABG Potassium 3.4 mmol/L (3.40-4.50) 12/30/20 15:20 ABG Chloride 113.0 mmol/L (98-107) H 12/30/20 15:20 ABG Glucose 166 mg/dL (65-95) H 12/30/20 15:20 Oxyhemoglobin 86.0 % (95.0-99.0) L 12/31/20 14:59 Carboxyhemoglobin 0.5 (0.5-1.5) 12/30/20 15:20 FiO2 100.0 % 12/31/20 14:59 FiO2 % 70.0 12/30/20 15:20 Sodium 151 mmol/L (137-145) H 01/02/21 08:03 Sodium 152 mmol/L (137-145) H 01/02/21 08:03 Potassium 4.3 mmol/L (3.6-5.0) 01/02/21 08:03 Potassium 4.3 mmol/L (3.6-5.0) 01/02/21 08:03 Chloride 114.1 mmol/L (98-107) H 01/02/21 08:03 Chloride 114.7 mmol/L (98-107) H 01/02/21 08:03 Carbon Dioxide 28 mmol/L (22-30) 01/02/21 08:03 Carbon Dioxide 28 mmol/L (22-30) 01/02/21 08:03 Anion Gap 13 mmol/L 01/02/21 08:03 Anion Gap 14 mmol/L 01/02/21 08:03 BUN 71 mg/dL (7-17) H 01/02/21 08:03 BUN 72 mg/dL (7-17) H 01/02/21 08:03 Creatinine 1.8 mg/dL (0.6-1.2) H 01/02/21 08:03 Creatinine 1.8 mg/dL (0.6-1.2) H 01/02/21 08:03 Estimated GFR 27 ml/min 01/02/21 08:03 Estimated GFR 27 ml/min 01/02/21 08:03 BUN/Creatinine Ratio 39 % 01/02/21 08:03 BUN/Creatinine Ratio 40 % 01/02/21 08:03 Glucose 163 mg/dL (65-100) H 01/02/21 08:03 Glucose 165 mg/dL (65-100) H 01/02/21 08:03 POC Glucose 131 mg/dL (70-105) H 01/02/21 11:15 Lactic Acid 1.20 mmol/L (0.7-2.0) 12/26/20 23:01 Calcium 9.1 mg/dL (8.4-10.2) 01/02/21 08:03 Calcium 9.2 mg/dL (8.4-10.2) 01/02/21 08:03 Phosphorus 1.50 mg/dL (2.5-4.5) L 12/27/20 06:52 Magnesium 2.20 mg/dL (1.7-2.3) 12/25/20 11:35 Ferritin 308.0 ng/mL (10.0-200.0) H 01/02/21 08:03 Total Bilirubin 0.20 mg/dL (0.1-1.2) 01/02/21 08:03 AST 18 units/L (5-40) 01/02/21 08:03 ALT 12 units/L (7-56) 01/02/21 08:03 Alkaline Phosphatase 69 units/L (35-129) 01/02/21 08:03 Lactate Dehydrogenase 362 units/L (91-180) H 01/02/21 08:03 C-Reactive Protein 11.00 mg/dL (0.00-1.30) H 01/02/21 08:03 Total Protein 5.5 g/dL (6.3-8.2) L 01/02/21 08:03 Albumin 2.4 g/dL (3.9-5) L 01/02/21 08:03 Albumin/Globulin Ratio 0.8 % 01/02/21 08:03 Procalcitonin 0.46 ng/mL (<0.15) 12/29/20 19:08 Arterial Blood Glucose 166 mg/dL (65-95) H 12/30/20 15:20 Arterial Blood Ionized Calcium 4.8 mg/dL (4.6-5.3) 12/30/20 15:20 Urine Color Shania (Yellow) 12/25/20 15:20 Urine Turbidity Clear (Clear) 12/25/20 15:20 Urine pH 6.0 (5.0-7.0) 12/25/20 15:20 Ur Specific [place] 1.018 (1.003-1.030) 12/25/20 15:20 Urine Protein >500 mg/dL (Negative) 12/25/20 15:20 Urine Glucose (UA) Neg mg/dL (Negative) 12/25/20 15:20 Urine Ketones Tr mg/dL (Negative) 12/25/20 15:20 Urine Blood Sm (Negative) 12/25/20 15:20 Urine Nitrite Neg (Negative) 12/25/20 15:20 Urine Bilirubin Neg (Negative) 12/25/20 15:20 Urine Urobilinogen 2.0 mg/dL (<2.0) 12/25/20 15:20 Ur Leukocyte Esterase Neg (Negative) 12/25/20 15:20 Urine WBC (Auto) 2.0 /HPF (0.0-6.0) 12/25/20 15:20 Urine RBC (Auto) 4.0 /HPF (0.0-6.0) 12/25/20 15:20 U Epithel Cells (Auto) 1.0 /HPF (0-13.0) 12/25/20 15:20 Urine Mucus Few /HPF 12/25/20 15:20 Random Vancomycin 5.7 ug/mL (0-40.0) 12/30/20 07:38 Coronavirus (PCR) Positive (Negative) A 12/29/20 09:25 Blood Type B POSITIVE 12/25/20 14:00 Antibody Screen Positive 12/25/20 14:00 Antibody Identification Anti-Fya 12/25/20 14:00 Fermin/IV: Voiding Method Indwelling Catheter Active Medications - Current Medications Current Medications: Generic Name Dose Route Start Last Admin Trade Name Freq PRN Reason Stop Dose Admin Acetaminophen 650 mg 12/25/20 14:30 12/27/20 04:34 Acetaminophen 325 Mg Tab PO 650 mg Q4H PRN Administration Pain MILD(1-3)/Fever >100.5/JAIME Acetaminophen 650 mg 12/28/20 10:00 12/28/20 10:01 Acetaminophen 650 Mg Rect Supp MN 650 mg Q4H PRN Administration Pain, Mild (1-3) Al Hydrox/Mg Hydrox/Simethicone 15 ml 12/27/20 15:33 12/27/20 16:49 Alum-Mag Hydroxide-Simethicone 096-754-61ex/5ml Oral Liqd 30 Ml PO 15 ml Q4H PRN Administration Indigestion Albuterol 2.5 mg 12/25/20 16:00 12/27/20 22:11 Albuterol 2.5 Mg/3 Ml Nebu IH 2.5 mg Q4HRT PRN Administration Shortness Of Breath Amlodipine Besylate 2.5 mg 01/02/21 10:00 01/02/21 09:53 Amlodipine 5 Mg Tab PO Not Given QDAY LUCIUS Lipase/Protease/Amylase 1 each 12/29/20 16:34 Lipase 10,500/Protease 25,000/Amylase 43,750 (Units) Dr Carrillo FEEDTUBE PRN PRN For Clogged Feeding Tube Apixaban 5 mg 12/30/20 22:00 01/02/21 09:51 Apixaban 5 Mg Tab PO 5 mg Q12HR LUCIUS Administration Protocol Ascorbic Acid 1,000 mg 12/30/20 22:00 01/02/21 09:51 Ascorbic Acid 500 Mg Tab PO 1,000 mg BID LUCIUS Administration Atenolol 50 mg 12/26/20 14:00 01/02/21 09:55 Atenolol 50 Mg Tab PO Not Given DAILY LUCIUS Cholecalciferol 5,000 unit 12/30/20 19:00 01/01/21 09:19 Cholecalciferol (Vit D3) 5,000 Unit Tab PO 5,000 unit DAILY LUCIUS Administration Dexamethasone 6 mg 12/29/20 18:00 01/01/21 17:23 Dexamethasone 4 Mg/Ml Vial IV 01/07/21 18:01 6 mg Q24H LUCIUS Administration Famotidine 20 mg 12/27/20 10:00 01/02/21 09:51 Famotidine 10 Mg Tab PO 20 mg DAILY LUCIUS Administration Fluoxetine HCl 20 mg 12/26/20 14:00 01/02/21 09:53 Fluoxetine 20 Mg Cap PO 20 mg DAILY LUCIUS Administration Hydralazine HCl 10 mg 12/30/20 22:37 01/02/21 16:11 Hydralazine 20 Mg/1 Ml Inj IV 10 mg Q6H PRN Administration Hypertension Hydromorphone HCl 0.25 mg 12/25/20 15:00 12/25/20 19:32 Hydromorphone 1 Mg/1 Ml Inj IV 0.25 mg Q4H PRN Administration Pain, Moderate (4-6) Cefepime HCl 1 gm in 100 mls @ 200 mls/hr 12/29/20 18:00 01/02/21 05:38 Cefepime/Ns 1 Gm/100 Ml IV 200 mls/hr Q12H LUCIUS Administration Protocol REMDESIVIR 100 mg/ Sodium 250 mls @ 500 mls/hr 12/31/20 21:00 01/01/21 21:20 Chloride IV 01/03/21 21:29 500 mls/hr Q24HR@2100 LUCIUS Administration Insulin Human Regular 0 units 12/31/20 12:00 01/02/21 12:54 Insulin Regular, Human 100 Units/1 Ml SUB-Q Not Given Q6HR [facility] Protocol Metoclopramide HCl 5 mg 12/30/20 16:00 01/02/21 09:55 Metoclopramide 10 Mg/2 Ml Inj IV 5 mg BID LUCIUS Administration Ondansetron HCl 4 mg 12/25/20 15:00 12/27/20 08:54 Ondansetron 4 Mg/2 Ml Inj IV 4 mg Q8H PRN Administration Nausea And Vomiting Quetiapine Fumarate 50 mg 01/01/21 15:00 01/02/21 09:55 Quetiapine 25 Mg Tab PO 50 mg BID LUCIUS Administration Simple Syrup 15 ml 12/29/20 16:34 Simple Syrup 15 Ml FEEDTUBE PRN PRN Hypoglycemia Simple Syrup 30 ml 12/29/20 16:34 Simple Syrup 15 Ml FEEDTUBE PRN PRN Hypoglycemia Sodium Bicarbonate 325 mg 12/29/20 16:34 Sodium Bicarbonate 325 Mg Tab FEEDTUBE PRN PRN For Clogged Feeding Tube Sodium Chloride 10 ml 12/25/20 22:00 01/02/21 09:50 Sodium Chloride 0.9% 10 Ml Flush Syringe IV 10 ml BID LUCIUS Administration Sodium Chloride 10 ml 12/25/20 13:55 Sodium Chloride 0.9% 10 Ml Flush Syringe IV 01/05/21 13:54 PRN PRN LINE FLUSH Sodium Chloride 50 ml 12/30/20 12:00 01/01/21 21:21 Sodium Chloride 0.9% 50 Ml Ivpb IV 01/03/21 21:01 50 ml Q24HR@2100 LUCIUS Administration Zinc Sulfate 220 mg 12/30/20 22:00 01/02/21 09:51 Zinc Sulfate 220 Mg Cap PO 220 mg BID LUCIUS Administration Nutrition/Malnutrition Assess - Dietary Evaluation Nutrition/Malnutrition Findings: Nutrition Notes Start: 12/26/20 14:05 Freq: Status: Active Protocol: Document 01/01/21 12:44 (Rec: 01/01/21 12:47 JESSICA [id number]) Nutrition Notes Initial or Follow up Reassessment Current Diagnosis Diabetes,Sepsis,Hypertension Other Pertinent Diagnosis dementia, UTI, COVID(+) Current Diet Glucerna 1.2 at 45 ml/hr Labs/Tests Na 149 Pertinent Medications Reglan Height 5 ft 3 in Weight 77.1 kg [place] Body Weight (kg) 52.27 BMI 30.1 Weight Status Obese Subjective/Other Information FU for TF tolerance. Per RN, pt tolerating. Informed RN to increase water flush. Percent of energy/protein needs met: 94%/63% Burn Absent Trauma Absent GI Symptoms None Current % PO Negligible Minimum of two criteria No Energy Intake (non-severe) <75% Estimated Energy Requirement >7 days #2 Nutrition Diagnosis Increased nutrient needs ( specify in comment below) Diagnosis Progress(for reassessment Continues documentation) #1 Nutrition Diagnosis Inadequate oral intake Diagnosis Progress(for reassessment Continues documentation) Is patient on ventilator? No Is Patient Ambulatory and/or Out of Bed No REE-([place]. Jeor-confined to bed) 1429.380 Kcal/Kg value to use for calculation 18 Approximate Energy Requirements Using 1388 kcal/Kg Calculation Used for Recommendations Kcal/kg Additional Notes Protein: (>2g IBW) >104g Fluid: 1 ml/kcal or per MD Nutrition Intervention Change Diet Order: Continue Nutrition Support: Glucerna 1.2 at 45 ml/hr Flush 175 ml q4h for hypernatermia. Once resolved, flush 75 ml q4h Kcal 1,296 Protein (gm) 65 Carbohydrates (gm) 124 Fat (gm) 65 Fluid (mL) 869 Goal #1 Meet at least 60% of protein and 80% energy needs via TF Anticipated Discharge Needs: Unable to determine at this time Follow-Up By: 01/03/21 Additional Comments FU for TF tolerance, Na
--- NOTE | 2021-01-02 18:34 | Death Summary ---
Summary - Providers Date of service: 01/02/21 Consults: 12/26/20 02:51 Consult to Dietitian/Nutrition [CONS] Routine Physician Instructions: Reason For Exam: Reason for Consult: Poor oral intake 12/26/20 09:50 Physical Therapy Evaluation and Treat [CONS] Routine Comment: Reason For Exam: Debility 12/27/20 15:19 Consult to Physician [CONS] Routine Comment: Consulting Provider: AUDIE SCHMID Physician Instructions: Reason For Exam: leukocytosis 12/28/20 10:17 Consult to Physician [CONS] Routine Comment: Consulting Provider: CODY MADRIGAL Physician Instructions: Reason For Exam: acute respiratory failure 12/29/20 12:29 Consult to Case Management [CONS] Routine Services Needed at Discharge: Other Additional Physician Instructions: inpt hospice 12/29/20 16:35 Consult to Dietitian/Nutrition [CONS] Routine Physician Instructions: Assess nutrtn needs, initiate, modify, manage TF Reason For Exam: Reason for Consult: Write/Manage Tube Feeding Reason for Consult: Write/Manage Tube Feeding 01/01/21 10:18 Midline [Consult to PICC Line RN] [CONS] Stat Reason For Exam: access needed Type Line:: PICC 01/02/21 08:00 Consult to Wound/ET Nurse [CONS] Routine Reason For Exam: wound eval: nose bridge Attending: TYRON GIBSON MD - summary Date of admission: 12/25/20 13:55 Date of : 01/02/21 Reason for admission: Acute respiratory failure Significant findings: 85 YO Female with HTN, DM, presents ED for generalized weakness and not eating and drinking well. In the ER patient found to have hyponatremia hypokalemia dehydration and physical debility. Patient admitted to the medical floor for further evaluation and management. Now developed respiratory failure with aspiration pneumonia and positive for COVID-19. Final diagnoses Sepsis likely secondary to bilateral probable aspiration pneumonia Acute hypoxic respiratory failure, not POA COVID-19 infection Acute encephalopathy Leukocytosis Hypernatremia Elevated D-dimer Hyperchloremia Acute kidney injury Vascular dementia Hypertension Diabetes mellitus Physical debility History This 85-year-old female with hypertension, diabetes, vascular dementia without behavior disturbance, cerebral atherosclerosis presented to emergency department on 12/25 with complaints of feeling weak and confusion over the past 2 weeks with inability to walk and diminished oral intake work-up in the emergency department revealed a urinary tract infection complicated by sepsis, hyponatremia, hypokalemia and debility. On subsequent CXR patient noted to have aspiration pneumonia. Patient COVID-19 PCR is positive. Patient was admitted to the hospital service with consults to infectious disease, [facility]. 12/26/20; continue IV fluids. Resume home meds, continue consistent carb with sliding scale insulin. Start on nutritional supplement as pt is Having limited oral intake. PT eval, discussed with sample case porter for hospice placement. 12/27/20; white count remains elevated, no clear source of infection yet. Continue to replete potassium-today K was 2.8. patient spiking fever, will consult ID. 12/28/20; Discussed with patient's daughter and pt did not have covid vaccine yet. family also denies any h/o dementia, will order COVID test. patient o/n placed on BIPAP and cxr showing consolidation. transferred to ICU. Consult CC, ID following. cont gentle hydration. Family wants to keep the patient full code 12/29/20; Positive for COVID, consult ID. family wants hospice and DNR, But they also want to cont with treatment for COVID. Start on steroid, will order remdesivir if Cr level improves. 12/30/20: We will initiate on remdesivir as renal function has improved. Treat hyperkalemia with Kayexalate bicarbonate and calcium gluconate. Continue dexamethasone and BiPAP. Unable to place for inpatient hospice as patient is Covid positive. But family also wished to continue treatment for COVID-19. D-dimer noted to be elevated -we will initiate on therapeutic dose of Eliquis. Continue to monitor H&H. Will start on tube feeding, continue gentle IV fluid h ydration with D5 normal saline. 12/31: Patient remains on continuous BiPAP and is on tube feedings with scheduled Reglan to prevent aspiration per [facility]. Patient has improving leukocytosis and D-dimer. Patient has hypernatremia and hyperchloremia today with slight improvement to creatinine to 1.1 from 1.2. Patient is hyperglycemic and long- acting insulin has been adjusted. We will continue to monitor LFTs while on remdesivir. Patient is not a candidate for inpatient hospice due to positive COVID-19 and only option will be home hospice which will be discussed by case management with family. 01/01: Patient remains on 100% BiPAP therapy and was noted to be slightly more hypoxic with SPO2 ranging from upper 80s to low 90s throughout the day. Family was called and informed. Patient's MRSA PCR is still pending. Due to patient being on vancomycin per IV access nurse midline would be inappropriate because vancomycin is caustic to midline. Upon insistence of IV nurse PICC line was ordered to be placed. Dr. Zimmerman spoke to the family and they agreed upon home hospice. This was attempted to be communicated to however she was unavailable. Dr. Zimmerman stated that he will also reach out to [facility] [place]. 01/02: Patient became hypotensive overnight and received 1 L bolus of IV fluids. Per CCM we will hold tube feedings and continue therapy water flushes due to hypernatremia. Patient is more somnolent today and home hospice is here to evaluate the patient for possible admission. Patient has leukocytosis, hypernatremia, hyperchloremia and BUN/creatinine have increased. Disposition:
[2021-01-02 18:58] VITALS: BP 153/118
[2021-01-20 11:18] LABS: MRSA PCR TNR (Negative)
== END 2021-01-02 20:30 | DRG 871 ==
LOC: ED 11:15 → INTOOBSV 13:55 → 3A 13:55 → OBSVTOIN 13:55 → 3A 15:30 → OBSVTOIN 12-27 11:00 → INTOOBSV 12-27 11:00 → IMCU 12-28 11:17 → CC1 12-28 12:32
PROVIDERS: ADMIT Internal Medicine; ATTEND Family Medicine
PROC: 4A033R1 Measurement of Arterial Saturation, Peripheral, Percutaneous Approach (ICD-10-PCS; 2020-12-27)
PROC: 5A09557 Assistance with Respiratory Ventilation, Greater than 96 Consecutive Hours, Continuous Positive Airway Pressure (ICD-10-PCS; 2020-12-28)
PROC: XW033E5 Introduction of Remdesivir Anti-infective into Peripheral Vein, Percutaneous Approach, New Technology Group 5 (ICD-10-PCS; principal; 2020-12-30)
PROC: 02HV33Z Insertion of Infusion Device into Superior Vena Cava, Percutaneous Approach (ICD-10-PCS; 2021-01-01)
DX: A41.89 Other specified sepsis (principal); U07.1 COVID-19; J69.0 Pneumonitis due to inhalation of food and vomit; G92 Toxic encephalopathy; J96.02 Acute respiratory failure with hypercapnia; J96.01 Acute respiratory failure with hypoxia; J12.82 Pneumonia due to coronavirus disease 2019; N39.0 Urinary tract infection, site not specified; E87.1 Hypo-osmolality and hyponatremia; N17.9 Acute kidney failure, unspecified; E87.0 Hyperosmolality and hypernatremia; F01.50 Vascular dementia, unspecified severity, without behavioral disturbance, psychotic disturbance, mood disturbance, and anxiety; I67.2 Cerebral atherosclerosis; R53.81 Other malaise; I10 Essential (primary) hypertension; E11.9 Type 2 diabetes mellitus without complications; E87.6 Hypokalemia; R65.20 Severe sepsis without septic shock; E86.0 Dehydration; Z66 Do not resuscitate; Z82.49 Family history of ischemic heart disease and other diseases of the circulatory system; Z83.3 Family history of diabetes mellitus; Z88.0 Allergy status to penicillin; Z79.899 Other long term (current) drug therapy
CPT/HCPCS: 36415; 36600; 71045; 74018; 80048; 80053; 80202; 81001; 82140; 82565; 82728; 82803; 82805; 82947; 82962; 83615; 83735; 84100; 84132; 84145; 85007; 85025; 85027; 85379; 85610; 85730; 86140; 86850; 86870; 86900; 86901; 87040; 87641; 93005; 93970; 94640; 94660; 96374; 96375; G0378; J0360; J0610; J0692; J0696; J1100; J1170; J1644; J1815; J1940; J1956; J2405; J2765; J3370; J3475; J3480; J7030; J7040; J7042; J7050; U0003